=== PATIENT | female | born 1975 | race Caucasian/White ===

== ENCOUNTER 2019-10-20 09:28 | Outpatient (CLI) | payer MEDICAID, SELFPAY ==
--- NOTE | ~2019-10-20 | MMUS_ITS ---
EXAMINATION: MM screen LT diag RT w manuela, US breast RT limited HISTORY: Low up right breast masses TECHNIQUE: Additional 3-D tomosynthesis images of the right breast were performed and synthetic 2-D i mages were generated. Digital screening left mammogram performed with tomographic images. CAD analysi s was submitted and interpreted. High resolution right breast ultrasound was performed. COMPARISON: Comparison to multiple prior studies sequentially, with oldest reviewed study dated 12/28. BREAST PARENCHYMAL COMPOSITION: The breasts are extremely dense, which lowers the sensitivity of mamm ography FINDINGS: MAMMOGRAPHIC FINDINGS: The breasts are extremely dense, which lowers the sensitivity of mammography. There are no suspicious masses, calcifications or architectural distortion in either breast to suggest malignancy. ULTRASOUND: Right breast ultrasound: There are multiple cysts scattered throughout the right breast. There is an intramammary lymph node a t 11:00, 4 cm from the nipple measuring 8 mm. Largest cyst is 11:00 measuring 1.3 cm greatest dimensi on. No suspicious masses or calcifications to suggest malignancy. IMPRESSION: 1. No evidence for malignancy in either breast. 2. Routine yearly screening mammogram and regular clinical breast examination are recommended. BI-RADS Category 2: Benign finding(s). Reviewed, dictated and finalized at location A. IMPRESSION: 1. No evidence for malignancy in either breast. 2. Routine yearly screening mammogram and regular clinical breast examination a re recommended. BI-RADS Category 2: Benign finding(s).
[2019-10-20 09:39] LABS: Basophils Absolute Auto 0.03 K/mm3 (0.00-0.10); Basophils Percent Auto 0.4 % (0.0-1.0); Eosinophils Absolute Auto 0.08 K/mm3 (0.02-0.50); Eosinophils Percent Auto 1.1 % (1.0-6.0); Hematocrit 41.2 % (35.0-49.0); Hemoglobin 13.6 g/dL (12.0-15.0); Immature Granulocyte Absolute 0.02 K/mm3 (0.00-0.00); Immature Granulocyte Percent A 0.3 % (0.0-0.0); Lymphocytes Absolute Auto 2.86 K/mm3 (1.10-4.50); Lymphocytes Percent Auto 37.8 % (18.0-42.0); Mean Corpuscular Hemoglobin 30.8 pg (27.0-31.0); Mean Corpuscular Volume 93.2 fL (78.0-102.0); Mean Platelet Volume 9.2 fl (9.2-11.8); Monocytes Absolute Auto 0.58 K/mm3 (0.10-0.90); Monocytes Percent Auto 7.7 % (2.0-11.0); Neutrophils Percent Auto 52.7 % (50.0-70.0); Platelet Count Result 295 K/mm3 (150-420); Red Blood Count 4.42 M/mm3 (4.20-5.40); Red Cell Distribution Width 12.3 % (11.6-14.4); White Blood Count 7.6 K/mm3 (4.8-10.8)
[2019-10-20 10:37] LABS: Alanine Aminotransferase 32 U/L (14-59); Alkaline Phosphatase 45 U/L (46-116); Anion Gap 9.8 mmol/L (7-16); Aspartate Amino Transferase 16 U/L (15-37); Bilirubin,Total 0.7 mg/dL (0.00-1.00); Blood Urea Nitrogen 15 mg/dL (7-18); Calcium 9.3 mg/dL (8.5-10.1); Carbon Dioxide 31 mmol/L (21-32); Chloride 103 mmol/L (98-108); Cholesterol 156 mg/dL (0-200); Estimated Glomerular Filt Rate > 60; Glucose 103 mg/dL (70-99); HDL Direct 47 mg/dL (40-60); LDL Cholesterol Calculated 97 mg/dL (<130); Osmolality Calculated 288 mOsm/kg (285-295); Potassium 4.8 mmol/L (3.5-5.1); Sodium 139 mmol/L (136-145); Thyroid Stimulating Hormone 0.83 uIU/mL (0.36-3.74); Triglycerides 60 mg/dL (0-150)
== END 2019-10-20 09:29 | disposition home or self-care (01) ==
PROVIDERS: PCP Family Medicine; Visit Provider Family Medicine
DX: Z12.31 Encounter for screening mammogram for malignant neoplasm of breast (principal); N63.10 Unspecified lump in the right breast, unspecified quadrant; E78.2 Mixed hyperlipidemia
CPT/HCPCS: 36415; 76642; 77063; 77065; 77067; 80053; 80061; 84443; 85025

== ENCOUNTER 2019-11-12 16:04 | Emergency (ER) | payer OTHER, SELFPAY ==
--- NOTE | ~2019-11-12 | XR_ITS ---
XR wrist LT min 3V DATE: 11/12/2019 17:14 INDICATION: Contusion, tender snuffbox, dorsal wrist pain. TECHNIQUE: 4 views COMPARISON: None FINDINGS: No fracture or dislocation, periosteal reaction or bone destruction. No chondrocalcinosis. No erosive change. Joint spaces are preserved. IMPRESSION: Negative Reviewed, dictated and finalized at location A. IMPRESSION: Negative
[2019-11-12 16:15] VITALS: BP 130/90; PULSE 93; RESP 14; TEMP 36.8; O2SAT 98
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
[2019-11-12] MEDS: IBUPROFEN 600 MG TABLET PO (17:28)
[2019-11-12 18:36] VITALS: RESP 15; O2SAT 100
== END 2019-11-12 18:37 | disposition home or self-care (01) ==
PROVIDERS: Emergency Provider Family Medicine; PCP Family Medicine
DX: S60.212A Contusion of left wrist, initial encounter (principal); W20.8XXA Other cause of strike by thrown, projected or falling object, initial encounter
CPT/HCPCS: 73110; 99281; 99283; A4565; A9270

== ENCOUNTER 2019-11-16 13:36 | Outpatient (CLI) | payer OTHER, SELFPAY ==
--- NOTE | ~2019-11-16 | XR_ITS ---
EXAMINATION: XR wrist LT min 3V DATE: 11/16/2019 13:50 INDICATION: Left wrist pain. TECHNIQUE: 4 views of left wrist were obtained. COMPARISON: Left wrist radiographs 11/12/2019 FINDINGS: Bone alignment is normal. No fracture. Joint spaces are well maintained. IMPRESSION: 1. Normal left wrist. Reviewed, dictated and finalized at location A. IMPRESSION: 1. Normal left wrist.
== END 2019-11-16 13:37 | disposition home or self-care (01) ==
LOC: CHSIMG 13:38
PROVIDERS: PCP Family Medicine; Visit Provider Family Medicine
DX: M25.532 Pain in left wrist (principal)
CPT/HCPCS: 73110

== ENCOUNTER 2020-03-11 10:29 | Outpatient (CLI) | payer OTHER, SELFPAY ==
--- NOTE | ~2020-03-11 | XR_ITS ---
EXAMINATION: XR lumbar spine 2-3V EXAM DATE: 03/11/2020 10:47 INDICATION: Lumbar radiculopathy, hip pain, possible gluteal tear. TECHNIQUE: Lumber spine frontal, lateral, lateral L5-S1 projections for interpretation. Comparison is made to prior examination from 11/12/2008. FINDINGS: There is mild disc disease L2-3. The vertebral body and disc heights are otherwise well ma intained. The vertebral bodies are aligned in the AP dimension. Mild lumbar facet arthropathy. No reed dence of spondylolysis. Sacrum, sacroiliac joints, sacral arcuate lines are intact. Paraspinal soft t issue is unremarkable. IMPRESSION: Mild lumbar spondylosis. Reviewed, dictated and finalized at location A. 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
== END 2020-03-11 10:30 | disposition home or self-care (01) ==
LOC: CHSLAB 10:31
PROVIDERS: PCP Family Medicine; Visit Provider Family Medicine
DX: M54.16 Radiculopathy, lumbar region (principal)
CPT/HCPCS: 72100

== ENCOUNTER 2020-03-15 16:00 | Outpatient (CLI) | payer OTHER, SELFPAY ==
--- NOTE | ~2020-03-15 | XR_ITS ---
XR hip RT min 2V 03/15/2020 16:14 INDICATION: Right hip pain PROCEDURE: 2 views right hip COMPARISON: 10/26/2006 FINDINGS: Fracture, dislocation or subluxation is not identified. No significant joint space narrowin g. The soft tissues appear within normal limits. No foreign bodies are identified. IMPRESSION: 1: NO ACUTE BONE OR JOINT ABNORMALITY IDENTIFIED. Reviewed, dictated and finalized at location A. ET SORTER
== END 2020-03-15 16:01 | disposition home or self-care (01) ==
LOC: CHSIMG 16:01
PROVIDERS: PCP Family Medicine; Visit Provider Family Medicine
DX: M25.551 Pain in right hip (principal)
CPT/HCPCS: 73502

== ENCOUNTER 2020-04-09 14:21 | Outpatient (RCR) | payer OTHER, SELFPAY ==
--- NOTE | 2020-04-10 06:47 | PTOPEVAL ---
Thank you for referring Devika Allan to [facility].? The patient is scheduled to be seen for therapy? _2___x/week for 12 visits. Please review, sign, date and return this plan of care SHELLY. I agree with and certify that the following plan of care is medically necessary. Referring Physician Date Admitting Provider: Attending Provider: Maury Smith MD Referring Provider: *PT Outpatient Evaluation Start: 04/09/20 15:05 Freq: Status: Active Protocol: Document 04/09/20 15:05 MAURICIO (Rec: 04/09/20 16:11 MAURICIO [email or web address]) Therapy Assessment Status Assessment Status Assessment Status Evaluation Outpatient Past Medical History Musculoskeletal History Hx Orthopedic Surgery Yes: LEFT ULNAR Hx Other Musculoskeletal Disorders Yes: SI DYSFUNCTION AND DDD Reproductive History Hx Other Reproductive Disorders Yes: CERVICAL ABLATION Psychosocial History Hx Depression Yes Evaluation Information Problem Diagnosis right hip pain Onset 03/18/20 Additional Evaluation Detail Pt. scores 15/80 on the LEFS Subjective Information Pt. reports that she has had Query Text:As Reported By Patient/ pain in the area of the right Family buttock since 2002. She reports that her pain is constant. Pt. reports that weather increases her pain as well as any prolonged positions. She reports that she does not drive due to the pain and weakness in her leg. She states that her leg gives out and she has fallen because the right l.e. will give out. she has seen speicalist in the past with little relief from treatment interventions. She has had lumbar injections and therapy in the past without relief. Pt. reports that she has had recent xray and has not had recent MRI. Pt. reports that she is currently off work due to her pain and has not worked in 3 years. She reports that her goal is to decrease her pain. Prior Level of Function Activity Level (Last 3 Months) Occupation disabled Hand Dominance Right Activity of Daily Living Ability Independent Indoor/Home Mobility
--- NOTE | 2020-07-01 17:17 | PCPTNOTE ---
Pt. attended a total of 7 treatment sessions from 04/09/20 to 05/02/20. She has failed to return to the clinic and will be discharged from our care. Refer to pt. last daily note for dischare status. Jonel Santos, MPT
== END 2020-05-02 09:14 | disposition home or self-care (01) ==
LOC: CHSPT 14:21
PROVIDERS: PCP Family Medicine; Visit Provider Family Medicine
DX: M25.551 Pain in right hip (principal)
CPT/HCPCS: 97014; 97110; 97140; 97161; G0283

== ENCOUNTER 2020-08-01 12:16 | Outpatient (CLI) | payer OTHER, SELFPAY ==
--- NOTE | 2020-08-14 12:29 | WPDHOLTEREM ---
Holter/Event Monitor Holter/Event Monitor Date of procedure: 08/01/20 Procedure Type: event monitor Indications: Palpitations Conclusion: 1. 4 days event monitor between 08/01/20-08/14/20. There are 15 available transmissions for analysis. 2. Predominant rhythm is sinus rhythm. HR range 55-138 bpm; average HR 78 bpm. 3. There are occasional premature supraventricular complexes with total burden of <1%. There is one episode of atrial tachycardia at 133 bpm lasting 5 beats and one episode of supraventricular tachycardia at 138 bpm lasting 6 beats. 4. There are occasional premature ventricular complexes with total burden of <1%. No ventricular tachycardia. 5. No significant pauses greater than 2 seconds. 6. Patient reports 8 episodes of symptoms of skipped beats, heart racing, lightheadedness, symptoms other than listed which demonstrate sinus rhythm HR range 62-138 bpm and atrial tachycardia and supraventricular tachycardia mentioned above.
== END 2020-08-01 12:17 | disposition home or self-care (01) ==
LOC: CHSCARD 12:20
PROVIDERS: PCP Family Medicine; Visit Provider Family Medicine
DX: R00.2 Palpitations (principal)
CPT/HCPCS: 93270

== ENCOUNTER 2020-10-10 15:51 | Emergency (ER) | payer OTHER, SELFPAY | END 2020-10-10 16:00 | disposition left against medical advice (07) | PROVIDERS: Emergency Provider Emergency Medicine; PCP Family Medicine | DX: Z00.00 Encounter for general adult medical examination without abnormal findings (principal) | CPT/HCPCS: 99199 ==

== ENCOUNTER 2020-11-04 11:01 | Outpatient (CLI) | payer OTHER, SELFPAY ==
--- NOTE | ~2020-11-04 | XR_ITS ---
EXAMINATION: XR knee LT 3V DATE: 11/04/2020 11:21 INDICATION: Left knee pain. TECHNIQUE: 3 views of left knee were obtained. COMPARISON: None. FINDINGS: Bone alignment is normal. No fracture. There is mild osteoarthritis of patellofemoral noemi rtment characterized by tiny marginal osteophytes. There is no knee joint effusion. IMPRESSION: 1. Mild left knee osteoarthritis. Reviewed, dictated and finalized at location A.
== END 2020-11-04 11:02 | disposition home or self-care (01) ==
LOC: CHSIMG 11:02
PROVIDERS: PCP Family Medicine; Visit Provider Family Medicine
DX: M25.562 Pain in left knee (principal)
CPT/HCPCS: 73562

== ENCOUNTER 2020-12-17 12:18 | Outpatient (CLI) | payer MEDICARE, MEDICAID, SELFPAY ==
--- NOTE | ~2020-12-17 | MM_ITS ---
EXAMINATION: MM screening trish BI w manuela HISTORY: Screening mammogram TECHNIQUE: Craniocaudal and mediolateral oblique 3-D tomosynthesis images were obtained and synthetic 2-D images were generated. CAD analysis was submitted and interpreted. COMPARISON: 10/20/2019 BREAST PARENCHYMAL COMPOSITION: The breasts are heterogeneously dense, which may obscure small masses . FINDINGS: There is no evidence of suspicious mass, calcification, or architectural distortion to sugg est malignancy in either breast. There has been no suspicious interval change. IMPRESSION: 1. No mammographic evidence of malignancy. 2. Recommend routine screening mammography in one year. BI-RADS Category 1: Negative Reviewed, dictated and finalized at location A.
== END 2020-12-17 12:19 | disposition home or self-care (01) ==
LOC: CHSIMG 12:22
PROVIDERS: PCP Family Medicine; Visit Provider Family Medicine
DX: Z12.31 Encounter for screening mammogram for malignant neoplasm of breast (principal)
CPT/HCPCS: 77063; 77067

== ENCOUNTER 2021-01-03 08:02 | Outpatient (CLI) | payer MEDICARE, SELFPAY ==
[2021-01-03 08:20] LABS: Basophils Absolute Auto 0.04 K/mm3 (0.00-0.10); Basophils Percent Auto 0.5 % (0.0-1.0); Eosinophils Absolute Auto 0.08 K/mm3 (0.02-0.50); Eosinophils Percent Auto 1.1 % (1.0-6.0); Hemoglobin 15.5 g/dL (12.0-15.0); Immature Granulocyte Absolute 0.05 K/mm3 (0.00-0.00); Immature Granulocyte Percent A 0.7 % (0.0-0.0); Lymphocytes Absolute Auto 3.25 K/mm3 (1.10-4.50); Mean Corpuscular HGB Conc 33.7 g/dL (32.0-36.0); Mean Corpuscular Hemoglobin 31.1 pg (27.0-31.0); Mean Corpuscular Volume 92.4 fL (78.0-102.0); Mean Platelet Volume 9.4 fl (9.2-11.8); Monocytes Absolute Auto 0.51 K/mm3 (0.10-0.90); Monocytes Percent Auto 6.7 % (2.0-11.0); Neutrophils Absolute Auto 3.6 K/mm3 (1.7-7.2); Platelet Count Result 334 K/mm3 (150-420); Red Blood Count 4.98 M/mm3 (4.20-5.40); Red Cell Distribution Width 12.5 % (11.6-14.4); White Blood Count 7.6 K/mm3 (4.8-10.8)
[2021-01-03 10:08] LABS: Alanine Aminotransferase 31 U/L (14-59); Albumin Level 4.1 g/dL (3.4-5.0); Alkaline Phosphatase 53 U/L (46-116); Anion Gap 12 mmol/L (8-16); Aspartate Amino Transferase 11 U/L (15-37); Bilirubin,Total 0.8 mg/dL (0.00-1.00); Blood Urea Nitrogen 13 mg/dL (7-18); Calcium 9.6 mg/dL (8.5-10.1); Carbon Dioxide 26 mmol/L (21-32); Chloride 104 mmol/L (98-108); Cholesterol 210 mg/dL (0-200); Estimated Glomerular Filt Rate > 60; Glucose 99 mg/dL (70-99); HDL Direct 35 mg/dL (40-60); LDL Cholesterol Calculated 128 mg/dL (<130); Osmolality Calculated 294 mOsm/kg (285-295); Potassium 4.5 mmol/L (3.5-5.1); Sodium 142 mmol/L (136-145); Total Protein 7.1 g/dL (6.4-8.2); Triglycerides 235 mg/dL (0-150)
== END 2021-01-03 08:03 | disposition home or self-care (01) ==
PROVIDERS: PCP Family Medicine; Visit Provider Family Medicine
DX: R53.83 Other fatigue (principal); Z13.220 Encounter for screening for lipoid disorders; Z00.00 Encounter for general adult medical examination without abnormal findings; Z13.6 Encounter for screening for cardiovascular disorders
CPT/HCPCS: 36415; 80053; 80061; 85025

== ENCOUNTER 2021-04-03 16:15 | Outpatient (CLI) | payer MEDICARE, SELFPAY ==
[2021-04-03 17:15] LABS: Influenza Control Valid (Valid); SARS-CoV-2 Ag Positive (Negative)
== END 2021-04-03 16:16 | disposition home or self-care (01) ==
LOC: CHSLAB 16:22
PROVIDERS: PCP Family Medicine; Visit Provider Family Medicine
DX: U07.1 COVID-19 (principal); R50.9 Fever, unspecified
CPT/HCPCS: 87426; 87804; C9803

== ENCOUNTER 2021-05-21 09:13 | Outpatient (CLI) | payer MEDICARE, MEDICAID, SELFPAY ==
--- NOTE | ~2021-05-21 | XR_ITS ---
EXAMINATION:XR_CERV2-3V_CR DATE: 05/21/2021 09:41 INDICATION: Neck pain TECHNIQUE: AP, lateral, and odontoid views of the cervical spine are provided. COMPARISON: None FINDINGS: Alignment is normal. The odontoid is intact. No fracture is identified. The vertebral body heights are normal. There is mild loss of intervertebral disc space height at C5-6 and C6-7. Small de generative osteophytes project from the anterior endplates of multiple vertebral bodies. There is mod erate multilevel facet osteoarthritis. Prevertebral soft tissues are normal. IMPRESSION: 1. Mild to moderate cervical spondylosis without acute findings. Reviewed, dictated and finalized at location A. 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
== END 2021-05-21 09:14 | disposition home or self-care (01) ==
PROVIDERS: PCP Family Medicine; Visit Provider Family Medicine
DX: M54.12 Radiculopathy, cervical region (principal)
CPT/HCPCS: 72040

== ENCOUNTER 2021-06-05 09:24 | Outpatient (CLI) | payer MEDICARE, MEDICAID, SELFPAY ==
--- NOTE | 2021-06-05 11:00 | NEURO_ITS ---
Impression:: # Complains of right upper extremity numbness. # No Carpal Tunnel Syndrome or ulnar neuropathy. # Normal nerve conduction study. # Needle/EMG exam not requested. Nerve Conduction Studies Anti Sensory Summary Table Stim Site NR Peak (ms) P-T Amp (?V) Site1 Site2 Delta-P (ms) Dist (cm) Edward (m/s) Right Median Anti Sensory (2-3nd Digit) Wrist 2.8 63.0 Wrist 2-3nd Digit 2.8 14.0 50 Wrist 2.8 40.1 Wrist 2-3nd Digit 2.8 14.0 50 Right Radial Anti Sensory (Base 1st Digit) Wrist 2.1 17.5 Wrist Base 1st Digit 2.1 0.0 Right Ulnar Anti Sensory (5th Digit) Wrist 2.1 37.6 Wrist 5th Digit 2.1 14.0 67 Motor Summary Table Stim Site NR Onset (ms) O-P Amp (mV) Site1 Site2 Delta-0 (ms) Dist (cm) Edward (m/s) Right Median Motor (Abd Poll Brev) Wrist 3.1 3.2 Elbow Wrist 4.5 26.0 58 Elbow 7.6 2.8 Right Ulnar Motor (Abd Dig Minimi) Wrist 2.6 4.9 A Elbow Wrist 4.9 28.0 57 A Elbow 7.5 4.2 F Wave Studies NR F-Lat (ms) L-R F-Lat (ms) Right Median (Mrkrs) (Abd Poll Brev) 27.19 Right Ulnar (Mrkrs) (Abd Dig Min) 27.08 MTDD
== END 2021-06-05 09:25 | disposition home or self-care (01) ==
LOC: ANHNEURO 09:27
PROVIDERS: PCP Family Medicine; Visit Provider Family Medicine
DX: M54.12 Radiculopathy, cervical region (principal)
CPT/HCPCS: 95909

== ENCOUNTER 2021-06-05 11:51 | Outpatient (CLI) | payer MEDICARE, MEDICAID, SELFPAY ==
--- NOTE | ~2021-06-05 | XR_ITS ---
EXAMINATION: XR chest 2V DATE: 06/05/2021 12:08 INDICATION: Shortness of breath. Cough. TECHNIQUE: Frontal and lateral views of the chest were obtained. COMPARISON: None. FINDINGS: The chest demonstrates clear lungs without pneumonia, pleural effusion, or pneumothorax. Th e heart size is normal. Surgical clips in the right upper quadrant are likely from cholecystectomy. IMPRESSION: 1. No acute cardiopulmonary disease. Reviewed, dictated and finalized at location A. 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
== END 2021-06-05 11:52 | disposition home or self-care (01) ==
LOC: CHSIMG 11:54
PROVIDERS: PCP Family Medicine; Visit Provider Family Medicine
DX: R06.02 Shortness of breath (principal); R05.9 Cough, unspecified
CPT/HCPCS: 71046

== ENCOUNTER 2021-06-06 09:39 | Outpatient (CLI) | payer MEDICARE, MEDICAID, SELFPAY | END 2021-06-06 09:40 | disposition home or self-care (01) | LOC: CHSCARD 09:40 | PROVIDERS: PCP Family Medicine; Visit Provider Family Medicine | DX: R06.02 Shortness of breath (principal); R05.9 Cough, unspecified | CPT/HCPCS: 94060; 94726; 94729 ==

== ENCOUNTER 2021-06-19 00:08 | Day surgery (SDC) | payer MEDICARE, MEDICAID, SELFPAY ==
[2021-06-05 14:51] VITALS: BMI 31.2
--- NOTE | 2021-06-19 06:33 | WPDANESEPPF ---
Anes - Initial Pre Proc Eval Procedure: Operation Date: 06/19/21 08:00 Proposed Procedures p Screening Colonoscopy - Misael Love DO Date/Time: 06/19/21 06:33 Surgeon: Misael Love DO Pre Op Diagnosis: neoplasm screening Patient Data Age: 45 Gender: F Height: 1.6 m Weight: 80 kg Allergies Allergy/AdvReac Type Severity Reaction Status Date / Time naproxen Allergy Unknown Verified 06/19/21 07:00 Sulfa (Sulfonamide Allergy Unknown Verified 06/19/21 07:00 Antibiotics) tramadol Allergy Unknown Verified 06/19/21 07:00 IV DYE Allergy Unknown Uncoded 06/05/21 14:48 Home Medications Medication Instructions Recorded Confirmed Type citalopram 40 mg PO DAILY 11/12/19 06/19/21 History cyclobenzaprine 10 mg PO HS PRN 11/12/19 06/19/21 History hydrocodone-acetaminophen 1 tablet PO PRN 11/12/19 06/19/21 History albuterol sulfate 2 puff INHALATION PRN 06/05/21 06/19/21 History famotidine 40 mg PO DAILY 06/05/21 06/19/21 History Patient hx anesthesia problems: none Family hx anesthesia problems: none Results Review: All pre-operative results and documents have been reviewed as part of the pre-operative evaluation. [facility] Past Medical History Medical History (Updated 06/19/21 @ 06:34 by Eugene Marie DO) Asthma COPD (chronic obstructive pulmonary disease) DDD (degenerative disc disease) Depression GERD (gastroesophageal reflux disease) SI (sacroiliac) joint dysfunction Social History Social History (System 04/28/21 @ 09:07 by Yaneth Erickson) Smoking status: Current some day smoker Tobacco type: e-cigarettes/vaping Alcohol intake: never Substance use: never Substance use type: does not use Living arrangements: with family Spiritual care concerns: No Anes - Eval Final PreProcedure Day of Procedure 06/19/21 06:33 Patient weight: obese Heart: regular rate and rhythm Lungs: clear to auscultation and normal air movement Airway: Mallampati scale class II Neurological: alert and oriented Last oral intake: >/= 8 hours ASA classification: III Emergent: no Anesthetic plan: proceed Anesthesia type and monitoring: general GIVS and standard monitoring Results Review: All pre-operative results and documents have been reviewed as part of the pre-operative evaluation. Informed Consent: The patient's anesthetic plan and its attendant risks and benefits were discussed with the patient/family/POA. Questions were solicited and answers provided to the satisfaction of the patient/family/POA.
[2021-06-19 06:45] VITALS: BP 113/71; PULSE 100; RESP 18; TEMP 37.3; O2SAT 100; BMI 31.4
[2021-06-19] MEDS: LACTATED RINGERS 1,000 ML 150 ML IV CONT (07:15)
--- NOTE | 2021-06-19 08:05 | PM.IMHP ---
H&P: HPI History of Present Illness Date/Time: 06/19/21 08:05 Chief Complaint: screening for colorectal cancer Narrative: this is a 45-year-old woman who presents for colonoscopy. She has some occasional constipation but denies any other bowel habit changes. She has never had a colonoscopy before. She has an uncle who had colon cancer, but denies any first-degree relatives with colon cancer. She denies any hematochezia or melena. Review of Systems Review of Systems: All systems reviewed & are unremarkable except as noted in HPI and below Constitutional: Constitutional: Denies chills, Denies fever(s), Denies headache(s) and Denies weight loss Eyes: Eyes: Denies change in vision ENT: Denies dizziness, Denies headache(s), Denies neck mass and Denies throat swelling Cardiovascular: Cardiovascular: Denies chest pain, Denies lightheadedness and Denies dyspnea Respiratory: Respiratory: Denies cough, Denies dyspnea and Denies wheezing Gastrointestinal: Gastrointestinal: Denies abdominal pain, Denies change in bowel habits, Denies nausea and Denies vomiting Genitourinary: Genitourinary: Denies hematuria and Denies dysuria Musculoskeletal: Musculoskeletal: Reports as per HPI Integumentary/Breasts: Skin/Breast: Reports as per HPI Neurologic: Denies dizziness and Denies headache(s) Allergic/Immunologic: Allergic/Immunologic: Denies throat swelling and Denies wheezing [facility] Past Medical History Medical History (Updated 06/19/21 @ 08:06 by Misael Love DO) Asthma COPD (chronic obstructive pulmonary disease) DDD (degenerative disc disease) Depression GERD (gastroesophageal reflux disease) SI (sacroiliac) joint dysfunction Social History Social History (System 04/28/21 @ 09:07 by Yaneth Erickson) Smoking status: Current some day smoker Tobacco type: e-cigarettes/vaping Alcohol intake: never Substance use: never Substance use type: does not use Living arrangements: with family Spiritual care concerns: No Meds Home Medications and Allergies Home Medications Medication Instructions Recorded Confirmed Type citalopram 40 mg PO DAILY 11/12/19 06/19/21 History cyclobenzaprine 10 mg PO HS PRN 11/12/19 06/19/21 History hydrocodone-acetaminophen 1 tablet PO PRN 11/12/19 06/19/21 History albuterol sulfate 2 puff INHALATION PRN 06/05/21 06/19/21 History famotidine 40 mg PO DAILY 06/05/21 06/19/21 History Allergies Allergy/AdvReac Type Severity Reaction Status Date / Time naproxen Allergy Unknown Verified 06/19/21 07:00 Sulfa (Sulfonamide Allergy Unknown Verified 06/19/21 07:00 Antibiotics) tramadol Allergy Unknown Verified 06/19/21 07:00 IV DYE Allergy Unknown Uncoded 06/05/21 14:48 Vital Signs Vital Signs - 24 hr 06/19/21 06:45 Temperature 37.3 C Pulse Rate 100 Respiratory Rate 18 Blood Pressure 113/71 Pulse Oximetry 100 Exam Const: General: no acute distress and alert Orientation/consciousness: patient oriented x3 HENMT: Head: normocephalic and atraumatic Ears: hearing grossly normal bilaterally General nose exam: Normal nares present Mouth: Yes Normal oral and palatal mucosa present Eyes: Periorbital: periorbital findings normal Sclera: sclerae normal EOM: EOMs intact bilaterally Neck: Neck: normal visual inspection, no lymphadenopathy and trachea midline Chest: Chest palpation & inspection: normal inspection of the chest Resp: Effort & Inspection: normal respiratory effort Auscultation: clear to auscultation bilaterally Cardio: Jugular venous distension: no JVD Rate: regular rate Rhythm: regular rhythm Heart sounds: S1 normal heart sound present and S2 normal heart sound present Peripheral pulses: Peripheral pulses 2+ throughout GI: Inspection: normal to inspection GI Palp: Yes Soft to palpation, No Tenderness to palpation present (GI), No Guarding due to palpation present (GI) and No Rebound tenderness present Percussion: Yes normal to percussion
[2021-06-19 08:55] VITALS: BP 107/78; PULSE 53; RESP 18; O2SAT 98
[2021-06-19 09:05] VITALS: BP 119/90; PULSE 92; RESP 20; O2SAT 98
[2021-06-19 09:15] VITALS: BP 122/72; PULSE 88; RESP 21; O2SAT 100
== END 2021-06-19 09:30 | disposition home or self-care (01) ==
PROVIDERS: PCP Family Medicine; Visit Provider Surgery
PROC: 0DJD8ZZ Inspection of Lower Intestinal Tract, Via Natural or Artificial Opening Endoscopic (ICD-10-PCS; CPT 45378; principal; 2021-06-19 08:00)
DX: Z12.11 Encounter for screening for malignant neoplasm of colon (principal); D12.2 Benign neoplasm of ascending colon; D12.3 Benign neoplasm of transverse colon; D12.5 Benign neoplasm of sigmoid colon; J44.9 Chronic obstructive pulmonary disease, unspecified; K21.9 Gastro-esophageal reflux disease without esophagitis; F32.9 Major depressive disorder, single episode, unspecified; F17.290 Nicotine dependence, other tobacco product, uncomplicated; Z79.51 Long term (current) use of inhaled steroids; E66.9 Obesity, unspecified; Z68.31 Body mass index [BMI] 31.0-31.9, adult
CPT/HCPCS: 45385; 88305; J2001; J2704; J7120

== ENCOUNTER 2021-09-26 08:16 | Outpatient (CLI) | payer MEDICARE, MEDICAID, SELFPAY ==
[2021-09-26 08:32] LABS: Basophils Absolute Auto 0.04 K/mm3 (0.00-0.10); Basophils Percent Auto 0.5 % (0.0-1.0); Eosinophils Absolute Auto 0.11 K/mm3 (0.02-0.50); Eosinophils Percent Auto 1.4 % (1.0-6.0); Hematocrit 42.5 % (35.0-49.0); Hemoglobin 14.3 g/dL (12.0-15.0); Immature Granulocyte Absolute 0.05 K/mm3 (0.00-0.00); Immature Granulocyte Percent A 0.6 % (0.0-0.0); Lymphocytes Absolute Auto 3.41 K/mm3 (1.10-4.50); Lymphocytes Percent Auto 43.8 % (18.0-42.0); Mean Corpuscular HGB Conc 33.6 g/dL (32.0-36.0); Mean Corpuscular Hemoglobin 31.4 pg (27.0-31.0); Mean Corpuscular Volume 93.4 fL (78.0-102.0); Mean Platelet Volume 9.5 fl (9.2-11.8); Monocytes Absolute Auto 0.59 K/mm3 (0.10-0.90); Monocytes Percent Auto 7.6 % (2.0-11.0); Neutrophils Absolute Auto 3.6 K/mm3 (1.7-7.2); Neutrophils Percent Auto 46.1 % (50.0-70.0); Platelet Count Result 323 K/mm3 (150-420); Red Blood Count 4.55 M/mm3 (4.20-5.40); Red Cell Distribution Width 12.1 % (11.6-14.4); White Blood Count 7.8 K/mm3 (4.8-10.8)
[2021-09-26 09:11] LABS: Alanine Aminotransferase 53 U/L (14-59); Albumin Level 3.9 g/dL (3.4-5.0); Alkaline Phosphatase 61 U/L (46-116); Anion Gap 7 mmol/L (8-16); Aspartate Amino Transferase 17 U/L (15-37); Bilirubin,Total 0.5 mg/dL (0.00-1.00); Blood Urea Nitrogen 10 mg/dL (7-18); Calcium 9.2 mg/dL (8.5-10.1); Carbon Dioxide 27 mmol/L (21-32); Chloride 106 mmol/L (98-108); Estimated Glomerular Filt Rate > 60; Potassium 3.8 mmol/L (3.5-5.1); Sodium 140 mmol/L (136-145); Thyroid Stimulating Hormone 0.95 uIU/mL (0.36-3.74); Total Protein 7.1 g/dL (6.4-8.2)
[2021-09-26 09:17] LABS: Glucose 117 mg/dL (70-99); Osmolality Calculated 290 mOsm/kg (285-295)
[2021-09-26 14:59] LABS: Hemoglobin A1C 4.9 % (<5.7)
[2021-09-30 20:55] LABS: FSH 60.9 mIU/mL (***); LH 37.4 mIU/mL (***)
[2021-10-02 15:37] LABS: Estrogen 167.2 pg/mL
== END 2021-09-26 08:17 | disposition home or self-care (01) ==
LOC: CHSLAB 08:19
PROVIDERS: PCP Family Medicine; Visit Provider Family Medicine
DX: R53.83 Other fatigue (principal); R23.2 Flushing; R73.9 Hyperglycemia, unspecified
CPT/HCPCS: 36415; 80053; 82672; 83001; 83002; 83036; 84443; 85025

== ENCOUNTER 2021-12-19 08:15 | Outpatient (CLI) | payer MEDICARE, MEDICAID, SELFPAY ==
--- NOTE | ~2021-12-19 | MM_ITS ---
EXAMINATION: MM screening [facility] BI w manuela HISTORY: Screening mammogram TECHNIQUE: Craniocaudal and mediolateral oblique 3-D tomosynthesis images were obtained and synthetic 2-D images were generated. CAD analysis was submitted and interpreted. COMPARISON: 12/17/2020, 10/20/2019 BREAST PARENCHYMAL COMPOSITION: The breasts are heterogeneously dense, which may obscure small masses . FINDINGS: There is no suspicious mass, calcification, or architectural distortion to suggest malignan cy in either breast. There has been no suspicious interval change. IMPRESSION: 1. No mammographic evidence of malignancy. 2. Recommend routine screening mammography in one year. BI-RADS Category 1: Negative Reviewed, dictated and finalized at location A.
== END 2021-12-19 08:16 | disposition home or self-care (01) ==
LOC: CHSIMG 08:16
PROVIDERS: PCP Family Medicine; Visit Provider Family Medicine
DX: Z12.31 Encounter for screening mammogram for malignant neoplasm of breast (principal)
CPT/HCPCS: 77063; 77067

== ENCOUNTER 2022-01-31 08:03 | Outpatient (CLI) | payer MEDICARE, SELFPAY ==
[2022-02-06 05:42] LABS: FSH 15.8 mIU/mL (***); LH 8.4 mIU/mL (***); Progesterone 102.1 ng/mL (***); Prolactin 7.4 ng/mL (***)
[2022-02-06 22:13] LABS: Estradiol, Ultrasensitive 39 pg/mL
== END 2022-01-31 08:04 | disposition home or self-care (01) ==
LOC: CHSLAB 08:06
PROVIDERS: PCP Family Medicine; Visit Provider Family Medicine
DX: N95.1 Menopausal and female climacteric states (principal)
CPT/HCPCS: 36415; 82670; 83001; 83002; 84144; 84146

== ENCOUNTER 2022-02-13 10:13 | Outpatient (CLI) | payer MEDICARE, SELFPAY ==
[2022-02-13 11:00] LABS: Influenza A QL RT-PCR Negative (Negative); Influenza B QL RT-PCR Negative (Negative); SARS-CoV-2 RNA PCR Positive (Negative)
== END 2022-02-13 10:14 | disposition home or self-care (01) ==
LOC: CHSLAB 10:16
PROVIDERS: PCP Family Medicine; Visit Provider Family Medicine
DX: U07.1 COVID-19 (principal); R05.1 Acute cough
CPT/HCPCS: 87636

== ENCOUNTER 2022-03-28 06:35 | Emergency (ER) | payer MEDICARE, MEDICAID, SELFPAY ==
[2022-03-28 06:40] VITALS: BP 153/101; PULSE 95; RESP 95; TEMP 36; O2SAT 100
--- NOTE | 2022-03-28 06:52 | ED.EYEPROB ---
HPI - Eye Problem General Chief complaint: Eye Problems Stated complaint: right eye injury Time Seen by Provider: 03/28/22 06:51 Source: patient Mode of arrival: ambulatory Limitations: no limitations History of Present Illness HPI Narrative: 46-year-old female presents to the ER with a 3 day history of -- right eye pain and watering. discharge is clear. Vision is blurred chief complaint: eye pain and eye redness Onset (ago): day(s) ( started 3 days ago) Onset description: sudden Duration: constant Location: right eye Place: home Severity: mild Severity scale (1-10): 5 If Pain, Quality: aching Associated symptoms: none Treatments Prior to Arrival: none Related Data Patient tetanus UTD: Yes Home Medications Medication Instructions Recorded Confirmed citalopram 40 mg tablet 40 mg PO DAILY 11/12/19 06/19/21 cyclobenzaprine 10 mg tablet 10 mg PO HS PRN Pain 11/12/19 03/28/22 hydrocodone 5 mg-acetaminophen 325 1 tablet PO PRN 11/12/19 03/28/22 mg tablet albuterol sulfate 90 mcg/actuation 2 puff inhalation PRN 06/05/21 06/19/21 aerosol inhaler famotidine 40 mg tablet 40 mg PO DAILY 06/05/21 06/19/21 Allergies Allergy/AdvReac Type Severity Reaction Status Date / Time naproxen Allergy Unknown Verified 03/28/22 06:47 Sulfa (Sulfonamide Allergy Unknown Verified 03/28/22 06:47 Antibiotics) tramadol Allergy Unknown Verified 03/28/22 06:47 IV DYE Allergy Unknown Uncoded 06/05/21 14:48 Review of Systems Review of Systems: All systems reviewed & are unremarkable except as noted in HPI and below Constitutional: Constitutional: Reports as per HPI and Reports no additional constitutional complaints Eyes: Eyes: Reports as per HPI, Reports no additional eye complaints and Reports photophobia Comments: right eye pain and watering ENT: Reports system reviewed and no additional complaints, except as documented and Reports as per HPI Respiratory: Respiratory: Reports as per HPI and Reports no additional respiratory complaints Genitourinary: Genitourinary: Reports no additional female genitourinary complaints and Reports as per HPI Musculoskeletal: Musculoskeletal: Reports no additional musculoskeletal complaints and Reports as per HPI Neurologic: Reports system reviewed and no additional complaints, except as documented and Reports as per HPI Psychiatric: Psychiatric: Reports no additional psychiatric complaints and Reports as per HPI Endocrine: Endocrine: Reports no additional endocrine complaints and Reports as per HPI Hematologic/Lymphatic: Hematologic/Lymphatic: Reports no additional hematologic/lymphatic complaints and Reports as per HPI Allergic/Immunologic: Allergic/Immunologic: Reports no additional allergic/immunologic complaints and Reports as per HPI [facility] Past Medical History Medical History Asthma COPD (chronic obstructive pulmonary disease) DDD (degenerative disc disease) Depression GERD (gastroesophageal reflux disease) SI (sacroiliac) joint dysfunction Social History Social History Smoking status: Current some day smoker Tobacco type: e-cigarettes/vaping Alcohol intake: never Substance use: never Substance use type: does not use Spiritual care concerns: No Exam Const: General: no acute distress Orientation/consciousness: patient oriented x3 HENMT: Head: normal to inspection Ears: external ears normal Face/Nose/Sinus: Normal external nose present Face and sinus: normal facial exam Mouth: Yes Normal oral and palatal mucosa present Throat: posterior oropharynx normal Eyes: Conjunctivae: conjunctival abnormality ( conjunctiva is erythematous.) right Pupils: Equal, round and reactive pupils present EOM: EOMs intact bilaterally Direct Ophthalmoscopy: photophobia Other: Unable to visualize the fundus secondary to photophobia tetracaine 2 drops insti
[2022-03-28] MEDS: DACRIOSE EYE IRRIGATION 118 ML BOTTLE RIGHT EYE (07:06)
[2022-03-28] MEDS: FLUORESCEIN SOD 1 MG/STRIP EACH EYE (07:07)
[2022-03-28] MEDS: TETRACAINE HCL 0.5% OPHTH SOLN 4 ML BTL 1 DROP EACH EYE (07:07)
== END 2022-03-28 07:28 | disposition home or self-care (01) ==
PROVIDERS: Emergency Provider Internal Medicine Critical Care Medicine; PCP Family Medicine
DX: S05.01XA Injury of conjunctiva and corneal abrasion without foreign body, right eye, initial encounter (principal); H57.11 Ocular pain, right eye; X58.XXXA Exposure to other specified factors, initial encounter; J44.9 Chronic obstructive pulmonary disease, unspecified; K21.9 Gastro-esophageal reflux disease without esophagitis; F32.A Depression, unspecified; F17.290 Nicotine dependence, other tobacco product, uncomplicated; Z79.51 Long term (current) use of inhaled steroids; Z79.891 Long term (current) use of opiate analgesic
CPT/HCPCS: 99283; A9270

== ENCOUNTER 2022-04-11 09:16 | Outpatient (CLI) | payer MEDICARE, SELFPAY ==
[2022-04-11 09:34] LABS: Add Urine Microscopic? YES; Appearance Urine Clear (Clear); Basophils Absolute Auto 0.03 K/mm3 (0.00-0.10); Basophils Percent Auto 0.4 % (0.0-1.0); Bilirubin Urine Negative (Negative); Blood Urine 2+ (Negative); Color Urine Light Yellow (Yellow); Eosinophils Absolute Auto 0.11 K/mm3 (0.02-0.50); Eosinophils Percent Auto 1.4 % (1.0-6.0); Glucose Urine UA Negative (Negative); Hematocrit 40.7 % (35.0-49.0); Hemoglobin 14.1 g/dL (12.0-15.0); Immature Granulocyte Absolute 0.03 K/mm3 (0.00-0.00); Immature Granulocyte Percent A 0.4 % (0.0-0.0); Ketones Urine Negative (Negative); Leukocyte Esterase Ur Negative (Negative); Lymphocytes Absolute Auto 3.42 K/mm3 (1.10-4.50); Lymphocytes Percent Auto 44.9 % (18.0-42.0); Mean Corpuscular HGB Conc 34.6 g/dL (32.0-36.0); Mean Corpuscular Hemoglobin 31.8 pg (27.0-31.0); Mean Corpuscular Volume 91.9 fL (78.0-102.0); Mean Platelet Volume 9.3 fl (9.2-11.8); Monocytes Absolute Auto 0.49 K/mm3 (0.10-0.90); Monocytes Percent Auto 6.4 % (2.0-11.0); Neutrophils Absolute Auto 3.5 K/mm3 (1.7-7.2); Neutrophils Percent Auto 46.5 % (50.0-70.0); Nitrate Urine Negative (Negative); Platelet Count Result 315 K/mm3 (150-420); Protein Urine Negative (Negative); Red Blood Count 4.43 M/mm3 (4.20-5.40); Red Cell Distribution Width 12.1 % (11.6-14.4); Specific Grav Ur <= 1.005 (1.010-1.020); Urobilinogen Urine 0.2 mg/dL (0.2-1.0); White Blood Count 7.6 K/mm3 (4.8-10.8)
[2022-04-11 09:38] LABS: Bacteria Urine Trace /hpf; Squamous Epithelial Cell Urine Rare /hpf (Few); WBC Urine None seen /hpf (0-3)
[2022-04-11 09:41] LABS: Creatinine Urine < 13.00 mg/dL (40-278); Microalbumin Urine Random < 13.0 mg/L
[2022-04-11 10:21] LABS: Alanine Aminotransferase 60 U/L (14-59); Albumin Level 3.8 g/dL (3.4-5.0); Alkaline Phosphatase 52 U/L (46-116); Anion Gap 5 mmol/L (8-16); Aspartate Amino Transferase 20 U/L (15-37); Bilirubin,Total 0.7 mg/dL (0.00-1.00); Blood Urea Nitrogen 11 mg/dL (7-18); Carbon Dioxide 29 mmol/L (21-32); Chloride 104 mmol/L (98-108); Estimated Glomerular Filt Rate > 60; Glucose 123 mg/dL (70-99); Osmolality Calculated 286 mOsm/kg (285-295); Potassium 3.8 mmol/L (3.5-5.1); Sodium 138 mmol/L (136-145)
[2022-04-13 10:35] LABS: Hemoglobin A1C 5.1 % (<5.7)
== END 2022-04-11 09:17 | disposition home or self-care (01) ==
LOC: CHSLAB 09:18
PROVIDERS: PCP Family Medicine; Visit Provider Family Medicine
DX: R03.0 Elevated blood-pressure reading, without diagnosis of hypertension (principal); R73.01 Impaired fasting glucose; R53.83 Other fatigue
CPT/HCPCS: 36415; 80053; 81001; 82043; 83036; 84443; 85025

== ENCOUNTER 2022-04-14 18:20 | Emergency (ER) | payer MEDICARE, MEDICAID, SELFPAY ==
--- NOTE | ~2022-04-14 | CT_ITS ---
EXAMINATION: CT abdomen pelvis wo con DATE: 04/14/2022 18:57 INDICATION: Left flank pain. TECHNIQUE: Computed tomography (CT) of the abdomen and pelvis was performed without intravenous contr ast. Automated exposure control and iterative reconstruction technique were employed. The dose-length product was 689.04 mGy-cm. COMPARISON: None. FINDINGS: The visualized portions of the lung bases demonstrate mild atelectasis. No pleural effusion . The heart size is normal. No pericardial effusion. The liver is normal. There are changes of cholec ystectomy. The spleen, pancreas, and adrenal glands are normal. There is a 10 mm cyst in right kidney . There is a 1 mm stone in right kidney. There is a 2 mm stone in left kidney. There is a 9 mm cyst i n left kidney. There is a left inguinal hernia containing fat. There is a lipoma in left gluteus mini mus muscle. There are no dilated loops of bowel. There is diverticulosis of the colon without evidenc e of diverticulitis. The appendix is normal. There are no pathologically enlarged lymph nodes. There is no free intraperitoneal fluid. There is a benign bone island in left pelvis. There is mild thoraco lumbar spondylosis. IMPRESSION: 1. Small bilateral nonobstructing kidney stones. 2. Left inguinal hernia containing fat. Reviewed, dictated and finalized at location A. NOL QUALITY LEADER
[2022-04-14 18:20] VITALS: BP 165/95; PULSE 87; RESP 18; TEMP 36.9; O2SAT 100
--- NOTE | 2022-04-14 18:25 | ED.FEMALEGU ---
HPI - Female Genitourinary General Chief complaint: Urogenital-Female Stated complaint: blood in urine Time Seen by Provider: 04/14/22 18:24 Source: patient and RN notes reviewed Mode of arrival: ambulatory Limitations: no limitations History of Present Illness HPI Narrative: patient states she has had some symptoms of UTI for approximately 1 week and then started having some hematuria 4 days ago. She saw clots in her urine today and got a little more concerned. She does have a history of some kidney stones the past. MD elicited complaint: dysuria Onset (ago): week(s) (1) Location of symptoms: urethra and low back Severity: moderate Female Urogenital Radiation: Non-Radiating Quality of pain: dull and aching Consistency: intermittent Vaginal discharge: none Vaginal bleeding: none Urinary symptoms: Dysuria, Urgency and Hematuria Treatment prior to arrival: none Patient : No Related Data Home Medications Medication Instructions Recorded Confirmed citalopram 40 mg tablet 40 mg PO DAILY 11/12/19 04/14/22 cyclobenzaprine 10 mg tablet 10 mg PO HS PRN Pain 11/12/19 04/14/22 estradiol 0.5 mg tablet 0.5 mg PO DAILY 04/14/22 04/14/22 famotidine 40 mg tablet 40 mg PO DAILY 04/14/22 04/14/22 fluticasone propionate 100 2 inh inhalation DAILY 04/14/22 04/14/22 mcg/actuation blister powder for inhalation (Flovent Diskus) progesterone micronized 200 mg 200 mg PO DAILY 04/14/22 04/14/22 capsule Allergies Allergy/AdvReac Type Severity Reaction Status Date / Time naproxen Allergy Unknown Verified 04/14/22 18:34 Sulfa (Sulfonamide Allergy Unknown Verified 04/14/22 18:34 Antibiotics) tramadol Allergy Unknown Verified 04/14/22 18:34 IV DYE Allergy Unknown Uncoded 06/05/21 14:48 Review of Systems Review of Systems: All systems reviewed & are unremarkable except as noted in HPI and below Constitutional: Constitutional: Denies chills PMFSH Past Medical History Medical History Asthma COPD (chronic obstructive pulmonary disease) DDD (degenerative disc disease) Depression GERD (gastroesophageal reflux disease) SI (sacroiliac) joint dysfunction Social History Social History Smoking status: Current some day smoker Tobacco type: e-cigarettes/vaping Alcohol intake: never Substance use: never Substance use type: does not use Spiritual care concerns: No Exam Const: General: healthy appearing, no acute distress and alert Nutritional Appearance: well nourished Orientation/consciousness: patient oriented x3 Limitations: no limitations HENMT: Head: normal to inspection Ears: external ears normal Face/Nose/Sinus: Normal external nose present Face and sinus: normal facial exam Mouth: Yes moist mucous membranes Eyes: Conjunctivae: conjunctivae normal Pupils: Equal, round and reactive pupils present EOM: EOMs intact bilaterally Neck: Neck: normal visual inspection Resp: Effort & Inspection: normal respiratory effort Auscultation: clear to auscultation bilaterally Cardio: Rate: regular rate Rhythm: regular rhythm GI: GI Palp: Yes Soft to palpation, No Tenderness to palpation present (GI) and No Guarding due to palpation present (GI) Auscultation: normal bowel sounds Back/Spine/Pelvis: Back: CVA tenderness ( mild on the left) Skin: General skin exam: normal color Rashes: no rashes Wounds: no wounds Neuro: General: patient oriented x3, moves all extremities, no focal motor deficits and CN's II-XI intact bilaterally Speech: normal speech Gait exam (Neuro): Normal gait present Extrem: General: normal to inspection and no clubbing, cyanosis or edema Psych: Appearance: grossly normal and well kempt Mental Status: mental status grossly normal Affect: normal affect Attitude: cooperative Course Vital Signs Vital signs: Vital Signs Temperature 36.9 C 04/14/22 18:20 Pulse Rate
[2022-04-14 18:37] LABS: Add Urine Microscopic? YES; Appearance Urine Cloudy (Clear); Bilirubin Urine Negative (Negative); Blood Urine 3+ (Negative); Color Urine Light Yellow (Yellow); Glucose Urine UA Negative (Negative); Ketones Urine Negative (Negative); Leukocyte Esterase Ur Trace LEU/UL (Negative); Nitrate Urine Negative (Negative); Protein Urine Negative (Negative); Urobilinogen Urine 0.2 mg/dL (0.2-1.0)
[2022-04-14 18:41] VITALS: BP 165/95; PULSE 87; RESP 18; TEMP 36.9; O2SAT 100
[2022-04-14 18:43] LABS: Bacteria Urine Trace /hpf; RBC Urine >75 /hpf (0-2); Squamous Epithelial Cell Urine Few /hpf (Few); WBC Urine 0-3 /hpf (0-3)
[2022-04-14 19:09] LABS: Basophils Absolute Auto 0.03 K/mm3 (0.00-0.10); Basophils Percent Auto 0.3 % (0.0-1.0); Eosinophils Absolute Auto 0.12 K/mm3 (0.02-0.50); Eosinophils Percent Auto 1.3 % (1.0-6.0); Hematocrit 39.8 % (35.0-49.0); Hemoglobin 13.7 g/dL (12.0-15.0); Immature Granulocyte Absolute 0.05 K/mm3 (0.00-0.00); Immature Granulocyte Percent A 0.6 % (0.0-0.0); Lymphocytes Absolute Auto 3.97 K/mm3 (1.10-4.50); Lymphocytes Percent Auto 44.7 % (18.0-42.0); Mean Corpuscular HGB Conc 34.4 g/dL (32.0-36.0); Mean Corpuscular Hemoglobin 31.9 pg (27.0-31.0); Mean Corpuscular Volume 92.6 fL (78.0-102.0); Mean Platelet Volume 9.4 fl (9.2-11.8); Monocytes Absolute Auto 0.66 K/mm3 (0.10-0.90); Monocytes Percent Auto 7.4 % (2.0-11.0); Neutrophils Absolute Auto 4.1 K/mm3 (1.7-7.2); Neutrophils Percent Auto 45.7 % (50.0-70.0); Platelet Count Result 309 K/mm3 (150-420); White Blood Count 8.9 K/mm3 (4.8-10.8)
[2022-04-14 19:25] LABS: Alanine Aminotransferase 55 U/L (14-59); Albumin Level 3.7 g/dL (3.4-5.0); Alkaline Phosphatase 52 U/L (46-116); Anion Gap 8 mmol/L (8-16); Aspartate Amino Transferase 21 U/L (15-37); Bilirubin,Total 0.5 mg/dL (0.00-1.00); Blood Urea Nitrogen 13 mg/dL (7-18); CRP < 0.5 mg/dL (0.0-0.9); Calcium 8.7 mg/dL (8.5-10.1); Carbon Dioxide 27 mmol/L (21-32); Chloride 104 mmol/L (98-108); Estimated CRCL calculation 90 ml/min; Estimated Glomerular Filt Rate > 60; Glucose 117 mg/dL (70-99); Osmolality Calculated 289 mOsm/kg (285-295); Potassium 3.5 mmol/L (3.5-5.1); Sodium 139 mmol/L (136-145)
[2022-04-14] MEDS: TAMSULOSIN HCL 0.4 MG CAPSULE PO (20:01)
[2022-04-14 20:03] VITALS: BP 122/82; PULSE 88; RESP 20; TEMP 36.8; O2SAT 99
== END 2022-04-14 20:05 | disposition home or self-care (01) ==
PROVIDERS: Emergency Provider Emergency Medicine; PCP Family Medicine
DX: R31.0 Gross hematuria (principal); J44.9 Chronic obstructive pulmonary disease, unspecified; F17.290 Nicotine dependence, other tobacco product, uncomplicated
CPT/HCPCS: 36415; 74176; 80053; 81001; 85025; 86140; 99284; A9270

== ENCOUNTER 2022-04-16 14:48 | Outpatient (CLI) | payer MEDICARE, MEDICAID, SELFPAY ==
--- NOTE | 2022-04-16 15:52 | ECG_ITS ---
Measurements Intervals [place] Rate: 92 P: 62 IA: 174 QRS: 134 QRSD: 99 T: 74 QT: 381 QTc: 473 Interpretive Statements SINUS RHYTHM RIGHT AXIS DEVIATION INCOMPLETE RIGHT BUNDLE BRANCH BLOCK MINIMAL Q WAVES- INFERIOR LEADS BORDERLINE T WAVE ABNORMALITY- ANTERIOR LEADS BORDERLINE ECG NO PREVIOUS ECG AVAILABLE FOR COMPARISON Electronically Signed On 04-16-2022 16:10:18 INVASIVE CARDIOVASCULAR TECHNOLOGIST by Nguyễn Espinal D.O.
== END 2022-04-16 14:49 | disposition home or self-care (01) ==
LOC: CHSLAB 14:50
PROVIDERS: PCP Family Medicine; Visit Provider Family Medicine
DX: R31.0 Gross hematuria (principal); I10 Essential (primary) hypertension; I45.10 Unspecified right bundle-branch block; Z12.4 Encounter for screening for malignant neoplasm of cervix
CPT/HCPCS: 88112; 88175; 93005; G0145

== ENCOUNTER 2022-04-24 09:13 | Outpatient (CLI) | payer MEDICARE, MEDICAID, SELFPAY ==
[2022-04-24 09:51] LABS: Anion Gap 11 mmol/L (8-16); Blood Urea Nitrogen 11 mg/dL (7-18); Calcium 9.1 mg/dL (8.5-10.1); Carbon Dioxide 27 mmol/L (21-32); Chloride 103 mmol/L (98-108); Estimated Glomerular Filt Rate > 60; Glucose 123 mg/dL (70-99); Osmolality Calculated 292 mOsm/kg (285-295); Potassium 3.6 mmol/L (3.5-5.1); Sodium 141 mmol/L (136-145)
== END 2022-04-24 09:14 | disposition home or self-care (01) ==
LOC: CHSLAB 09:16
PROVIDERS: PCP Family Medicine; Visit Provider Family Medicine
DX: I10 Essential (primary) hypertension (principal)
CPT/HCPCS: 36415; 80048

== ENCOUNTER 2022-05-04 09:38 | Outpatient (CLI) | payer MEDICARE, MEDICAID, SELFPAY ==
--- NOTE | 2022-05-04 11:00 | EST_ITS ---
Patient Info Name: Devika Nickerson Age: 46 years : 1975 Gender: Female Ht: 64 in Wt: 190 lbs BSA: 2.01 m2 Technical Quality: Good Exam Date: 05/04/2022 11:03 AM Exam Location: [facility] [employer] Patient Status: Outpatient Admit Date: 05/04/2022 Staff Ordering Physician: Maury Smith MD Attending Provider: Maury Smith MD Exam Type: CA stress dorian w NM Study Info A regadenoson stress test was performed. History/Risk Factors Family History: Coronary Artery Disease Summary 1. 1. Negative lexiscan stress test for ischemic ST changes by ECG criteria. 2. 2. Stable hemodynamics throughout the test. 3. 3. Nuclear scan to follow and will be reported separately. Please correlate with it. Protocol: LEXISCAN Stress ECG Details Stage: REST Duration (min): 1 min : 4 sec HR (bpm): 89 SBP (mmHg): --- DBP (mmHg): --- Stage: REST Duration (min): 3 min : 17 sec HR (bpm): 86 SBP (mmHg): 101 DBP (mmHg): 58 Stage: STAGE 1 Duration (min): 0 min : 17 sec HR (bpm): 80 SBP (mmHg): 101 DBP (mmHg): 58 Stage: RECOVERY Duration (min): 0 min : 42 sec HR (bpm): 101 SBP (mmHg): 101 DBP (mmHg): 58 Stage: RECOVERY Duration (min): 1 min : 42 sec HR (bpm): 103 SBP (mmHg): 136 DBP (mmHg): 62 Stage: RECOVERY Duration (min): 2 min : 42 sec HR (bpm): 99 SBP (mmHg): 125 DBP (mmHg): 61 Stage: RECOVERY Duration (min): 3 min : 42 sec HR (bpm): 96 SBP (mmHg): 125 DBP (mmHg): 61 Stage: RECOVERY Duration (min): 4 min : 42 sec HR (bpm): 99 SBP (mmHg): 125 DBP (mmHg): 61 Stage: RECOVERY Duration (min): 5 min : 42 sec HR (bpm): 89 SBP (mmHg): 117 DBP (mmHg): 54 Stage: RECOVERY Duration (min): 6 min : 22 sec HR (bpm): 91 SBP (mmHg): 117 DBP (mmHg): 54 Rest HR: 86 bpm Peak HR: 103 bpm Rest Sys BP: 101 mmHg Peak Sys BP: 136 mmHg Max Pred HR: 173 bpm % Max Pred HR: 60 % Target HR: 147 bpm Max RPP: 14,008 bpm*mmHg Termination Reason: Completed Protocol Cardiac Symptoms: None Total Time: 0 min : 17 sec Rest Thomas BP: 58 mmHg Peak Thomas BP: 62 mmHg Total Dose: 0.4 mg Resting ECG Normal sinus rhythm, IRBBB, borderline T wave in ant/high lat leads. Stress ECG No abnormal ST/T wave changes. Arrhythmias None. Report Signatures
--- NOTE | 2022-05-04 12:51 | WPDCARIOSTRE ---
Nuclear Stress Test INDICATIONS Indications: Chest pain PROCEDURE Procedure Performed: Myocardial Perf Spect-Multi Procedure: Patient underwent a lexiscan stress test and immediately was injected with 33 mCi of cardiolyte. Multiple tomographic images were obtained. These are of good quality. There is no perfusion defect during stress imaging. A separate resting images were obtained after patient was injected with 11 mCi of cardiolyte. Multiple tomographic images were obtained. These are of good quality. There is no perfusion defect during rest imaging. CONCLUSION Conclusion: 1. Normal myocardial perfusion imaging demonstrating no perfusion defects during stress or rest imaging. 2. No evidence of reversible ischemia. 3. Left ventriculogram demonstrates normal measured ejection fraction of 77%. No wall motion abnormalities. 4. TID 0.0.89 is normal.
== END 2022-05-04 09:39 | disposition home or self-care (01) ==
PROVIDERS: PCP Family Medicine; Visit Provider Family Medicine
DX: I10 Essential (primary) hypertension (principal); R94.31 Abnormal electrocardiogram [ECG] [EKG]
CPT/HCPCS: 78452; 93017; A9502; J2785

== ENCOUNTER 2022-05-18 08:21 | Outpatient (CLI) | payer MEDICARE, SELFPAY ==
[2022-05-18 08:36] LABS: Basophils Absolute Auto 0.04 K/mm3 (0.00-0.10); Basophils Percent Auto 0.5 % (0.0-1.0); Eosinophils Absolute Auto 0.09 K/mm3 (0.02-0.50); Eosinophils Percent Auto 1.2 % (1.0-6.0); Hematocrit 41.4 % (35.0-49.0); Hemoglobin 14.2 g/dL (12.0-15.0); Immature Granulocyte Absolute 0.06 K/mm3 (0.00-0.00); Immature Granulocyte Percent A 0.8 % (0.0-0.0); Lymphocytes Absolute Auto 3.23 K/mm3 (1.10-4.50); Lymphocytes Percent Auto 41.5 % (18.0-42.0); Mean Corpuscular HGB Conc 34.3 g/dL (32.0-36.0); Mean Corpuscular Hemoglobin 31.1 pg (27.0-31.0); Mean Corpuscular Volume 90.8 fL (78.0-102.0); Monocytes Absolute Auto 0.57 K/mm3 (0.10-0.90); Monocytes Percent Auto 7.3 % (2.0-11.0); Neutrophils Absolute Auto 3.8 K/mm3 (1.7-7.2); Neutrophils Percent Auto 48.7 % (50.0-70.0); Platelet Count Result 303 K/mm3 (150-420); Red Blood Count 4.56 M/mm3 (4.20-5.40); White Blood Count 7.8 K/mm3 (4.8-10.8)
[2022-05-18 08:37] LABS: Add Urine Microscopic? YES; Appearance Urine Clear (Clear); Bilirubin Urine Negative (Negative); Blood Urine 3+ (Negative); Color Urine Light Yellow (Yellow); Glucose Urine UA Negative (Negative); Ketones Urine Negative (Negative); Leukocyte Esterase Ur Trace (Negative); Nitrate Urine Negative (Negative); Protein Urine Negative (Negative); Urobilinogen Urine 0.2 mg/dL (0.2-1.0)
[2022-05-18 08:43] LABS: Bacteria Urine Trace /hpf; Squamous Epithelial Cell Urine Few /hpf (Few); WBC Urine 0-3 /hpf (0-3)
[2022-05-18 09:42] LABS: Alanine Aminotransferase 77 U/L (14-59); Albumin Level 3.8 g/dL (3.4-5.0); Alkaline Phosphatase 54 U/L (46-116); Amylase 18 U/L (25-115); Anion Gap 7 mmol/L (8-16); Aspartate Amino Transferase 30 U/L (15-37); Bilirubin,Total 0.8 mg/dL (0.00-1.00); Blood Urea Nitrogen 12 mg/dL (7-18); Carbon Dioxide 30 mmol/L (21-32); Chloride 104 mmol/L (98-108); Estimated Glomerular Filt Rate > 60; Glucose 104 mg/dL (70-99); Lipase 33 U/L (16-77); Osmolality Calculated 291 mOsm/kg (285-295); Sodium 141 mmol/L (136-145); Total Protein 7.5 g/dL (6.4-8.2)
== END 2022-05-18 08:22 | disposition home or self-care (01) ==
LOC: CHSLAB 08:22
PROVIDERS: PCP Family Medicine; Visit Provider Family Medicine
DX: R31.0 Gross hematuria (principal); I10 Essential (primary) hypertension; R82.90 Unspecified abnormal findings in urine
CPT/HCPCS: 36415; 80053; 81001; 82150; 83690; 85025; 87086

== ENCOUNTER 2022-05-28 07:57 | Outpatient (CLI) | payer MEDICARE, MEDICAID, SELFPAY ==
--- NOTE | ~2022-05-28 | CT_ITS ---
EXAMINATION: CT abdomen pelvis wo/w con DATE: 05/28/2022 09:10 INDICATION: Gross hematuria TECHNIQUE: Computed tomography (CT) of the abdomen and pelvis was performed without and with 130 cc O mnipaque 350 intravenous contrast. The dose-length product was 1721.55 mGy-cm. Automated exposure con trol and iterative reconstruction technique were employed. COMPARISON: CT dated 04/14/2012. FINDINGS: Lung bases are unremarkable. Heart size normal. No significant pleural or pericardial effus ion. Punctate nonobstructing bilateral renal stones. No ureteral stones or hydronephrosis. Status pos t cholecystectomy. Fatty infiltration of the liver. There are small hypodense lesions of both kidneys , most likely benign cysts. The spleen, pancreas, adrenal glands are unremarkable. Ureters are normal in course and caliber. There is a focal bladder wall mass along the anterior, inferior margin of the bladder on the left, suspicious for transitional cell carcinoma. There is a fat-containing left ingu inal hernia. Nonobstructive bowel pattern. Normal appendix. There is a lipoma of the left gluteal mus cles. No free air or free fluid. Mild thoracolumbar spondylosis. No significant vascular abnormality. Retroaortic left renal vein. No lymphadenopathy. IMPRESSION: 1. Irregular shaped bladder wall mass along the anterior inferior margin of the bladder on the right, suspicious for transitional cell carcinoma. Recommend correlation with cystoscopy. 2: Punctate nonobstructing bilateral renal stones. 3: Fat-containing left inguinal hernia. Reviewed, dictated and finalized at location L. FACTURING TECHNOLOGIST IMPRESSION: 1. Irregular shaped bladder wall mass along the anterior inferior margin of the bladder on the right, suspicious for transitional cell carcinoma. Recommend co rrelation with cystoscopy. 2: Punctate nonobstructing bilateral renal stones. 3: Fat-containing left inguinal hernia.
--- NOTE | ~2022-05-28 | XR_ITS ---
XR abdomen/kub 1V 05/28/2022 09:06 INDICATION: Gross hematuria TECHNIQUE: KUB COMPARISON: None FINDINGS: Bowel gas pattern is normal. There are cholecystectomy clips. There is no evidence of free air, mass, organomegaly, ascites or obstruction. No abnormal calculi are seen. The bones appear int act. IMPRESSION: 1: No acute abdominal abnormality identified. Reviewed, dictated and finalized at location L. RE CONSULTANT
== END 2022-05-28 07:58 | disposition home or self-care (01) ==
LOC: CHSIMG 07:59
PROVIDERS: PCP Family Medicine; Visit Provider Nurse Practitioner Family
DX: R31.0 Gross hematuria (principal); N32.89 Other specified disorders of bladder; N20.0 Calculus of kidney; K40.90 Unilateral inguinal hernia, without obstruction or gangrene, not specified as recurrent
CPT/HCPCS: 74018; 74178; Q9967

== ENCOUNTER 2022-07-06 11:52 | Outpatient (CLI) | payer MEDICARE, MEDICAID, SELFPAY ==
[2022-07-06 12:23] LABS: Partial Thromboplastin Time 25.9 SEC (23.90-30.70); Prothrombin Time 10.9 Seconds (9.50-12.10)
== END 2022-07-06 11:53 | disposition home or self-care (01) ==
LOC: CHSLAB 11:54
PROVIDERS: PCP Family Medicine; Visit Provider Surgery
DX: C67.9 Malignant neoplasm of bladder, unspecified (principal); R31.9 Hematuria, unspecified
CPT/HCPCS: 36415; 85610; 85730

== ENCOUNTER 2022-07-08 02:01 | Day surgery (SDC) | payer MEDICARE, MEDICAID, SELFPAY ==
[2022-07-03 08:48] VITALS: BMI 32.3
--- NOTE | 2022-07-03 08:55 | PC.NURSE ---
Report to the Outpatient Waiting Room, entrance under the green pavilion located off [facility], at time 1130 on date 07/08/22. Planned Procedure Time: 1330. Time changes happen often and if your time is changed the preop area will call you the afternoon before. - You and your visitor will be asked to self-screen and do not enter if you have any COVID symptoms. - A mask is optional within the hospital at this time. Patients may have clear liquids (water, carbonated beverages, clear teas, apple juice) until 3 hours prior to surgery with a maximum of 20 ounces. - No food from midnight until time of surgery Take the following medications with a SIP of water the morning of surgery: INHALERS DO NOT STOP ANY OF YOUR OTHER PRESCRIPTION MEDICATIONS PRIOR TO SURGERY EXCEPT THE FOLLOWING Medications to discontinue per physician: N/A Date to take last dose: N/A Please no make-up, nail [place] islander, hairspray, perfume, deodorant, or body powder the day of surgery. No jewelry (including any body piercings) or valuables the day of surgery, leave them at home. Please take a shower or bath the night before, or the morning of, surgery with an antibacterial soap. Wear comfortable, loose fitting clothing. - Jewelry must be removed prior to entering the operating room. Rings and piercings that are not removed may be cut off. - The hospital will not accept responsibility for valuables. - Please leave all valuables, including medications, at home the day of surgery. If you are going home after surgery, a licensed tour bus driver must drive you home. - NO public transportation without another adult if you receive anesthesia. - We recommend that an adult stay with you for 24 hours following discharge. - We also recommend that you do not drive, make important decision, drink alcoholic beverages, or take any drugs that were not prescribed by your health care provider for at least 24 hours after your discharge time. Follow any additional instructions given to you from your surgeon. If you or anyone in your household have experienced Covid symptoms in the past week, please notify your surgeon or the nurse liaison at the phone number below for possible testing. Telephone instructions given to PT - CODY ROBISON and asked if any additional questions and then verbalized understanding. Patient advised to call surgeon office or pre surgery nurse liaison [phone] if any additional questions.
--- NOTE | 2022-07-07 14:29 | PM.SD2 ---
Same Day Admit/Disch: HPI History of Present Illness Chief complaint: malignant neoplasm urinary bladder Narrative: Devika Nickerson is a 46 year old female who developed hematuria and dysuria. 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 She is to have neoadjuvant chemotherapy prior to resection. She is taken to surgery now for placement of a Port-A-Cath for chemotherapy administration. [facility] Past Medical History Medical History Asthma COPD (chronic obstructive pulmonary disease) DDD (degenerative disc disease) Depression GERD (gastroesophageal reflux disease) SI (sacroiliac) joint dysfunction Social History Social History Smoking packs per day: 0.75 Smoking cigarettes per day: 15.0 Years smoked: 25 Smoking pack-years: 18.75 Smoking status: Former smoker Tobacco type: cigarettes and e-cigarettes/vaping Smoking end date: 03/29/19 Additional smoking assessment comments: CURRENTLY VAPING Alcohol intake: never Substance use: never Substance use type: does not use Living arrangements: with family Spiritual care concerns: No Same Day Admit/Disch: Med Pre-admit Medications Home Medications Medication Instructions Recorded Confirmed Type cyclobenzaprine 10 mg tablet 10 mg PO HS PRN Pain 11/12/19 07/03/22 History estradiol 0.5 mg tablet 0.5 mg PO DAILY 04/14/22 07/03/22 History famotidine 40 mg tablet 40 mg PO DAILY 04/14/22 07/03/22 History fluticasone propionate 100 2 inh inhalation DAILY 04/14/22 07/03/22 History mcg/actuation blister powder for inhalation (Flovent Diskus) progesterone micronized 200 mg 200 mg PO DAILY 04/14/22 07/03/22 History capsule losartan 50 mg-hydrochlorothiazide 1 tablet PO DAILY 04/30/22 07/03/22 History 12.5 mg tablet albuterol sulfate 90 mcg/actuation 1 inh inhalation QID PRN 07/03/22 07/03/22 History aerosol inhaler Bronchospasm lorazepam 0.5 mg tablet 1 mg PO TID PRN Anxiety 07/03/22 07/03/22 History ibuprofen 600 mg tablet 600 mg PO Q6H PRN pain #14 tabs 07/08/22 Rx oxycodone-acetaminophen 5 mg-325 1 - 2 tablet PO Q6H PRN pain #10 07/08/22 Rx mg tablet (Percocet) tabs Exam Const: General: comfortable, no acute distress, alert and awake HENMT: Head: normocephalic and atraumatic Mouth: Yes Normal oral and palatal mucosa present Eyes: Conjunctivae: conjunctivae normal Pupils: Equal, round and reactive pupils present EOM: EOMs intact bilaterally Neck: Neck: normal visual inspection, no lymphadenopathy and nontender Resp: Effort & Inspection: normal respiratory effort Auscultation: clear to auscultation bilaterally Cardio: Rate: regular rate Rhythm: regular rhythm Heart sounds: no gallops, no murmurs and no rubs GI: Inspection: non-distended GI Palp: Yes Soft to palpation, No Tenderness to palpation present (GI), No Hepatomegaly present and No Splenomegaly present Skin: Lesions: no lesions Rashes: no rashes Neuro: General: no focal motor deficits and CN's II-XI intact bilaterally Cranial nerves: Yes Equal, round and reactive pupils present, Yes Bilaterally intact EOM present, Yes facial symmetry and Yes Midline tongue present Speech: normal speech Motor exam (neuro): 5/5 motor strength present throughout and Motor abnormalities not present Extrem: General: no clubbing, cyanosis or edema and edema Psych: Affect: normal affect Thought process: Normal thought process present Insight: Good insight present (Psych) DS: Summary Time Spent with Patient Time attestation: Total time spent providing and/or coordinating discharge services: DS: Admitting Diagnosis Discharge Date 07/08/2022 Admitting Diagnosis 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 Inadequat
--- NOTE | ~2022-07-08 | XR_ITS ---
EXAMINATION: XR fl guide central line place DATE: 07/08/2022 12:22 INDICATION: Port placement. TECHNIQUE: A single intraoperative fluoroscopic view of the chest was obtained. I was not present. Fl uoroscopy exposure time was 82 seconds. COMPARISON: Chest single view 07/08/2022 FINDINGS: There is a left subclavian port with tip at the superior cavoatrial junction. IMPRESSION: 1. Port tip at the superior cavoatrial junction. Reviewed, dictated and finalized at location A.
--- NOTE | ~2022-07-08 | XR_ITS ---
XR chest port-a-cath/central 07/08/2022 12:46 Indication: Insertion of left-sided portacatheter Procedure: AP portable chest Comparison: 06/05/2021 Findings: There are bilateral interstitial infiltrates of the mid and lower lungs. Portacatheter tip in the condyle aspect of the SVC. No pleural effusion or pneumothorax. Impression: 1: Bilateral interstitial infiltrates which may represent mild edema or pneumonia. Reviewed, dictated and finalized at location B. Impression: 1: Bilateral interstitial infiltrates which may represent mild edema or pneumon ia.
--- NOTE | 2022-07-08 08:25 | WPDANESEPPF ---
Anes - Initial Pre Proc Eval Procedure: Operation Date: 07/08/22 12:00 Proposed Procedures p Insertion Yessy Cath - Nitin Hollingsworth MD Date/Time: 07/08/22 08:25 Surgeon: Nitin Hollingsworth MD Pre Op Diagnosis: malignant neoplasm urinary bladder Patient Data Age: 46 Gender: F Height: 1.63 m Weight: 85.3 kg Allergies Allergy/AdvReac Type Severity Reaction Status Date / Time naproxen Allergy Unknown Hives Verified 07/08/22 09:45 Sulfa (Sulfonamide Allergy Unknown Hives Verified 07/08/22 09:45 Antibiotics) tramadol AdvReac Unknown Hypotension Verified 07/08/22 09:45 IV DYE Allergy Intermediate Hives Uncoded 07/08/22 09:45 Home Medications Medication Instructions Recorded Confirmed Type cyclobenzaprine 10 mg tablet 10 mg PO HS PRN Pain 11/12/19 07/03/22 History hydrocodone 5 mg-acetaminophen 325 1 tablet PO Q8H PRN pain #7 tabs 03/28/22 07/03/22 Rx mg tablet estradiol 0.5 mg tablet 0.5 mg PO DAILY 04/14/22 07/03/22 History famotidine 40 mg tablet 40 mg PO DAILY 04/14/22 07/03/22 History fluticasone propionate 100 2 inh inhalation DAILY 04/14/22 07/03/22 History mcg/actuation blister powder for inhalation (Flovent Diskus) progesterone micronized 200 mg 200 mg PO DAILY 04/14/22 07/03/22 History capsule losartan 50 mg-hydrochlorothiazide 1 tablet PO DAILY 04/30/22 07/03/22 History 12.5 mg tablet albuterol sulfate 90 mcg/actuation 1 inh inhalation QID PRN 07/03/22 07/03/22 History aerosol inhaler Bronchospasm lorazepam 0.5 mg tablet 1 mg PO TID PRN Anxiety 07/03/22 07/03/22 History Patient hx anesthesia problems: none Family hx anesthesia problems: none Results Review: All pre-operative results and documents have been reviewed as part of the pre-operative evaluation. [facility] Past Medical History Medical History Asthma COPD (chronic obstructive pulmonary disease) DDD (degenerative disc disease) Depression GERD (gastroesophageal reflux disease) SI (sacroiliac) joint dysfunction Social History Social History Smoking packs per day: 0.75 Smoking cigarettes per day: 15.0 Years smoked: 25 Smoking pack-years: 18.75 Smoking status: Former smoker Tobacco type: cigarettes and e-cigarettes/vaping Smoking end date: 03/29/19 Additional smoking assessment comments: CURRENTLY VAPING Alcohol intake: never Substance use: never Substance use type: does not use Living arrangements: with family Spiritual care concerns: No Anes - Eval Final PreProcedure Day of Procedure 07/08/22 08:25 Patient weight: obese Heart: regular rate and rhythm Lungs: clear to auscultation Airway: Mallampati scale class II Neurological: alert and oriented Last oral intake: >/= 8 hours ASA classification: III Emergent: no Anesthetic plan: proceed Anesthesia type and monitoring: general GIVS and standard monitoring Results Review: All pre-operative results and documents have been reviewed as part of the pre-operative evaluation. Informed Consent: The patient's anesthetic plan and its attendant risks and benefits were discussed with the patient/family/POA. Questions were solicited and answers provided to the satisfaction of the patient/family/POA.
[2022-07-08 09:25] VITALS: BMI 32.3
[2022-07-08 09:30] VITALS: BP 120/83; PULSE 87; RESP 16; TEMP 36.7; O2SAT 100
[2022-07-08] MEDS: LACTATED RINGERS 1,000 ML 30 ML IV CONT (09:50)
[2022-07-08] MEDS: KETOROLAC 15 MG/ML VIAL (*BKC) IV PUSH (10:00)
--- NOTE | 2022-07-08 10:01 | WPDHPUPDATE1 ---
History and Physical Update Update Date/Time: 07/08/22 10:01 History and Physical has been reviewed, including an updated exam of the patient. There are NO changes in the patient's condition. Risks, benefits, and alternatives have been discussed and questions answered. Patient agrees to proceed with procedure.
[2022-07-08] MEDS: ceFAZolin 2 GM/D5W 50 ML 2 GM/50 ML BAG IVPB (11:37)
[2022-07-08] MEDS: BUPIVACAINE/EPINEPHRINE 0.5% 50 ML VIAL 30 ML INFILTRATE (11:55)
[2022-07-08] MEDS: HEPARIN SODIUM 5,000 UNITS/ML VIAL 1000 UNITS IRRIGATION (11:56)
[2022-07-08 12:34] VITALS: BP 116/89; PULSE 105; RESP 12; O2SAT 100
--- NOTE | 2022-07-08 12:45 | P.OP_ITS ---
Procedure Note - Detailed Date of Procedure 07/08/22 Pre-op Diagnosis malignant neoplasm urinary bladder, inadequate venous access Post-op Diagnosis Same Procedure Performed Placement left subclavian vortex Port-A-Cath under fluoroscopy Surgeon Nitin Hollingsworth MD Biological Technician Latasha Lomax KEY ACCOUNT REPRESENTATIVE Anesthesia MAC and Local (0.5% bupivacaine with epinephrine) Indications Patient is a 46-year-old woman with invasive urinary bladder cancer. She is having neoadjuvant chemotherapy prior to bladder resection. She is taken to the operating room today for placement of Port-A-Cath for chemotherapy administration. Findings Port-A-Cath tip is in the distal SVC right atrial junction. Description of Procedure Patient was taken to surgery and IV sedation was administered. The left subclavian left neck areas were prepped and draped. A the proposed incision was marked on the skin under the left clavicle. Local was infiltrated into the skin and the deeper subcutaneous tissues. Incision was made and dissection was carried down through the subcutaneous down to the pectoralis major fascia. A subcutaneous pocket was created just above the fascia. Additional local was infiltrated into the pocket and under the left clavicle. The left subclavian vein was cannulated with single puncture. The guidewire passed readily into the superior vena cava. C-arm fluoroscopy was used to confirm that the guidewire was in the SVC. I then used fluoroscopy to measure the length of Port-A-Cath that would be needed. It was cut to the appropriate length. I then passed the introducer and sheath over the guidewire and into the superior vena cava. The introducer and guidewire were removed. The Port-A-Cath was passed through the sheath and into the superior vena cava. The sheath was then removed. I checked the position of the Port-A-Cath again and it looked good with the tip in the distal SVC right atrial junction. The Port-A-Cath aspirated blood easily and flushed well with heparin. I sutured the Port-A-Cath to the pectoralis major fascia with 3-0 silk suture. I recheck did again. It aspirated blood and flushed nicely as it did the 1st time. I then closed the wounds with layered closure of running 2-0 Vicryl suture. The skin was closed with subcuticular 4-0 Monocryl skin suture. The wound was dressed with Exofin surgical adhesive. The patient was awakened and taken to outpatient surgery in good condition. Sponge and needle counts were correct x2. Implants Vortex Port-A-Cath Estimated Blood Loss -5.0 Drains No Packing No Pathology None sent Complications No immediate complications Condition Stable Disposition Same day [facility] Billing Surgery - Charge Forward: Surgery Billing (Placement Port-A-Cath under fluoroscopy)
[2022-07-08 13:04] VITALS: BP 109/86; PULSE 86; RESP 14; O2SAT 100
[2022-07-08 13:30] VITALS: BP 123/85; PULSE 77; RESP 14
== END 2022-07-08 13:46 | disposition home or self-care (01) ==
PROVIDERS: PCP Family Medicine; Visit Provider Surgery
PROC: (CPT 36561; principal; 2022-07-08 12:00)
DX: C67.9 Malignant neoplasm of bladder, unspecified (principal); J44.9 Chronic obstructive pulmonary disease, unspecified; K21.9 Gastro-esophageal reflux disease without esophagitis; F32.A Depression, unspecified; F17.290 Nicotine dependence, other tobacco product, uncomplicated; E66.9 Obesity, unspecified; Z68.32 Body mass index [BMI] 32.0-32.9, adult; Z79.891 Long term (current) use of opiate analgesic; Z79.51 Long term (current) use of inhaled steroids
CPT/HCPCS: 36561; 77001; C1788; J0690; J1100; J1644; J1885; J2250; J2405; J2704; J3010; J7030; J7120

== ENCOUNTER 2022-12-15 09:13 | Emergency (ER) | payer MEDICARE, MEDICAID, SELFPAY ==
--- NOTE | ~2022-12-15 | XR_ITS ---
EXAMINATION: XR chest 2V DATE: 12/15/2022 09:27 INDICATION: Possible aspirated foreign body, cough TECHNIQUE: PA and lateral views of the chest are obtained. COMPARISON: 07/08/2022 FINDINGS: The lungs are free of acute opacities. No definite aspirated foreign body is identified. A left subclavian Port-A-Cath ends with its tip in the superior vena cava. No pleural effusion or pneum othorax. The cardiomediastinal silhouette is normal. There is mild thoracic spondylosis. Cholecystect isi clips are noted. IMPRESSION: 1. No acute cardiopulmonary abnormality. No definite aspirated foreign body identified. Reviewed, dictated and finalized at location L. IMPRESSION: 1. No acute cardiopulmonary abnormality. No definite aspirated foreign body rachele ntified.
[2022-12-15 09:15] VITALS: BP 140/94; PULSE 125; RESP 32; TEMP 36.2; O2SAT 94
--- NOTE | 2022-12-15 09:16 | ED.SOB ---
HPI - SOB/Dyspnea General Chief Complaint: Skin/Abscess/Foreign Body Stated Complaint: throat obstruction Time Seen by Provider: 12/15/22 09:15 History of Present Illness HPI Narrative: Pt inhaled her 1/2 potassium pill when trying to swallow it. Pt is coughing a ton. Pt denies other symptoms but can't seen to cough it up. Related Data Home Medications Medication Instructions Recorded Confirmed cyclobenzaprine 10 mg tablet 10 mg PO HS PRN Pain 11/12/19 12/15/22 estradiol 0.5 mg tablet 0.5 mg PO DAILY 04/14/22 12/15/22 famotidine 40 mg tablet 40 mg PO DAILY 04/14/22 12/15/22 fluticasone propionate 100 2 inh inhalation DAILY 04/14/22 12/15/22 mcg/actuation blister powder for inhalation (Flovent Diskus) progesterone micronized 200 mg 200 mg PO DAILY 04/14/22 12/15/22 capsule losartan 50 mg-hydrochlorothiazide 1 tablet PO DAILY 04/30/22 12/15/22 12.5 mg tablet albuterol sulfate 90 mcg/actuation 1 inh inhalation QID PRN 07/03/22 12/15/22 aerosol inhaler Bronchospasm lorazepam 0.5 mg tablet 1 mg PO TID PRN Anxiety 07/03/22 12/15/22 potassium chloride 20 mEq 20 meq PO BID 09/24/22 12/15/22 tablet,extended release Allergies Allergy/AdvReac Type Severity Reaction Status Date / Time naproxen Allergy Unknown Hives Verified 12/15/22 09:21 Sulfa (Sulfonamide Allergy Unknown Hives Verified 12/15/22 09:21 Antibiotics) tramadol AdvReac Unknown Hypotension Verified 12/15/22 09:21 IV DYE Allergy Intermediate Hives Uncoded 11/19/22 12:39 Review of Systems Review of Systems: All systems reviewed & are unremarkable except as noted in HPI and below PMFSH Past Medical History Medical History Asthma COPD (chronic obstructive pulmonary disease) DDD (degenerative disc disease) Depression GERD (gastroesophageal reflux disease) SI (sacroiliac) joint dysfunction Social History Social History Smoking packs per day: 0.5 Smoking cigarettes per day: 10.0 Years smoked: 25 Smoking pack-years: 12.50 Smoking status: Former smoker Tobacco type: cigarettes and e-cigarettes/vaping Smoking end date: 03/29/19 Additional smoking assessment comments: CURRENTLY VAPING Alcohol intake: never Substance use: never Substance use type: does not use Living arrangements: with family Spiritual care concerns: No Exam Const: General: healthy appearing and no acute distress Nutritional Appearance: well nourished Orientation/consciousness: patient oriented x3 Limitations: no limitations HENMT: Head: normal to inspection Throat: posterior oropharynx normal Chest: Chest palpation & inspection: normal inspection of the chest Resp: Effort & Inspection: normal respiratory effort Auscultation: clear to auscultation bilaterally Cardio: Rate: regular rate Rhythm: regular rhythm GI: GI Palp: Yes Soft to palpation and No Tenderness to palpation present (GI) Skin: General skin exam: normal color Neuro: General: patient oriented x3, moves all extremities and no focal motor deficits Speech: normal speech Extrem: General: normal to inspection and no clubbing, cyanosis or edema Psych: Mental Status: mental status grossly normal Affect: normal affect Attitude: cooperative Course Vital Signs Vital signs: Vital Signs Temperature 97.1 F L 12/15/22 09:15 Pulse Rate 125 H 12/15/22 09:15 Respiratory Rate 32 H 12/15/22 09:15 Blood Pressure 140/94 H 12/15/22 09:15 Pulse Oximetry 94 12/15/22 09:15 Oxygen Delivery Room Air 12/15/22 09:15 Temperature 97.1 F L 12/15/22 09:15 Pulse Rate 110 H 12/15/22 09:55 Respiratory Rate 28 H 12/15/22 09:55 Blood Pressure 140/94 H 12/15/22 09:15 Pulse Oximetry 100 12/15/22 09:55 Oxygen Delivery Room Air 12/15/22 09:55 MDM - SOB/Dyspnea MDM Narrative Medical decision making narrative: apparent aspiration of potassium pill
[2022-12-15 09:35] VITALS: PULSE 134; RESP 24; O2SAT 98
[2022-12-15] MEDS: IPRATROPIUM 0.5 MG/ALBUTEROL SULFATE 2.5 MG AMPUL.NEB 3 ML INHALATION (09:36)
[2022-12-15 09:42] VITALS: PULSE 128; RESP 22; O2SAT 100
[2022-12-15 09:55] VITALS: PULSE 110; RESP 28; O2SAT 100
== END 2022-12-15 09:55 | disposition home or self-care (01) ==
PROVIDERS: Emergency Provider Emergency Medicine; PCP Family Medicine
DX: T18.9XXA Foreign body of alimentary tract, part unspecified, initial encounter (principal); J44.9 Chronic obstructive pulmonary disease, unspecified; Z79.899 Other long term (current) drug therapy; Z87.891 Personal history of nicotine dependence
CPT/HCPCS: 71046; 94640; 99283

== ENCOUNTER 2023-01-25 12:29 | Outpatient (CLI) | payer MEDICARE, MEDICAID, SELFPAY ==
--- NOTE | ~2023-01-25 | MM_ITS ---
EXAMINATION: MM screening trish BI w manuela HISTORY: Screening mammogram TECHNIQUE: Craniocaudal and mediolateral oblique 3-D tomosynthesis images were obtained and synthetic 2-D images were generated. CAD analysis was submitted and interpreted. COMPARISON: 12/19/2021, 12/17/2020, 10/20/2019 BREAST PARENCHYMAL COMPOSITION: The breasts are heterogeneously dense, which may obscure small masses . FINDINGS: RIGHT BREAST: No suspicious mass, calcification, or architectural distortion are identified to sugges t malignancy. LEFT BREAST: There appear to be obscured masses in the upper outer quadrant of the breast. IMPRESSION: 1. Possible obscured left breast masses 2. Additional mammographic views and possible breast ultrasound are recommended. BI-RADS Category 0: Incomplete: Needs additional imaging evaluation. Reviewed, dictated and finalized at location A. IMPRESSION: 1. Possible obscured left breast masses 2. Additional mammographic views and possible breast ultrasound are recommended . BI-RADS Category 0: Incomplete: Needs additional imaging evaluation.
== END 2023-01-25 12:30 | disposition home or self-care (01) ==
LOC: CHSIMG 12:30
PROVIDERS: PCP Family Medicine; Visit Provider Obstetrics & Gynecology
DX: Z12.31 Encounter for screening mammogram for malignant neoplasm of breast (principal); R92.8 Other abnormal and inconclusive findings on diagnostic imaging of breast
CPT/HCPCS: 77063; 77067

== ENCOUNTER 2023-02-03 08:01 | Outpatient (CLI) | payer MEDICARE, MEDICAID, SELFPAY ==
--- NOTE | ~2023-02-03 | CT_ITS ---
EXAMINATION: CT abdomen pelvis w con DATE: 02/03/2023 16:13 INDICATION: Abnormal vaginal bleeding. TECHNIQUE: Computed tomography (CT) of the abdomen and pelvis was performed with 100 mL Omnipaque 350 intravenous contrast. Automated exposure control and iterative reconstruction technique were employe d. The dose-length product was 606.48 mGy-cm. COMPARISON: CT abdomen and pelvis 05/28/2022 FINDINGS: The visualized portions of the lung bases demonstrate mild atelectasis. No pleural effusion . There is a small sliding hiatal hernia. The heart size is normal. No pericardial effusion. The live r is normal. There are changes of cholecystectomy. The spleen, pancreas, and adrenal glands are ace l. There are cysts in the kidneys measuring up to 12 mm on the left. There is mild bilateral hydronep hrosis. There is mild left hydroureter. There is a ileal conduit. There is a left inguinal hernia con taining fat. There are no dilated loops of bowel. The appendix is normal. There are no pathologically enlarged lymph nodes. There is no free intraperitoneal fluid. There is a lipoma in left gluteus mini mus muscle. There is mild lumbar spondylosis. IMPRESSION: 1. Mild bilateral hydronephrosis. Mild left hydroureter. Ileal conduit. Reviewed, dictated and finalized at location E. INERY MECHANIC
[2023-02-03 08:36] LABS: Estimated Glomerular Filt Rate > 60
== END 2023-02-03 08:02 | disposition home or self-care (01) ==
LOC: CHSIMG 08:03
PROVIDERS: PCP Family Medicine; Visit Provider Urology
DX: C67.1 Malignant neoplasm of dome of bladder (principal); N20.0 Calculus of kidney; N13.4 Hydroureter
CPT/HCPCS: 74177; Q9967

== ENCOUNTER 2023-02-04 09:19 | Outpatient (CLI) | payer MEDICARE, MEDICAID, SELFPAY ==
--- NOTE | ~2023-02-04 | MMUS_ITS ---
EXAMINATION: MM diagnostic trish LT w manuela, US breast LT limited HISTORY: Follow-up left breast asymmetries TECHNIQUE: Additional 3-D tomosynthesis images of the left breast were performed and synthetic 2-D im ages were generated. CAD analysis was submitted and interpreted. High resolution Limited left breast ultrasound was performed. COMPARISON: Comparison to multiple prior studies sequentially, with oldest reviewed study dated 10/19. BREAST PARENCHYMAL COMPOSITION: The breasts are heterogeneously dense, which may obscure small masses FINDINGS: MAMMOGRAPHIC FINDINGS: Left breast asymmetries are less dense with spot compression views. No discrete masses. Asymmetries a re persistent, although unchanged from prior studies. ULTRASOUND: Limited left breast ultrasound: At 11:00, 5 cm from the nipple, there is a 7 mm cyst. At 1:00, 7 cm f rom the nipple, there are 3 cysts, largest measuring 1.7 cm. No suspicious masses to suggest malignan cy. IMPRESSION: 1. No evidence for malignancy in the left breast. Benign findings. 2. Routine yearly screening mammogram and regular clinical breast examination are recommended. BI-RADS Category 2: Benign finding(s). Reviewed, dictated and finalized at location A. ELIFT OPERATOR IMPRESSION: 1. No evidence for malignancy in the left breast. Benign findings. 2. Routine yearly screening mammogram and regular clinical breast examination a re recommended. BI-RADS Category 2: Benign finding(s).
== END 2023-02-04 09:20 | disposition home or self-care (01) ==
LOC: CHSIMG 09:22
PROVIDERS: PCP Family Medicine; Visit Provider Family Medicine
DX: R92.8 Other abnormal and inconclusive findings on diagnostic imaging of breast (principal)
CPT/HCPCS: 76642; 77061; 77065; G0279

== ENCOUNTER 2023-04-07 11:51 | Outpatient (CLI) | payer MEDICARE, MEDICAID, SELFPAY ==
--- NOTE | ~2023-04-07 | CT_ITS ---
EXAMINATION: CT abdomen pelvis w con DATE: 04/07/2023 12:43 INDICATION: Malignant neoplasm of urinary bladder. TECHNIQUE: Computed tomography (CT) of the abdomen and pelvis was performed with 100 mL Omnipaque 350 intravenous contrast. Automated exposure control and iterative reconstruction technique were employe d. The dose-length product was 595.22 mGy-cm. COMPARISON: CT abdomen and pelvis 02/03/2023, 04/14/22 FINDINGS: The visualized portions of the lung bases demonstrate mild atelectasis. No pleural effusion . The heart size is normal. No pericardial effusion. There is a small sliding hiatal hernia. The live r is normal. There are changes of cholecystectomy. The spleen, pancreas, and adrenal glands are ace l. There are cysts in the kidneys measuring up to 12 mm on the left. There is an ileal conduit. There are bilateral inguinal hernias containing fat. There are no dilated loops of bowel. The appendix is normal. There are no pathologically enlarged lymph nodes. There is no free intraperitoneal fluid. Aor tic atherosclerosis is noted. There is a lipoma in left gluteus minimus muscle. There is a benign bon [place] in left superior pubic ramus. There is moderate lumbar spondylosis. IMPRESSION: 1. No evidence of metastatic disease. Reviewed, dictated and finalized at location A. E EXAMINER
[2023-04-07 12:17] LABS: Estimated Glomerular Filt Rate > 60
== END 2023-04-07 11:52 | disposition home or self-care (01) ==
LOC: CHSIMG 11:53
PROVIDERS: PCP Family Medicine; Visit Provider Internal Medicine Hematology & Oncology
DX: C67.9 Malignant neoplasm of bladder, unspecified (principal)
CPT/HCPCS: 74177; Q9967

== ENCOUNTER 2023-07-07 09:46 | Outpatient (CLI) | payer MEDICARE, MEDICAID, SELFPAY ==
--- NOTE | ~2023-07-07 | CT_ITS ---
CT of the Abdomen and Pelvis: Indication: Bladder cancer Technique: 2.5 mm axial scans were obtained through the abdomen and pelvis following intravenous adm inistration of 100 cc of Omnipaque 350. Dose reduction technique was used on this scan by utilizing a utomated exposure control and iterative reconstruction technique. The dose-length product (DLP) was 5 52.71 mGy-cm. COMPARISON: 04/07/2023 Findings: Scans through the lung bases are unremarkable. The liver, spleen, pancreas, adrenals and kidneys are within normal limits. Cholecystectomy clips are present. No evidence of aortic aneurysm. No lymphadenopathy. No bowel obstruction or bowel wall thickening. There is no evidence to suggest acute appendicitis. Images through the pelvis were performed. Status post cystectomy with ileal conduit in place. No pelv ic mass evident. No ascites. Small fat-containing inguinal hernias noted. Impression: No evidence of active malignancy or metastatic disease. Status post cystectomy with ileal conduit. Reviewed, dictated and finalized at location . Impression: No evidence of active malignancy or metastatic disease. Status post cystectomy with ileal conduit.
[2023-07-07 10:25] LABS: Estimated Glomerular Filt Rate > 60
== END 2023-07-07 09:47 | disposition home or self-care (01) ==
LOC: CHSIMG 09:50
PROVIDERS: PCP Family Medicine; Visit Provider Internal Medicine Hematology & Oncology
DX: C67.9 Malignant neoplasm of bladder, unspecified (principal); Z98.890 Other specified postprocedural states
CPT/HCPCS: 74177; Q9967

== ENCOUNTER 2023-07-23 01:05 | Day surgery (SDC) | payer MEDICARE, MEDICAID, SELFPAY ==
[2023-07-15 12:54] VITALS: BMI 33.6
--- NOTE | 2023-07-15 12:59 | PC.NURSE ---
Report to the Outpatient Waiting Room, entrance under the green pavilion located off [facility], at time 0900 on date 07/23/23. Planned Procedure Time: 1100. Time changes happen often and if your time is changed the preop area will call you the afternoon before. - You and your visitor will be asked to self-screen and do not enter if you have any COVID symptoms. - A mask is optional within the hospital at this time. Patients may have clear liquids (water, carbonated beverages, clear teas, apple juice) until 3 hours prior to surgery with a maximum of 20 ounces. - No food from midnight until time of surgery Take the following medications with a SIP of water the morning of surgery: INHALER, LORAZEPAM, AND PAIN PILL IF NEEDED DO NOT STOP ANY OF YOUR OTHER PRESCRIPTION MEDICATIONS PRIOR TO SURGERY ?EXCEPT THE FOLLOWING Medications to discontinue per physician: VITAMINS/SUPPLEMENTS Date to take last dose: 07/19/[address] CABRERA'S INSTRUCTIONS Please no make-up, nail gabonese, hairspray, perfume, deodorant, or body powder the day of surgery. No jewelry (including any body piercings) or valuables the day of surgery, leave them at home. Please take a shower or bath the night before, or the morning of, surgery with an antibacterial soap. Wear comfortable, loose fitting clothing. - Jewelry must be removed prior to entering the operating room. Rings and piercings that are not removed may be cut off. - The hospital will not accept responsibility for valuables. - Please leave all valuables, including medications, at home the day of surgery. If you are going home after surgery, a licensed compressed air pile driver operator must drive you home. - NO public transportation without another adult if you receive anesthesia. - We recommend that an adult stay with you for 24 hours following discharge. - We also recommend that you do not drive, make important decision, drink alcoholic beverages, or take any drugs that were not prescribed by your health care provider for at least 24 hours after your discharge time. Follow any additional instructions given to you from your surgeon. If you or anyone in your household have experienced Covid symptoms in the past week, please notify your surgeon or the nurse liaison at the phone number below for possible testing. Telephone instructions given to PT Vane ROSS and asked if any additional questions and then verbalized understanding. Patient advised to call surgeon office or pre surgery nurse liaison [phone] if any additional questions.
--- NOTE | 2023-07-23 09:41 | WPDANESEPPF ---
Anes - Initial Pre Proc Eval Procedure: Operation Date: 07/23/23 11:00 Proposed Procedures p Removal Yessy Cath - Christian Loera MD Date/Time: 07/23/23 09:41 Surgeon: Christian Loera MD Pre Op Diagnosis: Hx bladder CA Patient Data Age: 47 Gender: F Height: 1.6 m Weight: 86.2 kg Allergies Allergy/AdvReac Type Severity Reaction Status Date / Time naproxen Allergy Unknown Hives Verified 07/15/23 12:52 Sulfa (Sulfonamide Allergy Unknown Hives Verified 07/15/23 12:52 Antibiotics) tramadol AdvReac Unknown Hypotension Verified 07/15/23 12:52 IV DYE Allergy Intermediate Hives Uncoded 07/15/23 12:52 Home Medications Medication Instructions Recorded Confirmed Type cyclobenzaprine 10 mg tablet 10 mg PO HS PRN Pain 11/12/19 07/15/23 History estradiol 0.5 mg tablet 0.5 mg PO DAILY 04/14/22 07/15/23 History famotidine 40 mg tablet 40 mg PO DAILY 04/14/22 07/15/23 History progesterone micronized 200 mg 200 mg PO DAILY 04/14/22 07/15/23 History capsule losartan 50 mg-hydrochlorothiazide 1 tablet PO DAILY 04/30/22 07/15/23 History 12.5 mg tablet albuterol sulfate 90 mcg/actuation 1 inh inhalation QID PRN 07/03/22 07/15/23 History aerosol inhaler Bronchospasm lorazepam 0.5 mg tablet 1 mg PO TID PRN Anxiety 07/03/22 07/15/23 History ibuprofen 600 mg tablet 600 mg PO Q6H PRN pain #14 tabs 07/08/22 07/15/23 Rx potassium chloride 20 mEq 20 meq PO BID 09/24/22 07/15/23 History tablet,extended release cyanocobalamin (vitamin B-12) 1,000 mcg PO DAILY 07/15/23 07/15/23 History 1,000 mcg tablet ferrous sulfate 325 mg (65 mg 325 mg PO DAILY 07/15/23 07/15/23 History iron) tablet (Iron (ferrous sulfate)) hydrocodone 5 mg-acetaminophen 325 1 tablet PO Q6H PRN Pain 07/15/23 07/15/23 History mg tablet Patient hx anesthesia problems: none Family hx anesthesia problems: none Results Review: All pre-operative results and documents have been reviewed as part of the pre-operative evaluation. [facility] Past Medical History Medical History Asthma COPD (chronic obstructive pulmonary disease) DDD (degenerative disc disease) Depression GERD (gastroesophageal reflux disease) SI (sacroiliac) joint dysfunction Social History Social History Smoking packs per day: 0.5 Smoking cigarettes per day: 10.0 Years smoked: 25 Smoking pack-years: 12.50 Smoking status: Current some day smoker Tobacco type: cigarettes and e-cigarettes/vaping Smoking end date: 03/29/19 Additional smoking assessment comments: QUIT CIGARETTES, NOW VAPING Alcohol intake: never Substance use: never Substance use type: does not use Living arrangements: with family Spiritual care concerns: No Anes - Eval Final PreProcedure Day of Procedure 07/23/23 09:41 Patient weight: obese Heart: regular rate and rhythm Lungs: clear to auscultation Airway: Mallampati scale class II Neurological: alert and oriented Last oral intake: >/= 8 hours ASA classification: III Emergent: no Anesthetic plan: proceed Anesthesia type and monitoring: general GIVS and standard monitoring Results Review: All pre-operative results and documents have been reviewed as part of the pre-operative evaluation. Informed Consent: The patient's anesthetic plan and its attendant risks and benefits were discussed with the patient/family/POA. Questions were solicited and answers provided to the satisfaction of the patient/family/POA.
--- NOTE | 2023-07-23 09:43 | PM.IMHP ---
H&P: HPI History of Present Illness Date/Time: 07/23/23 09:43 Chief Complaint: Needs portacatheter removed Narrative: Pt with hx of bladder CA. Had port placed for treatment. No longer needs port for any treatments. He presents today for removal of the port Review of Systems Review of Systems: The remainder of the review of systems to include constitutional, HEENT, cardiovascular, respiratory, GI, , integumentary, musculoskeletal, endocrine, immunologic, hematologic, psychiatric, and neurologic are all negative except for which is mentioned above in the HPI. [facility] Past Medical History Medical History Asthma COPD (chronic obstructive pulmonary disease) DDD (degenerative disc disease) Depression GERD (gastroesophageal reflux disease) SI (sacroiliac) joint dysfunction Social History Social History Smoking packs per day: 0.5 Smoking cigarettes per day: 10.0 Years smoked: 25 Smoking pack-years: 12.50 Smoking status: Current some day smoker Tobacco type: cigarettes and e-cigarettes/vaping Smoking end date: 03/29/19 Additional smoking assessment comments: QUIT CIGARETTES, NOW VAPING Alcohol intake: never Substance use: never Substance use type: does not use Living arrangements: with family Spiritual care concerns: No Meds Home Medications and Allergies Home Medications Medication Instructions Recorded Confirmed Type cyclobenzaprine 10 mg tablet 10 mg PO HS PRN Pain 11/12/19 07/23/23 History estradiol 0.5 mg tablet 0.5 mg PO DAILY 04/14/22 07/23/23 History famotidine 40 mg tablet 40 mg PO DAILY 04/14/22 07/23/23 History progesterone micronized 200 mg 200 mg PO DAILY 04/14/22 07/23/23 History capsule losartan 50 mg-hydrochlorothiazide 1 tablet PO DAILY 04/30/22 07/23/23 History 12.5 mg tablet albuterol sulfate 90 mcg/actuation 1 inh inhalation QID PRN 07/03/22 07/23/23 History aerosol inhaler Bronchospasm lorazepam 0.5 mg tablet 1 mg PO TID PRN Anxiety 07/03/22 07/23/23 History ibuprofen 600 mg tablet 600 mg PO Q6H PRN pain #14 tabs 07/08/22 07/23/23 Rx potassium chloride 20 mEq 20 meq PO BID 09/24/22 07/23/23 History tablet,extended release cyanocobalamin (vitamin B-12) 1,000 mcg PO DAILY 07/15/23 07/23/23 History 1,000 mcg tablet ferrous sulfate 325 mg (65 mg 325 mg PO DAILY 07/15/23 07/23/23 History iron) tablet (Iron (ferrous sulfate)) hydrocodone 5 mg-acetaminophen 325 1 tablet PO Q6H PRN Pain 07/15/23 07/23/23 History mg tablet Allergies Allergy/AdvReac Type Severity Reaction Status Date / Time naproxen Allergy Unknown Hives Verified 07/23/23 10:00 Sulfa (Sulfonamide Allergy Unknown Hives Verified 07/23/23 10:00 Antibiotics) tramadol AdvReac Unknown Hypotension Verified 07/23/23 10:00 IV DYE Allergy Intermediate Hives Uncoded 07/23/23 10:00 Exam Const: General: comfortable and no acute distress HENMT: Ears: TM's normal bilaterally Face/Nose/Sinus: Normal nares present Mouth: Yes moist mucous membranes Eyes: General: appearance normal, both eyes and all related structures Sclera: sclerae normal Pupils: Equal, round and reactive pupils present EOM: EOMs intact bilaterally Neck: Neck: supple and no JVD Chest: Other: Well-healed scar left upper anterior chest. Left upper anterior chest port in place without redness the skin or any drainage. Resp: Effort & Inspection: normal respiratory effort Auscultation: clear to auscultation bilaterally Cardio: Rate: regular rate Rhythm: regular rhythm GI: GI Palp: Yes Soft to palpation, No Firmness to palpation present (GI), No Tenderness to palpation present (GI), No Guarding due to palpation present (GI) and No Hernia present Neuro: General: gait normal Speech: normal speech Motor exam (neuro): 5/5 motor strength present throughout Sensory Exam: normal sensation Extrem:
[2023-07-23 10:03] VITALS: BP 136/98; PULSE 90; RESP 16; TEMP 36.2; O2SAT 99
[2023-07-23] MEDS: LACTATED RINGERS 1,000 ML 30 ML IV CONT (10:30)
--- NOTE | 2023-07-23 10:54 | WPDHPUPDATE1 ---
History and Physical Update Update Date/Time: 07/23/23 10:54 History and Physical has been reviewed, including an updated exam of the patient. There are NO changes in the patient's condition. Risks, benefits, and alternatives have been discussed and questions answered. Patient agrees to proceed with procedure.
[2023-07-23] MEDS: ceFAZolin 2 GM/D5W 50 ML 2 GM/50 ML BAG IVPB (11:14)
[2023-07-23] MEDS: LIDO 1%/EPINEPHRINE 1:100,000 50 ML VIAL 20 ML INFILTRATE (11:27)
[2023-07-23] MEDS: BUPivacaine HCL 0.5% 10 ML AMP 20 ML INFILTRATE (11:27)
[2023-07-23 11:54] VITALS: BP 115/84; PULSE 100; RESP 18; O2SAT 99
[2023-07-23 12:20] VITALS: BP 122/83; PULSE 84; RESP 16
--- NOTE | 2023-07-23 14:39 | W.PM.PROC2 ---
Procedure Note - Detailed Date of Procedure 07/23/23 Pre-op Diagnosis Hx bladder CA Post-op Diagnosis Same Procedure Performed Danielle of left subclavian vein Port-A-Cath . Surgeon Christian Loera MD Anesthesia MAC Indications Patient is a 47-year-old female who has been treated for bladder cancer. She had a nadir catheter placed for the treatment. She now no longer needs the nadir catheter presents for removal. Findings None Description of Procedure After informed consent was obtained patient was brought to the operating room she was placed supine position and then IV sedation was administered by Anesthesia. The bilateral upper anterior neck and chest was then prepped and draped usual sterile fashion. Time-out was then performed correctly identifying the patient as well as procedure to be performed. She was given perioperative IV antibiotics. Patient had palpable subcutaneous port in the left upper anterior chest. I anesthetized around the old scar utilizing 1% lidocaine mixed with 0.5% Marcaine 50 50 mixture with some epinephrine. I also injected around the port and subcutaneous tissues. I then used a 15 blade scalpel to excise the old scar sharply. The scar tissue was discarded. I then dissected down through the subcutaneous tissues and subcutaneous scar tissue with electrocautery until I encountered the hub to the port. I then dissected out the hub with electrocautery until identified the proximal portion of the catheter itself. The catheter was freed up from the surrounding subcutaneous tissues then with gentle traction the catheter was removed from the left subclavian vein. Pressure was then held this area to achieve hemostasis. I continued to excise out the subcutaneous port by dividing the sutures that were holding it in place in the port pocket and dissecting the fibrous capsule off of the port. This is all done with electrocautery. Once the port was completely freed it was discarded. I then proceeded to fulgurate the fibrous capsule of the port pocket with electrocautery. I then irrigated the incision with sterile saline solution hemostasis was good. I then proceeded to close incision utilizing interrupted 3-0 Vicryl sutures in the subcutaneous tissues. Skin edges were then approximated utilizing a running subcuticular 4 Monocryl suture. The incision was then cleaned the skin glue was applied. The patient tolerated the procedure well no complications. All sponges, needles, and instrument counts were correct at the end procedure. EBL was _5__cc. The patient was awakened and taken to recovery in stable and satisfactory condition. Implants None Estimated Blood Loss 5 Drains No Packing No Pathology None sent Complications No immediate complications Condition Stable Disposition PACU [facility] Billing Surgery - Charge Forward: Surgery Billing
== END 2023-07-23 12:45 | disposition home or self-care (01) ==
PROVIDERS: PCP Family Medicine; Referring Provider Internal Medicine Hematology & Oncology; Visit Provider Surgery
PROC: (CPT 36589; principal; 2023-07-23 11:00)
DX: Z45.2 Encounter for adjustment and management of vascular access device (principal); Z85.51 Personal history of malignant neoplasm of bladder; J44.9 Chronic obstructive pulmonary disease, unspecified; K21.9 Gastro-esophageal reflux disease without esophagitis; F17.290 Nicotine dependence, other tobacco product, uncomplicated; E66.9 Obesity, unspecified; Z68.33 Body mass index [BMI] 33.0-33.9, adult; Z79.51 Long term (current) use of inhaled steroids
CPT/HCPCS: 36590; J0690; J2405; J2704; J3010; J7120

== ENCOUNTER 2023-10-21 10:36 | Outpatient (CLI) | payer MEDICARE, MEDICAID, SELFPAY ==
--- NOTE | ~2023-10-21 | XR_ITS ---
EXAM: XR shoulder RT min 2V DATE: 10/21/2023 11:05 HISTORY: right shoulder pain . COMPARISON: None available. FINDINGS: Normal mineralization. No fracture or dislocation. No lytic or blastic lesion. Moderate AC joint hypertrophy. No erosion or periosteal change. Soft tissues within normal limits. IMPRESSION: Moderate AC joint osteoarthritis. Reviewed, dictated and finalized at location K.
[2023-10-21 10:56] LABS: Basophils Absolute Auto 0.04 K/mm3 (0.00-0.10); Basophils Percent Auto 0.5 % (0.0-1.0); Eosinophils Absolute Auto 0.07 K/mm3 (0.02-0.50); Eosinophils Percent Auto 0.9 % (1.0-6.0); Hematocrit 40.5 % (35.0-49.0); Hemoglobin 14.6 g/dL (12.0-15.0); Immature Granulocyte Absolute 0.05 K/mm3 (0.00-0.00); Immature Granulocyte Percent A 0.6 % (0.0-0.0); Lymphocytes Absolute Auto 3.24 K/mm3 (1.10-4.50); Lymphocytes Percent Auto 39.8 % (18.0-42.0); Mean Corpuscular Hemoglobin 32.9 pg (27.0-31.0); Mean Corpuscular Volume 91.2 fL (78.0-102.0); Mean Platelet Volume 8.6 fl (9.2-11.8); Monocytes Absolute Auto 0.65 K/mm3 (0.10-0.90); Neutrophils Absolute Auto 4.09 K/mm3 (1.70-7.20); Neutrophils Percent Auto 50.2 % (50.0-70.0); Platelet Count Result 279 K/mm3 (150-420); Red Blood Count 4.44 M/mm3 (4.20-5.40); Red Cell Distribution Width 11.9 % (11.6-14.4); White Blood Count 8.1 K/mm3 (4.8-10.8)
[2023-10-21 11:47] LABS: Bilirubin Urine Negative (Negative); Blood Urine Trace-intact (Negative); Color Urine Light Yellow (Yellow); Glucose Urine UA Negative (Negative); Ketones Urine Negative (Negative); Leukocyte Esterase Ur 1+ (Negative); Nitrate Urine Positive (Negative); Protein Urine Negative (Negative); Urobilinogen Urine 0.2 mg/dL (0.2-1.0)
[2023-10-21 12:01] LABS: Add Urine Microscopic? YES; Appearance Urine Sl Cloudy (Clear)
[2023-10-21 12:02] LABS: Bacteria Urine 2+ /hpf; Squamous Epithelial Cell Urine Rare /hpf (Few)
[2023-10-21 12:06] LABS: Alanine Aminotransferase 63 U/L (14-59); Albumin Level 3.9 g/dL (3.4-5.0); Alkaline Phosphatase 54 U/L (46-116); Anion Gap 11 mmol/L (4-12); Aspartate Amino Transferase 31 U/L (15-37); Blood Urea Nitrogen 12 mg/dL (7-18); Calcium 9.6 mg/dL (8.5-10.1); Carbon Dioxide 25 mmol/L (21-32); Chloride 101 mmol/L (98-108); Estimated Glomerular Filt Rate > 60; Glucose 97 mg/dL (70-99); Osmolality Calculated 283 mOsm/kg (285-295); Potassium 3.8 mmol/L (3.5-5.1); Sodium 137 mmol/L (136-145); Thyroid Stimulating Hormone 0.53 uIU/mL (0.36-3.74); Total Protein 7.1 g/dL (6.4-8.2)
== END 2023-10-21 10:37 | disposition home or self-care (01) ==
PROVIDERS: PCP Family Medicine; Visit Provider Family Medicine
DX: M25.511 Pain in right shoulder (principal); R53.83 Other fatigue; M19.011 Primary osteoarthritis, right shoulder
CPT/HCPCS: 36415; 73030; 80053; 81001; 84443; 85025

== ENCOUNTER 2023-10-27 08:29 | Outpatient (CLI) | payer MEDICARE, SELFPAY | END 2023-10-27 08:30 | disposition home or self-care (01) | LOC: CHSLAB 08:32 | PROVIDERS: PCP Family Medicine; Visit Provider Family Medicine | DX: N39.0 Urinary tract infection, site not specified (principal) | CPT/HCPCS: 87086; 87088 ==

== ENCOUNTER 2023-11-10 12:12 | Outpatient (CLI) | payer MEDICARE, MEDICAID, SELFPAY ==
--- NOTE | ~2023-11-10 | CT_ITS ---
EXAMINATION: CT abdomen pelvis w con DATE: 11/10/2023 12:48 INDICATION: Malignant neoplasm of urinary bladder. TECHNIQUE: Computed tomography (CT) of the abdomen and pelvis was performed with 100 mL Omnipaque 350 intravenous contrast. Automated exposure control and iterative reconstruction technique were employe d. The dose-length product was 762.26 mGy-cm. COMPARISON: CT abdomen and pelvis 07/07/2023 FINDINGS: The visualized portions of the lung bases demonstrate mild atelectasis. No pleural effusion . The heart size is normal. No pericardial effusion. There is a small sliding hiatal hernia. The live r is normal. There are changes of cholecystectomy. The spleen, pancreas, and adrenal glands are ace l. There are cysts in the kidneys measuring up to 11 mm on the left. There is a 2 mm stone in right k idney. There is a left inguinal hernia containing fat. There are no dilated loops of bowel. The appen evan is normal. There are changes of cystectomy. There is an ileal conduit on the right. There is a 10 mm stone in the ileal conduit. There is a lipoma between left gluteus minimus and gluteus medius mus cles. There are no pathologically enlarged lymph nodes. There is no free intraperitoneal fluid. There is mild thoracolumbar spondylosis. IMPRESSION: 1. No evidence of metastatic disease. 2. Stones in the right kidney and ileal conduit. Reviewed, dictated and finalized at location A.
[2023-11-10 12:35] LABS: Estimated Glomerular Filt Rate > 60
== END 2023-11-10 12:13 | disposition home or self-care (01) ==
LOC: CHSIMG 12:14
PROVIDERS: PCP Family Medicine; Visit Provider Internal Medicine Hematology & Oncology
DX: C67.9 Malignant neoplasm of bladder, unspecified (principal); N20.0 Calculus of kidney
CPT/HCPCS: 74177; Q9967

== ENCOUNTER 2023-11-18 12:11 | Outpatient (CLI) | payer MEDICARE, MEDICAID, SELFPAY ==
[2023-11-18 12:31] LABS: Basophils Percent Auto 0.2 % (0.2-1.2); Eosinophils Absolute Auto 0.1 K/mm3 (0-0.3); Eosinophils Percent Auto 0.7 % (0-4.4); Hematocrit 41.2 % (37.0-47.0); Hemoglobin 14.7 g/dL (12.0-15.0); Immature Granulocyte Absolute 0.04 K/mm3 (0.00-0.031); Immature Granulocyte Percent A 0.5 % (0-0.5); Lymphocytes Absolute Auto 3.01 K/mm3 (0.9-3.2); Lymphocytes Percent Auto 37.3 % (18.3-44.2); Mean Corpuscular HGB Conc 35.7 g/dl (32-36); Mean Corpuscular Volume 92.4 fl (80-100); Mean Platelet Volume 8.9 fl (7.4-10.4); Monocytes Absolute Auto 0.6 K/mm3 (0.1-0.6); Monocytes Percent Auto 6.8 % (2.6-8.5); Neutrophils Absolute Auto 4.4 K/mm3 (1.3-6.7); Neutrophils Percent Auto 54.5 % (45.5-73.1); Platelet Count Result 281 k/mm3 (150-375); Red Blood Count 4.46 M/mm3 (4.2-5.4); Red Cell Distribution Width 11.9 % (11.5-14.5); White Blood Count 8.1 K/mm3 (4.5-10.0)
[2023-11-18 12:36] LABS: Blood Urea Nitrogen 10 mg/dL (8-26); Carbon Dioxide 23 mmol/L (22-30); Chloride 102 mmol/L (98-109); Estimated Glomerular Filt Rate > 60; Glucose 103 mg/dL (70-105); Ionized Calcium (POC) 1.17 mmol/L (1.11-1.31); Potassium 3.4 mmol/L (3.5-4.9); Sodium 140 mmol/L (138-146)
[2023-11-18 16:32] LABS: Alanine Aminotransferase 46 U/L (6-35); Albumin Level 4.6 g/dL (3.5-5.1); Alkaline Phosphatase 53 U/L (38-126); Anion Gap 12 mmol/L (4-12); Aspartate Amino Transferase 38 U/L (14-36); Bilirubin,Total 0.8 mg/dL (0.2-1.3); Blood Urea Nitrogen 11 mg/dL (7-17); Calcium 9.7 mg/dL (8.4-10.2); Carbon Dioxide 24 mmol/L (22-30); Chloride 101 mmol/L (98-107); Estimated Glomerular Filt Rate > 60; Glucose 99 mg/dL (65-110); Potassium 3.5 mmol/L (3.4-5.0); Sodium 137 mmol/L (137-145)
== END 2023-11-18 12:12 | disposition home or self-care (01) ==
LOC: ANHLAB 12:14
PROVIDERS: PCP Family Medicine; Visit Provider Internal Medicine Hematology & Oncology
DX: C67.9 Malignant neoplasm of bladder, unspecified (principal)
CPT/HCPCS: 36415; 80047; 80053; 85025

== ENCOUNTER 2023-12-29 15:24 | Outpatient (CLI) | payer MEDICARE, MEDICAID, SELFPAY ==
--- NOTE | ~2023-12-29 | CT_ITS ---
EXAMINATION: CT abdomen pelvis wo con DATE: 12/29/2023 15:49 INDICATION: Kidney stones. TECHNIQUE: Computed tomography (CT) of the abdomen and pelvis was performed without intravenous contr ast. Automated exposure control and iterative reconstruction technique were employed. The dose-length product was 252.19 mGy-cm. COMPARISON: CT abdomen and pelvis 11/10/2023 FINDINGS: The visualized portions of the lung bases are clear without pneumonia or pleural effusion. The heart size is normal. No pericardial effusion. There is diffuse hepatic steatosis. There are zaragoza ges of cholecystectomy. The spleen, pancreas, adrenal glands, and left kidney are normal. There is a 10 mm cyst in right kidney. There is a left inguinal hernia containing fat. An ileal conduit is noted . There are no dilated loops of bowel. The appendix is normal. The gallbladder is absent. There are n o pathologically enlarged lymph nodes. There is no free intraperitoneal fluid. There is a lipoma betw een left gluteus minimus and gluteus medius muscles. There is a benign bone island in left pelvis. Th ere is a benign bone island in L4 vertebral body. There is moderate lower lumbar spondylosis. IMPRESSION: 1. No urolithiasis. Reviewed, dictated and finalized at location A. IMPRESSION: 1. No urolithiasis.
== END 2023-12-29 15:25 | disposition home or self-care (01) ==
LOC: CHSIMG 15:25
PROVIDERS: PCP Family Medicine; Visit Provider Urology
DX: N20.0 Calculus of kidney (principal)
CPT/HCPCS: 74176

== ENCOUNTER 2024-02-09 08:16 | Outpatient (CLI) | payer MEDICARE, MEDICAID, SELFPAY ==
--- NOTE | ~2024-02-09 | MM_ITS ---
EXAMINATION: MM screening trish BI w manuela HISTORY: Screening mammogram TECHNIQUE: Craniocaudal and mediolateral oblique 3-D tomosynthesis images were obtained and synthetic 2-D images were generated. CAD analysis was submitted and interpreted. COMPARISON: 01/25/2023, 12/19/2021, 12/17/2020, 10/20/2019 BREAST PARENCHYMAL COMPOSITION:Dense: The breasts are extremely dense, which lowers the sensitivity o f mammography. FINDINGS: Upper, outer low-density left breast masses are stable in distribution, mildly increased in size, previously shown to represent simple cysts, which are presumably increasing. No suspicious par enchymal abnormality in the left breast seen. There are possible developing low-density mass is at th e upper, outer right breast posteriorly. No suspicious microcalcifications in either breast. IMPRESSION: Suspected developing low-density masses of the upper, outer right breast posteriorly. Spot compressio n views and ultrasound are recommended for further evaluation. Left breast cysts are mildly increased in size. BI-RADS Category 0: Incomplete: Needs additional imaging evaluation. Reviewed, dictated and finalized at location M. 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 Spot compression views and ultrasound are recommended for further evalua tion. Left breast cysts are mildly increased in size. BI-RADS Category 0: Incomplete: Needs additional imaging evaluation.
== END 2024-02-09 08:17 | disposition home or self-care (01) ==
LOC: CHSIMG 08:18
PROVIDERS: PCP Family Medicine; Visit Provider Family Medicine
DX: Z12.31 Encounter for screening mammogram for malignant neoplasm of breast (principal); R92.8 Other abnormal and inconclusive findings on diagnostic imaging of breast
CPT/HCPCS: 77063; 77067

== ENCOUNTER 2024-02-18 09:25 | Outpatient (CLI) | payer MEDICARE, MEDICAID, SELFPAY ==
--- NOTE | ~2024-02-18 | MMUS_ITS ---
EXAMINATION: MM diagnostic trish RT w manuela, US breast RT limited HISTORY: Upper, outer right breast mass TECHNIQUE: Additional 3-D tomosynthesis images of the right breast were performed and synthetic 2-D i mages were generated. CAD analysis was submitted and interpreted. High resolution limited right breas t ultrasound was performed. COMPARISON: 02/09/2024, 01/25/2023, 12/19/2021 BREAST PARENCHYMAL COMPOSITION:Dense: The breasts are extremely dense, which lowers the sensitivity o f mammography. FINDINGS: MAMMOGRAPHIC FINDINGS: Spot compression views demonstrate suggestion of vague low-density mass is at the upper, outer right breast. ULTRASOUND: There are multiple simple and benign appearing cysts at the upper, outer right breast. Largest cyst m easures 2.3 cm in maximum diameter, with thin internal septation. Main cysts are simple in appearance . IMPRESSION: Benign-appearing cysts at the upper, outer right breast. No suspicious lesion identified. BI-RADS Category 2: Benign finding(s). Reviewed, dictated and finalized at location M. ON BUTTONHOLE MARKER IMPRESSION: Benign-appearing cysts at the upper, outer right breast. No suspicious lesion identified. BI-RADS Category 2: Benign finding(s).
== END 2024-02-18 09:26 | disposition home or self-care (01) ==
LOC: CHSIMG 09:26
PROVIDERS: PCP Family Medicine; Visit Provider Family Medicine
DX: R92.8 Other abnormal and inconclusive findings on diagnostic imaging of breast (principal)
CPT/HCPCS: 76642; 77061; 77065; G0279

== ENCOUNTER 2024-04-11 12:53 | Outpatient (CLI) | payer MEDICARE, MEDICAID, SELFPAY ==
[2024-04-11 13:07] LABS: Basophils Percent Auto 0.4 % (0.2-1.2); Eosinophils Absolute Auto 0.1 K/mm3 (0-0.3); Eosinophils Percent Auto 0.7 % (0-4.4); Hematocrit 42.2 % (37.0-47.0); Hemoglobin 14.7 g/dL (12.0-15.0); Immature Granulocyte Absolute 0.02 K/mm3 (0.00-0.031); Immature Granulocyte Percent A 0.2 % (0-0.5); Lymphocytes Absolute Auto 3.06 K/mm3 (0.9-3.2); Lymphocytes Percent Auto 37.4 % (18.3-44.2); Mean Corpuscular HGB Conc 34.8 g/dl (32-36); Mean Corpuscular Hemoglobin 32.3 pg (26-34); Mean Corpuscular Volume 92.7 fl (80-100); Mean Platelet Volume 8.4 fl (7.4-10.4); Monocytes Absolute Auto 0.5 K/mm3 (0.1-0.6); Monocytes Percent Auto 6.2 % (2.6-8.5); Neutrophils Absolute Auto 4.5 K/mm3 (1.3-6.7); Neutrophils Percent Auto 55.1 % (45.5-73.1); Platelet Count Result 268 k/mm3 (150-375); Red Blood Count 4.55 M/mm3 (4.2-5.4); Red Cell Distribution Width 11.9 % (11.5-14.5); White Blood Count 8.2 K/mm3 (4.5-10.0)
[2024-04-11 13:12] LABS: Blood Urea Nitrogen 12 mg/dL (8-26); Carbon Dioxide 25 mmol/L (22-30); Chloride 103 mmol/L (98-109); Estimated Glomerular Filt Rate > 60; Glucose 106 mg/dL (70-105); Ionized Calcium (POC) 1.19 mmol/L (1.11-1.31); Potassium 3.8 mmol/L (3.5-4.9); Sodium 139 mmol/L (138-146)
[2024-04-11 16:30] LABS: Alanine Aminotransferase 47 U/L (6-35); Albumin Level 4.4 g/dL (3.5-5.1); Alkaline Phosphatase 61 U/L (38-126); Anion Gap 12 mmol/L (4-12); Aspartate Amino Transferase 30 U/L (14-36); Bilirubin,Total 0.9 mg/dL (0.2-1.3); Blood Urea Nitrogen 13 mg/dL (7-17); Calcium 9.7 mg/dL (8.4-10.2); Carbon Dioxide 24 mmol/L (22-30); Chloride 102 mmol/L (98-107); Estimated Glomerular Filt Rate > 60; Glucose 100 mg/dL (65-110); Sodium 138 mmol/L (137-145)
== END 2024-04-11 12:54 | disposition home or self-care (01) ==
LOC: ANHLAB 12:54
PROVIDERS: PCP Family Medicine; Visit Provider Internal Medicine Hematology & Oncology
DX: C67.9 Malignant neoplasm of bladder, unspecified (principal)
CPT/HCPCS: 36415; 80047; 80053; 85025

== ENCOUNTER 2024-04-26 11:11 | Outpatient (CLI) | payer MEDICARE, MEDICAID, SELFPAY ==
--- NOTE | ~2024-04-26 | XR_ITS ---
XR knee LT 3V 04/26/2024 11:22 INDICATION: Left knee pain PROCEDURE: 3 views left knee COMPARISON: 11/04/2020 FINDINGS: Fracture, dislocation or subluxation is not identified. The soft tissues appear within norm al limits. No foreign bodies are identified. IMPRESSION: 1: NO ACUTE BONE OR JOINT ABNORMALITY IDENTIFIED. Reviewed, dictated and finalized at location A. CLE PAINTER
--- OUTSIDE RECORDS SUMMARY | 2024-04-26 12:33 | XMS_ITS | Clinical Summary ---
Author Organization [facility] Address [address] [facility] [place] [address] Phone Care Team Providers Care Aircraft Dispatcher Name Role Phone Maury Smiht MD Primary Care Provider [phone] Allergies Active Allergy Reactions Criticality Noted Date Comments Metronidazole Unknown 03/15/2015 Iodinated Contrast Media Unknown 03/15/2015 Naproxen Hives 03/15/2015 Sulfa Antibiotics Unknown 03/15/2015 Tramadol Other (see Comments) 03/15/2015 Low blood pressure Medications cyclobenzaprine (FLEXERIL) 10 MG Tablet as needed. 0 5 Active HYDROcodone-carson taminophen (NORCO) 5-325 MG Tablet 0 5 Active methylPREDNISol one (MEDROL, TU,) 4 MG Kit Take 4 mg by mouth See Admin Instructions. Active Ibuprofen (ADVIL) 200 MG Capsule Take 800 mg by mouth 2 times daily. Active lidocaine (LIDODERM) 5 % Patch 1 Patch by Transdermal route every 24 hours. Active fish oil-omega-3 fatty acids 1000 MG Capsule Take 1,000 mg by mouth daily. Active Multiple Vitamins-Minera ls (MULTIVITAMIN PO) Take 1 Tab by mouth daily. Active HYDROcodone-carson taminophen (NORCO) 5-325 MG Tablet Take 1-2 Tabs by mouth every 4 hours as needed for Pain. 20 Tab 0 6 Active LORazepam (ATIVAN) 0.5 MG Tablet Take 1 Tab by mouth every 6 hours as needed for Anxiety. 20 Tab 0 6 Active traZODone (DESYREL) 100 MG Tablet Take 1 Tab by mouth nightly. MAY START WITH 1/2 TABLET TO SEE EFFECT 30 Tab 0 6 Active azithromycin (ZITHROMAX Z-TU) 250 MG Tablet 2 tab(s) daily for 1 day, then 1 tab(s) daily for days 2-5. 6 Tab 0 6 Active methylPREDNISol one (MEDROL DOSPACK) 4 MG Tablet Therapy Pack See product package insert for dosing schedule 21 Tab 0 6 Active guaiFENesin-cod eine (TUSSI-ORGANIDI N NR) 100-10 MG/5ML Syrup Take 5 mL by mouth every 4 hours as needed for Cough. 120 mL 0 6 Active Active Problems Problem Noted Date Diagnosed Date Sacroiliac joint dysfunction of right side 02/05 Adjustment disorder with anxious mood 10/07/2015 Social History Tobacco Use Types Packs/Day Years Used Date Smoking Tobacco: Every Day Cigarettes Smokeless Tobacco: Never Tobacco Cessation:Ready to Q uit: Yes; Counseling Given: Yes Alcohol Use Standard Drinks/Week Comments No 0 (1 standard drink = 0.6 oz pur e alcohol) Comments No Sex and Gender Information Value Date Recorded Sex Assigned at Not on file Legal Sex Female 9:43 PM CDT Gender Identity Not on file Sexual Orientation Not on file Last Filed Vital Signs Vital Sign Reading Time Taken Comments Blood Pressure 142/86 02/05/2017 10:47 AM CONCERT SINGER Pulse 96 02/05/2017 10:47 AM CONCERT SINGER Temperature 36.7 ??C (98 ??F) 02/05/2017 10:47 AM CONCERT SINGER Respiratory Rate 16 02/05/2017 10:47 AM CONCERT SINGER Oxygen Saturation 99% 02/05/2017 10:47 AM CONCERT SINGER Inhaled Oxygen Concentration - - Weight 68 kg (150 lb) 01/24/2016 8:33 AM CDT Height 162.6 cm (5' 4 ) 01/24/2016 8:33 AM CDT Body Mass Index 25.75 01/24/2016 8:33 AM CDT Plan of Treatment Health Maintenance Due Date Last Done Comments Hepatitis C Virus (HCV) Screening 1974 TdaP Immunization 1974 Hepatitis B Immunization (1 of 3 - 19+ 3-dose series) 1993 Pap Smear 07/29/1995 Cervical Cancer Screening (CCS) 2004 HPV/Cotest 2004 Colonoscopy 07/29/2019 Colorectal Cancer Screening 07/29/2019 Influenza Immunization (#1) 2023 SARS-COV-2 Immunization ( season) 2023 Respiratory Syncytial Virus (RSV) Immunization (Adult) (1 - 1-dose 75+ series) 2049 Discussion re Starting/Frequ ency of Mammograms Completed 03/11/2016 Meningococcal Immunization (ACWY) Aged Out No longer eligible based on patient's age to complete this topic Pneumococcal Immunization Combined Aged Out No longer eligible based on patient's age to complete this topic Rotavirus Immunization Aged Out No lo nger eligible based on patient's age to complete this topic Procedures Procedure Name Priority Date/Time Associated Diagnosis Comments MISTY SCREENING BILATERAL DIGITAL W CAD Routine 03/11/2016 9:08 AM CONCERT SINGER Visit for screening mammogram from Last 3 Months or Most Recently Relevant to Health Maintenance Results * MISTY SCREENING BILATERAL DIGITAL W CAD (03/11/2016 9:08 AM CONCERT SINGER) Anatomical Region Laterality Modality breast Bilateral Mammography 03/11/2016 8:52 AM CONCERT SINGER Narrative 03/11/2016 3:31 PM CONCERT SINGER - MISTY SCREENING BILATERAL DIGITAL W CAD BILATERAL DIGITAL SCREENING MAMMOGRAM WITH CAD WITH MEDIOLATERAL OBLIQUE CRANIOCAUDAL: 03/11/2016 The study was acquired using digital technology and interpreted from soft copy. ?? Current study was also evaluated with ICAD version 7.2. ?? CLINICAL: Routine screening. Patient has no complaints. No personal history of cancer. No family history of breast cancer. ?? COMPARISONS: Comparison is made to exams dated: ??08/03/2014 and 01/22/2011 [facility]. ?? BREAST TISSUE:The tissue of both breasts is heterogeneously dense. This may lower the sensitivity of mammography. ?? FINDINGS: No significant masses, calcifications, or other findings are seen in either breast. ?? There has been no significant interval change. IMPRESSION: BI-RAD 1 ??NEGATIVE There is no mammographic evidence of malignancy. A 1 year screening mammogram is recommended. ?? The patient has been or will be contacted. ?? The patient will be entered into a reminder system with a target due date of 1 year for her next screening exam. Electronically signed by: Milo Dacosta M.D. ? mmd/penrad:03/11/2016 12:15:44 ?? Lamination Inspector: Charlene Cruz(Gabbi), [facility] letter sent: Normal Exam ?? Reading location: [facility] BI-RADS: 1 Negative Procedure Note Milo Dacosta MD - 03/11/2016 - MISTY SCREENING BILATERAL DIGITAL W CAD BILATERAL DIGITAL SCREENING MAMMOGRAM WITH CAD WITH MEDIOLATERAL OBLIQUE CRANIOCAUDAL: 03/11/2016 The study was acquired using digital technology and interpreted from soft copy. Current study was also evaluated with ICAD version 7.2. CLINICAL: Routine screening. Patient has no complaints. No personal history of cancer. No family history of breast cancer. COMPARISONS: Comparison is made to exams dated: 08/03/2014 and 01/22/2011 [facility]. BREAST TISSUE:The tissue of both breasts is heterogeneously dense. This may lower the sensitivity of mammography. FINDINGS: No significant masses, calcifications, or other findings are seen in either breast. There has been no significant interval change. IMPRESSION: BI-RAD 1 NEGATIVE There is no mammographic evidence of malignancy. A 1 year screening mammogram is recommended. The patient has been or will be contacted. The patient will be entered into a reminder system with a target due date of 1 year for her next screening exam. Electronically signed by: Milo stein/penrad:03/11/2016 12:15:44 Lamination Inspector: Charlene Cruz(Gabbi), [facility] letter sent: Normal Exam Reading location: [facility] BI-RADS: 1 Negative Maury Smith MD IMG MAMMO ORDERABLES Final Result from Last 3 Months or Most Recently Relevant to Health Maintenance Care Teams Aircraft Dispatcher Relationship Specialty Start Date End Date Maury Smith MD [address] [place] [address] PCP - General Pediatrics 05/03/15
--- OUTSIDE RECORDS SUMMARY | 2024-04-26 12:33 | XMS_ITS | Clinical Summary ---
Author Organization [facility] Address [address] [place] [address] Care Team Providers Care Senior Bioinformatics Scientist Name Role Phone Maury Smith MD Primary Care Provide r Dayne Humphrey MD Unavailable [phone] Allergies Active Allergy Reactions Criticality Noted Date Comments Iodinated Contrast Media Shortness of breath,Rash High 10/27/2022 Metronidazole Stomach upset Low 06/03/2022 Nsaids (Non-Steroidal Anti-Inflammatory Drug) Swelling,Rash Medium 10/27/2022 Sulfamethoxazole-Trimeth oprim Shortness of breath,Rash High 10/27/2022 Tramadol Syncope High 06/03/2022 bp gets too low Medications estradioL (ESTRACE) 0.5 mg tablet Take 1 tablet (0.5 mg total) by mouth daily Active losartan-hydroC HLOROthiazide (HYZAAR) 50-12.5 mg per tablet Take 1 tablet by mouth daily Active potassium chloride ER 20 mEq CR tablet Take 1 tablet (20 mEq total) by mouth 2 (two) times a day 11/09/2022 Active HYDROcodone-carson taminophen (NORCO) 5-325 mg per tablet Take 1 tablet by mouth every 6 (six) hours as needed for pain 04/01/2022 Active progesterone (PROMETRIUM) 200 mg capsule Take 1 capsule (200 mg total) by mouth daily Active vitamin b complex tablet Take 1 tablet by mouth daily Active apixaban (ELIQUIS) 2.5 mg tablet Take 1 tablet (2.5 mg total) by mouth 2 (two) times a day for 14 days 28 tablet 12/25/2022 Active acetaminophen 500 mg capsuleIndicati ons:Pain Take 2 capsules (1,000 mg total) by mouth every 6 (six) hours 30 tablet 12/26/2022 Active Active Problems Problem Noted Date Diagnosed Date 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 Anxiety 12/14/2022 Asthma 12/14/2022 Cancer (CMS/HCC) 12/14/2022 Overview (12/14/2022): bladder GERD (gastroesophageal reflux disease) 3 Hypertension 12/14/2022 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 Surgical History Surgery Date Site/Laterality Comments ULNAR NERVE TRANSPOSITION Left CHOLECYSTECTOMY SALPINGECTOMY Bilateral PORTACATH PLACEMENT 06/27/2022 - 07/26/2022 Left Medical History Medical History Date Comments Hypertension Cancer (CMS/HCC) (HCC) bladder GERD (gastroesophageal reflux disease) Asthma Anxiety Social History Tobacco Use Types Packs/Day Years Used Date Smoking Tobacco: Some Days Vaping Smokeless Tobacco: Never Social Connection and Isolat ion Panel [NHANES] Answer Date Recorded In a typical week, how many times do you talk on the phone with family, friends, or neighbors? More than three times a week 12/22/2022 How often do you get togethe r with friends or relatives? Never 12/22/2022 How often do you attend chur or scientologist services? More than 4 times per year 12/22/2022 Do you belong to any clubs o r organizations such as jain groups, unions, fraternal or athletic groups, or school groups? No 12/22/2022 How often do you attend meet ings of the clubs or organizations you belong to? Never 12/22/2022 Are you , , di vorced, , never , or living with a partner? Never 12/22/2022 AUDIT-C Answer Date Recorded Q1: How often do you have a drink containing alcohol? Never 12/21/2022 Q2: How many drinks containi ng alcohol do you have on a typical day when you are drinking? Patient does not drink Q3: How often do you have si x or more drinks on one occasion? Never 12/21/2022 Overall Financial Resource Strain (CARDIA) Answe r Date Recorded How hard is it for you to pa y for the very basics like food, housing, medical care, and heating? Not hard at all 12/22/2022 Hunger Vital Sign Answer Date Recorded Within the past 12 months, y ou worried that your food would run out before you got the money to buy more. Never true 12/23/19 23 Within the past 12 months, t he food you bought just didn't last and you didn't have money to get more. Never true 12/22/2022 PRAPARE - Transportation Answer Date Re corded In the past 12 months, has l ack of transportation kept you from medical appointments or from getting medications? No 11/28 In the past 12 months, has l ack of transportation kept you from meetings, work, or from getting things needed for daily living? No 12/22/2022 Housing Stability Vital Sign Answer Christopher e Recorded In the last 12 months, was t here a time when you were not able to pay the mortgage or rent on time? No 12/22/2022 In the last 12 months, how many places have you lived? 1 12/22/2022 In the last 12 months, was t here a time when you did not have a steady place to sleep or slept in a senior care (including now)? No 12/22/2022 Personal Safety Answer Date Recorded Have you ever been in or are you currently in a harmful physical or emotional relationship or is someone making you feel afraid or unsafe? Denies 12/21/2022 Comments No Sex and Gender Information Value Date Recorded Sex Assigned at Not on file Legal Sex Female 6:48 AM CDT Gender Identity Female 10/27/2022 7:47 AM CDT Sexual Orientation Not on file Obstetrics History Last Filed Vital Signs Vital Sign Reading Time Taken Comments Blood Pressure 140/86 12/26/2022 8:50 AM CDT Pulse 112 12/26/2022 8:50 AM CDT Temperature 37.1 ??C (98.7 ??F) 12/26/2022 5:17 AM CD T Respiratory Rate 17 12/26/2022 5:17 AM CDT Oxygen Saturation 94% 12/26/2022 5:17 AM CDT Inhaled Oxygen Concentration - - Weight 83.8 kg (184 lb 11.9 oz) 12/21/2022 6:38 AM CDT Height 162.6 cm (5' 4 ) 12/21/2022 6:38 AM CDT Body Mass Index 31.71 12/21/2022 6:38 AM CDT Plan of Treatment Health Maintenance Due Date Last Done Comments Cervical Cancer Screening 1974 Colon Cancer Screening-Colonoscopy 1974 Depression Screening 1974 Hepatitis C Screening 1974 Pneumococcal vaccine <65 (1 of 2 - PCV) 1980 DTaP/Tdap/Td Vaccine (1 - Tdap) 1985 Hepatitis B Screening 1992 Regular Well Visit/Exam 18-64 1992 Influenza Vaccine (#1) 2023 Breast Cancer Screening-Mammogram 01/26/2024 01/25/2023, 03/11/2016, 03/11/2016 Medical Devices Implanted Type Area Account Executive Software Sales Device Identifier Shelf Expiration Date Model / Serial / Lot [employer] Cecilia 7fr 80cm Open Tip Luer Lock Adapter [employer] Graduate Straight Latex Free 160-210 - [id number] Implanted:Qty: 2 on 12/21/2022 by Dayne Humphrey MD at [facility] Stent Bilateral: Ureter [employer] Cecilia 09/27/2026 [id number] / / [id number] [address] [place] [address] MEDICARE [employer] MEDICARE [employer] MEDICARE MEDICARE [employer] Advance Directives For more information, please contact: [phone] * Full Code (Latest Code Status on File) Date Activated Date Inactivated Comments 12/21/2022 4:32 PM 12/26/2022 4:50 PM Care Teams Senior Bioinformatics Scientist Relationship Specialty Start Date End Date Maury Smith MD [address] [place] [address] PCP - General Family Medicine 12/08/22 [place] [id number] [place] [id number] Consulting Physician Urology 12/26/22
--- OUTSIDE RECORDS SUMMARY | 2024-04-26 12:33 | XMS_ITS | Referral Summary ---
Author Organization 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 More than 4 times per year 12/22/2022 Do you belong to any clubs o r organizations such as roman catholic groups, unions, fraternal or athletic groups, or [...] place to sleep or slept in a chcf (including now)? No 12/22/2022 Personal Safety Answer [...] AM CDT Sexual Orientation Not on file Last Filed Vital Signs Vital Sign Reading Time Taken Comments Blood Pressure 140/86 12/26/2022 8:50 AM CDT Pulse 112 12/26/2022 8:50 AM CDT Temperature 37.1 ??C (98.7 ??F) 12/26/2022 5:17 AM CD T Respiratory Rate 17 12/26/2022 5:17 AM CDT Oxygen Saturation 94% 12/26/2022 5: 17 AM CDT Inhaled Oxygen Concentration - - Weight 83.8 kg (184 lb 11.9 oz) 12/21/2022 6:38 AM CDT Height 162.6 cm (5' 4 ) 12/21/2022 6:38 AM CDT Body Mass Index 31.71 12/21/2022 6:38 AM CDT Plan of Treatment Not on file Medical Devices Implanted Type Area Merchandise Handler Device Identifier Shelf Expiration Date Model / Serial / Lot [place] [employer] Cecilia 7fr 80cm Open Tip Luer Lock Adapter [employer] Graduate [employer] Latex Free [id number] - [id number] Implanted:Qty: 2 on 12/21/2022 by Dayne Humphrey MD at [facility] Stent Bilateral: Ureter [place] Cecilia 09/27/2026 [id number] / / [id number] Insurance [employer] MEDICARE [facility] MEDIC[facility] MEDICARE [employer] Advance Directives For more information, please contact: [phone] * Full Code (Latest Code Status on File) Date Activated Date Inactivated Comments 12/21/2022 4:32 PM 12/26/2022 4:50 PM Care Teams Port Traffic Manager Relationship Specialty Start Date End Date Maury Smith MD [address] [place] [address] PCP - General Family Medicine 12/08/22 [place] [address] [place] [address] Consulting Physician Urology 12/26/22
--- OUTSIDE RECORDS SUMMARY | 2024-04-26 12:33 | XMS_ITS | Data Portability ---
Author Organization [facility] [place] Address [address] [place] [address] Care Team Providers Care Interactive Multimedia Designer Name Role Phone JOSE A VISH Primary Care Provider Assessment Encounter Date Assessment Date Assessment LastModified by Organization Details LastModified Time 02/11/2022 02/11/2022 reviewed labs per PCP- scanned into chart. elevated FSH, normal CBC and other hormone labs. mammo UTD WWE due in Mar, will schedule doing well on current Hrt. we discussed RBA to HRT. pt aware of risks. Discussed health risks of smoking/vapin g and encouraged cessation. Not available 02/11/2022 14:12:04 06/09/2022 06/09/2022 healthy female exam/menopaus e patient declines std testing pap done (LEEP 2018) mammogram due in nov, 10 years dexa none Encouraged weight bearing exercise and 1500mg daily of Calcium with Vitamin D FU 1 year or prn [email or web address] Not available 06/10/2022 15:21:28 Plan of Treatment Reminders Order Date Submit Date Provider Last Modified By Organization Details Last Modified Time Details Appointments None recorded. Lab None recorded. Referral None recorded. Procedures None recorded. Surgeries None recorded. Imaging None recorded. Medication Orders estradiol 0.5 mg tablet 2022 023 [id number], [address] [place], [address], 13:04:47 progesteron e micronized 200 mg capsule 2022 023 [employer] [id number], [address] [place], [address], 13:04:47 Patient TargetsNo targets recorded. Patient InstructionsNo instructions recorded. Reason for Referral None Reported. Results Created Date Observation Date Name Description Value Unit Range Abnormal Flag Note LastModifiedBy Organization Detail LastModifiedTime 06/10/19 23 06/09/2022 IMAGE GUIDE D PAP AND HPV REGAR DLESS image guided Pap, HPV regardless of Pap result SEE RESULT S BELOW CASE REPOR T: Cytol ogy Gynec ologi anna Repor t Case: [id number] Autho radha taylor Provi behzad: Olivia Hooper MD Colle cted: 06/09 1424 Order ing Locat ion: [place] [facility] Recei michael: 06/10 0221 First Scree n: Stephanie Phillips ica Rescr een: Jg Davis am, CT Speci men: Scree zoie Pap - Image d, Cervi x STATE MENT OF ADEQU ACY: Satis facto ry for evalu ation Trans forma tion zone compo nent absen t The absen ce of an endoc ervic al compo nent was confi rmed by an addit ional scremelina ner. FINAL DIAGN OSIS: Negat mick for Intra epith elial Lesio n or Diane medina (NIL) . Shift in nakul sugge stive of bacte rial vagin osis. Elect jerry otero by Jg Davis am, CT on 2022 at 11:56 AM ----- ----- ----- ----- ----- ----- ----- ----- ----- ----- ----- ----- ----- ----- ----- ----- ----- ---- HPV RESUL TS: HPV mRNA E6/E7 : No HPV mRNA Detec deanna NOTE: This high risk HPV mRNA assay detec ts fourt een high- risk HPV types (16, 18, 31, 33, 35, 39, 45, 51, 52, 56, 58, 59, 66, 68) witho ut diffe renti ation . COMME NT: Note: This speci men was revie wed by a Cytot echno logis t and/o r Patho logis t (as indic ated in this repor t) after evalu ation using the Thinp rep Imagi ng Syste m. CLINI ANNA INFOR MATIO N: Menst rual Statu s: LMP (if appli cable ): Clini anna Histo ry/Pr eviou s Pap: Type of Neopl ariadna (if appli cable ): Signi fican t Clini anna Findi ngs: Other Histo ry: Hormo vidhi (if appli cable ): PAP EDUCA RIK L NOTE: The Pap Test is a scree zoie test with an inher ent false negat mick rate. Liqui d-bas ed sampl ing may decre ase, but will not elimi dwayne, false negat mick resul ts. A negat mick resul t does not precl ude the prese nce and/o r devel opmen t of disea se, since the prese nce of abnor mal cells in the sampl e depen ds on the locat ion of the lesio n and sampl ing techn ique. Chelsea nued regul ar scree zoie is the best metho d of cance r preve ntion . If repor deanna cytol ogic findi ng do not corre late with physi anna and/o r histo rical findi ngs, furth er inves tigat ion is recom pascual d, as clini abdiaziz arreola nted. Not Available [facility] (Lab) [address], [place], [address], 06/12/2022 12:57:36 01/26/20 23 01/25/2023 MAMMO , scree zoie, bilat eral No observ ation record ed. [email or web address] [facility] [address] [place], [address], 04/01/2023 16:56:53 Result Notes None recorded. Problems Name Problem SNOMED Code Status Onset Date Resolution Date Notes Provider Name and Address Organization Details Recorded Time Hormone replaceme nt therapy Active 2021 Olivia Manuel MD [address], [place], [address], [facility] 2 13:47:09 Menopausa l symptom 07879941 Active 2021 Olivia Manuel MD [address], [place], [address], [facility] 2 13:47:11 Degenerat ion of intervert ebral disc 27740168 Active 2021 Olivia Manuel MD [address], [place], [address], [facility] 2 14:06:12 Fibromyal soraida 571854143 Active 2021 Olivia Manuel MD [address], [place], [address], [facility] 2 14:06:23 Gastroeso phageal reflux disease 635457107 Active 2021 Olivia Manuel MD [address], [place], [address], [facility] 2 14:07:08 History of loop electrosu rgical excision procedure 167201983947 02 Active 2021 and 2017, normal paps since 2018 Olivia Manuel MD [address], [place], [address], [facility] 2 14:07:45 Electroni c cigarette user 431286125 Active 2021 Olivia Manuel MD [address], [place], [address], [facility] 2 14:11:01 Malignant neoplasm of urinary bladder 106423612 Active 2022 Olivia Manuel MD [address] [place], [address], [facility] 3 13:02:19 Problem Notes None recorded. Procedures Surgical History Date Name Laterality Status Provider Name and Address Organization Details Recorded Time 11/28/19 22 Date of Last Mammogram completed [facility] 02/11/2022 09:33:46 06/28/19 22 Date of Last Colonoscopy completed [facility] 02/11/2022 12:01:10 04/03/19 22 Date of Last Pap Smear completed [facility] 02/11/2022 09:33:29 03/29/19 03 procedure on ulna completed [facility] 02/11/2022 12:18:26 03/29/18 97 loop electrosurgical excision procedure completed [facility] 02/11/2022 11:59:41 Tubal Ligation completed [facility] 02/11/2022 09:30:[address] [facility] 02/11/2022 09:30:57 Imaging Results Imaging Date Name Status LastModified by Organiz ation Details LastModified Time 01/25/2023 MAMMO, screening, bilateral completed [email or web address] [facility] [address] [place], [address], 04/01/2023 16:56:53 Procedure Notes None recorded. Medical Equipment None Reported. Allergies Allergen ID Allergen Name Allergen Category Reaction Reaction Severity Criticality Documentation Date Start Date Code Code System Note Provider Name and Address Organization Details Recorded Time tramadol medicatio n Not available Not available Not available 02/11/2022 23936 RxNorm [facility] 09:29:11 26964 Substance with sulfonami de structure and antibacte rial mechanism of action (substanc e) medicatio n Not available Not available Not available 02/11/2022 94934 8003 SNOMED Augustina harley, [facility] 2 09:29:17 38061 naproxen medicatio n Not available Not available Not available 02/11/2022 7258 RxNorm Augustina D[facility], [facility] 2 09:29:26 83145 iodine medicatio n Not available Not available Not available 02/11/2022 5933 RxNorm Augustina D[facility], [facility] 2 09:29:47 94389 Flagyl medicatio n Not available Not available Not available 02/11/202284226 6 RxNorm Augustina harley, [facility] 2 09:29:52 Medications Name Sig Start Date Stop Date Status Note LastModified by Organization Details LastModified Time cyclobenzap rine 10 mg tablet TAKE 1 TABLET BY MOUTH AT BEDTIME NEEDED FOR MUSCLE SPASM active Not Available Not Available No t Available fluconazole 150 mg tablet TAKE 1 TABLET BY MOUTH ONCE 02/11 completed Not Available Not Available Not Available hydrocodone 5 mg-acetamin ophen 325 mg tablet TAKE 1 TABLET BY MOUTH 4 TIMES A DAY NEEDED FOR SEVERE PAIN active Not Available Not Available No t Available famotidine 40 mg tablet TAKE 1 TABLET BY MOUTH TWICE A DAY active Not Available Not Available No t Available lorazepam 0.5 mg tablet active Not Available Not Available Not Available erythromyci n 5 mg/gram (0.5 %) eye ointment 1 APPLIC INTO RIGHT EYE FOUR TIMES DAILY 06/09 completed Not Available Not Available Not Available prednisone 50 mg tablet 1 TAB 13 HRS PRIOR TO PROCEDURE 1 TABLET 7 HRS PRIOR TO PROCEDURE 1 TABLET 1 HR PRIOR TO PROCEDURE 06/09 completed Not Available Not Available Not Available progesteron e micronized 200 mg capsule TAKE 1 CAPSULE BY MOUTH DAILY FOR 12 DAYS EACH MONTH active Not Available Not Available No t Available estradiol 0.5 mg tablet TAKE 1 TABLET BY MOUTH EVERY DAY 2023 active Not Available Not Available Not Avai lable losartan 50 mg-hydrochl orothiazide 12.5 mg tablet TAKE 1 TABLET BY MOUTH EVERY DAY 06/09 completed Not Available Not Available Not Available Estradiol Vaginal 02/11 completed Not Available Not Available Not Available [facility] Ibuprofen active Not Available Not Available No t Available Flovent Diskus 100 mcg/actuati on powder for inhalation INHALE 1 PUFF BY MOUTH 2 TIMES PER DAY active Not Available Not Available No t Available Paxlovid 300 mg (150 mg x 2)-100 mg tablets in a dose pack PLEASE SEE ATTACHED FOR DETAILED DIRECTION S 06/09 completed Not Available Not Available Not Available Vitals Date Recorded Body height Body mass index (BMI) Body weight Systolic blood pressure Diastolic blood pressure Provider Name and Address Organization Details Last Updated DateTime 02/11/2022 160.02 cm 33.1 kg/m2 75932.77 g 132 mm[Hg] 86 mm[Hg] Augustina Dillard [facility] 2 11:58:42 Date Recorded Body height Body mass index (BMI) Body weight Systolic blood pressure Diastolic blood pressure Provider Name and Address Organization Details Last Updated DateTime 06/09/2022 160.02 cm 33.3 kg/m2 58974.37 g 142 mm[Hg] 81 mm[Hg] Augustina [facility] 3 12:38:59 Social History Question Answer Notes LastModified by Organizat ion Details LastModified Time Tobacco Smoking Status Current Every Day [facility] 02/11/2022 12:22:42 What Is Your Level Of Alcohol Consumption? Occasional Information not available 02/11/2022 Have You Ever Been Counseled For Unhealthy Alcohol Use? No Information not available 02/11/2022 Has Tobacco Cessation Counseling Been Provided? No Information not available 02/11/2022 Do You Or Have You Ever Used Any Other Forms Of Tobacco Or Nicotine? No Information not available 02/11/2022 Sex: Unknown Functional Status None recorded. Mental Status None recorded. Family History Relationship Description Onset Age of this Age Resolved Age Notes LastModified by Organization Details LastModified Time Mother Asthma [email or web address] Not available 12:18:48 Mother Diabetes mellitus smcaley Not available 2021 12:19:30 Mother Hypercholest erolemia smcaley Not available 2021 12:19:45 Mother Hypertensive disorder smcaley Not available 2021 12:19:59 Mother Disorder of thyroid gland smcaley Not available 2021 12:20:15 Mother Osteoporosis smcaley Not availa ble 02/11/2022 12:20:53 Sister Asthma smcaley Not available 12:18:48 Sister Hypercholest erolemia smcaley Not available 2021 12:19:45 Sister Hypertensive disorder smcaley Not available 2021 12:19:59 Sister Disorder of thyroid gland smcaley Not available 2021 12:20:15 Father Heart disease smcaley Not available 2021 12:19:15 Father Substance abuse smcaley Not available 2021 12:20:37 Father Myocardial infarction smcaley Not available 02/11 12:21:17 Father Malignant tumor of lung smcaley Not available 2021 12:21:46 Paternal Grandfather Heart disease smcaley Not available 2021 12:19:15 Paternal Grandfather Myocardial infarction smcaley Not available 02/11 12:21:17 Paternal Grandmother Heart disease smcaley Not available 2021 12:19:15 Paternal Grandmother Diabetes mellitus smcaley Not available 2021 12:19:30 Paternal Grandmother Disorder of thyroid gland smcaley Not available 2021 12:20:15 Maternal Grandfather Heart disease smcaley Not available 2021 12:19:15 Maternal Grandmother Heart disease smcaley Not available 2021 12:19:15 Maternal Grandmother Osteoporosis smcaley Not available 1 04/13/2021 12:20:53 Maternal Grandmother Myocardial infarction smcaley Not available 02/11 12:21:17 Son Substance abuse smcaley Not available 2021 12:20:37 Maternal Aunt Malignant tumor of lung smcaley Not available 2021 12:21:46 Paternal Aunt Malignant tumor of lung smcaley Not available 2021 12:21:46 Paternal Uncle Malignant tumor of lung smcaley Not available 2021 12:21:46 Paternal Uncle Malignant tumor of colon smcaley Not available 2021 12:22:02 Medical History Condition Response Allergies (Food, seasonal, environmental ) N Other N Breast Cancer N Drug/Latex Allergies/Reactions N Blood Transfusion N Dermatologic Disorders N Lung Disease N Defects or Inherited Disease N Breast Problem N Gestational Diabetes N Hematologic disorders N Anesthesia Complications N History of STI Y Deep Vein Thrombosis N Polycystic ovary syndrome N Anxiety Disorder N Autoimmune disease N Arthritis Y Infertility N Polyps N Acid Reflux (GERD) N History of abnormal pap Y Cancer Y Stroke N Varicosities N Neurologic/Epilepsy N Endometriosis N High Cholesterol N Headaches N Fibromyalgia Y Kidney Disease N Heart Problems N Kidney or Bladder Problems N Thyroid Problems N GI Problems Y Eating Disorder N Anemia N Art (IVF or FET) N Psychiatric Illness N Ovarian Cancer N Diabetes N Pulmonary (TB, Asthma) N Hepatitis/Liver Disease N No Past Medical History N Eczema N Urinary Tract Infection N Abuse/Domestic Violence N Asthma Y Trauma/Violence N Depression/ depression N Heart Disease N Pre-Eclampsia N Hypertension N Osteoporosis N Thrombophilias N Gynecological History Statement/Question Response Abnormal Pap Yes Date of Last Mammogram 11/27/2021 Date of Last Colonoscopy 06/27/2021 Date of LMP 05/27/2022 Age of first menstrual cycle 14 Date of Last Pap Smear 04/03/2021 Current Control Method Tubal Ligat ion Obstetrics History GPAL:G 3 P 3 0 0 3 Type Value Full Term 3 Living 3 Total 3 Past Encounters Encounter ID Performer Location Encounter Start Date Encounter Closed Date Diagnosis/Indication Diagnosis SNOMED-CT Code Diagnosis ICD10 Code Diagnosis Note [id number] Olivia Manuel MD [place] [address] [address] 02/11/2022 11:31:01 02/11/2022 14:41:24 Hormone replacement therapy 317180665 Z79.890 Menopausal symptom 10021 002 N95.1 Transition of care 50545 90882 105 Z75.8 History of loop electrosurgical excision procedure 9554832767 9102 Z98.890 Electronic cigarette user 912585687 Z72.89 [id number] Olivia Manuel MD [place] [address] [address] 06/09/2022 12:09:46 06/10/2022 15:39:54 Malignant neoplasm of urinary bladder 219501448 C67.9 Gynecologi c examination 61274866 Z01.419 Z11.51 Hormone re placement therapy 163937458 Z79.890 Health Concerns Section Related Observation LastModified by Organization Detai ls LastModified Time None Recorded Concern Status LastModified by Organization Details LastModified Time None Recorded Advance Directives Directive None Recorded Payers Encounter Date Sequence Insurance Name Policy Number Policy Nayak Covered Member ID Nayak Member ID Guarantor Name 02/11/2022 2 [place] [facility] Tory Hearty [id number] Tory Hearty 02/11/2022 1 [place] Tory D Hearty [id number] Tory Hearty 06/09/2022 2 [place] [facility] Tory Hearty [id number] Tory Hearty 06/09/2022 1 [place] Tory D Hearty [id number] Tory Hearty Notes Date Note Type Note Provider Name and Address Organization Details Recorded Time 02/11/2022 text/html Patient is a 46y o who presents for establishing care and concerns about HRT. She is sexually active. Menopause confirmed with FSH of 61 in summer. She wants a new provider because she is tired of not being heard. Her menopausal sx have been trouble sleeping, hot flashes, and mood sx. she was on prempro about 2 years ago, had achy muscles, felt terrible, and bled nonstop. she went off, tried a lot of OTC/herbals/supple ments, none of which worked. PCP got her on estradiol oral 0.5mg daily in September with progesterone 200 daily for first 12d of each month. 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 She now feels fat but happy, is sleeping, and mood much improved. Concerns: last WWE: pap 03/2021. history of LEEPs 1996 and 2017, paps all normal since. msmmo 11/2021 Depression:deniesv apes, quit smoking Domestic violence:denies Olivia Manuel MD [address], [place], [address], [facility] 02/11/2022 14:12:40 06/09/2022 text/html Patient is a 46y o who presents for an annual exam. She was just diagosed with bladder cancer and is awaiting the scheduling of her surgery. She is pretty shook up. Is still vaping. Needs HRT refil. last pap-03/2021 nl. second LEEP in 2018 mammogram-11/2021 sexually active-y contraception-venancio pausal seatbelts-y exercise-y depression-denies domestic violence-denies tobacco-vapes concerns-none Olivia Manuel MD [address], [place], [address], [facility] 06/10/2022 15:21:52 OBGyn Episode Ob Episode Information Episode Created Date Number of Fetuses Patient Bloodtype Patient rh Status Prepregnancy Weight lbs Domestic Partner Domestic Partner Phone Father Name High Scaler Status 02/12/20 22 1 CLOSED Fetus Data First Name Last Name Admitted to NICU Weight (g) Sex Living Outcome Pediatric Complications Fetus ID Race Codes Race Delivery Type 3288.54 2 M Full Term [id number] Vaginal Delivery Demarcus Calculation Initial Demarcus Date Initial Exam Date Initial Exam Provider Initial Ultrasound Date Last Menstrual Period Date Ultra Sound Weeks Gestation 0 Eighteen To Twenty Week Demarcus Update Ultra Sound Date Fundal Height At Umbil Quickening Date Ultra Sound Latest Weeks Gestation Final Demarcus Confirmed By Final Demarcus Confirmed Date Final Demarcus Date Ultra Sound Latest Days Gestation 0 0 Menstrual History Last Menstrual Date Menses Monthly On Bcp Conception Prior Menses Frequency Hcg Plus Date Menarche Onset Age Delivery Information Delivery Date Delivery Type Labor Anesthesia Weeks Gestation Incision Type Labor Labor Length Hrs Delivered By Post Complications Tubal Sterilization Discharge Date Comments 1 37 Discharge Information Feeding Method Contraceptive Method Maternal HG B and HCT Levels Ob Episode Information Episode Created Date Number of Fetuses Patient Bloodtype Patient rh Status Prepregnancy Weight lbs Domestic Partner Domestic Partner Phone Father Name High Scaler Status 02/12/20 22 1 CLOSED Fetus Data First Name Last Name Admitted to NICU Weight (g) Sex Living Outcome Pediatric Complications Fetus ID Race Codes Race Delivery Type 3373.36 3704 M Full Term [id number] Vaginal Delivery Demarcus Calculation Initial Demarcus Date Initial Exam Date Initial Exam Provider Initial Ultrasound Date Last Menstrual Period Date Ultra Sound Weeks Gestation 0 Eighteen To Twenty Week Demarcus Update Ultra Sound Date Fundal Height At Umbil Quickening Date Ultra Sound Latest Weeks Gestation Final Demarcus Confirmed By Final Demarcus Confirmed Date Final Demarcus Date Ultra Sound Latest Days Gestation 0 0 Menstrual History Last Menstrual Date Menses Monthly On Bcp Conception Prior Menses Frequency Hcg Plus Date Menarche Onset Age Delivery Information Delivery Date Delivery Type Labor Anesthesia Weeks Gestation Incision Type Labor Labor Length Hrs Delivered By Post Complications Tubal Sterilization Discharge Date Comments 4 40 Discharge Information Feeding Method Contraceptive Method Maternal HG B and HCT Levels Ob Episode Information Episode Created Date Number of Fetuses Patient Bloodtype Patient rh Status Prepregnancy Weight lbs Domestic Partner Domestic Partner Phone Father Name High Scaler Status 02/12/20 22 1 CLOSED Fetus Data First Name Last Name Admitted to NICU Weight (g) Sex Living Outcome Pediatric Complications Fetus ID Race Codes Race Delivery Type 3288.54 2 M Full Term [id number] Vaginal Delivery Demarcus Calculation Initial Demarcus Date Initial Exam Date Initial Exam Provider Initial Ultrasound Date Last Menstrual Period Date Ultra Sound Weeks Gestation 0 Eighteen To Twenty Week Demarcus Update Ultra Sound Date Fundal Height At Umbil Quickening Date Ultra Sound Latest Weeks Gestation Final Demarcus Confirmed By Final Demarcus Confirmed Date Final Demarcus Date Ultra Sound Latest Days Gestation 0 0 Menstrual History Last Menstrual Date Menses Monthly On Bcp Conception Prior Menses Frequency Hcg Plus Date Menarche Onset Age Delivery Information Delivery Date Delivery Type Labor Anesthesia Weeks Gestation Incision Type Labor Labor Length Hrs Delivered By Post Complications Tubal Sterilization Discharge Date Comments 6 38 Discharge Information Feeding Method Contraceptive Method Maternal HG B and HCT Levels
--- OUTSIDE RECORDS SUMMARY | 2024-04-26 12:33 | XMS_ITS | Clinical Summary ---
Author Organization [facility] Address [address] [place] [address]. [place] [address] [place] [address] Care Team Providers Care Records Management Coordinator Name Role Phone Maury Smith MD Primary Care Provider [phone] Allergies Active Allergy Reactions Criticality Noted Date Comments Iodine Shortness of Breath,Rash High 06/03/2022 Needs pre-treatment Metronidazole GI Upset 06/03/2022 Naproxen Shortness of Breath,Rash High 06/03/2022 Sulfa Antibiotics Shortness of Breath,Rash High 06/03/2022 Tramadol Syncope 06/03/2022 bp gets too low Medications losartan (COZAAR) 50 MG tablet Take 1 tablet (50 mg total) by mouth daily. Active hydroCHLOROthiaz rachele (MICROZIDE) 12.5 MG tablet Take 1 tablet (12.5 mg total) by mouth every morning. Active estradiol (ESTRACE) 1 MG tablet Take 1 tablet (1 mg total) by mouth daily. Active famotidine (PEPCID) 10 MG tablet Take 1 tablet (10 mg total) by mouth 2 (two) times daily. Active HYDROcodone-acet aminophen (NORCO) 5-325 MG tablet Take 1 tablet by mouth every 6 (six) hours as needed for Pain. Active Family History Medical History Relation Comments Cancer Father lung with mets t o bone Heart Disease Father Hypertension Father [place] Father Diabetes Mother Hypertension Mother Hypertension Sister Relation Status Comments Brother Alive Father Mother Alive Sister Alive Son 1 Alive Son 2 Alive Son 3 Alive Social History Tobacco Use Types Packs/Day Years Used Date Smoking Tobacco: Former Cigarettes 1 30 1 989 - 2019 Smokeless Tobacco: Never Tobacco Cessation:Counseling Given: Not Answered Comments:Uses a VAPE currently Alcohol Use Standard Drinks/Week Comments Not Currently 0 (1 standard drink = 0.6 oz pur e alcohol) Comments No Sex and Gender Information Value Date Recorded Sex Assigned at Not on file 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 Gender Identity Not on file Sexual Orientation Not on file Last Filed Vital Signs Vital Sign Reading Time Taken Comments Blood Pressure 142/80 06/18/2022 3:35 PM CDT Pulse 99 06/18/2022 3:35 PM CDT Temperature 36.8 ??C (98.2 ??F) 06/18/2022 3:35 PM CD T Respiratory Rate 16 06/18/2022 3:35 PM CDT Oxygen Saturation 97% 06/18/2022 3:35 PM CDT Inhaled Oxygen Concentration - - Weight 86 kg (189 lb 9.5 oz) 06/18/2022 10:30 AM CDT Height 162.6 cm (5' 4 ) 06/18/2022 10:30 AM CDT Body Mass Index 32.54 06/18/2022 10:30 AM CDT Plan of Treatment Health Maintenance Due Date Last Done Comments Colorectal Cancer Screening Colonoscopy (10 Years) 1974 Annual Physical 1977 Hepatitis C 1992 DTaP, Tdap and Td Vaccines ( 1 - Tdap) 1993 Hepatitis B Vaccines (1 of 3 - 19+ 3-dose series) 1993 Cervical Cancer Screening Pa p with HPV Testing (Age 30 to 64) Every 5 Years 2004 Mammogram Screening 2014 COVID-19 Vaccine ( - 2023-2 5 season) 2023 Influenza Adult (#1) 2023 Cervical Cancer Screening Pa p Smear (Age 30 to 64) Every 3 Years 06/09/2025 06/09/2022 Cervical Cancer Screening with HPV 06/09/2025 Meningococcal B Vaccine Aged Out No l onger eligible based on patient's age to complete this topic Meningococcal Vaccine Aged Out No claire hardeep eligible based on patient's age to complete this topic Pneumococcal Vaccine: Pediat rics (0 to 5 Years) and At-Risk Patients (6 to 64 Years) Aged Out No longer eligi ble based on patient's age to complete this topic RSV Immunizations Under 20 Months Aged Out No longer eligible based on patient's age to complete this topic Insurance MEDICARE MEDICAID Care Teams Records Management Coordinator Relationship Specialty Start Date End Date Maury Smith MD [address] [place] [address] PCP - General FAMILY PRACTICE 06/03/22
== END 2024-04-26 11:12 | disposition home or self-care (01) ==
PROVIDERS: PCP Family Medicine; Visit Provider Family Medicine
DX: M25.562 Pain in left knee (principal)
CPT/HCPCS: 73562

== ENCOUNTER 2024-05-08 09:43 | Outpatient (RCR) | payer MEDICARE, MEDICAID, SELFPAY ==
--- NOTE | 2024-05-08 10:32 | PTOPEVAL1 ---
Assessment and note entered by Jonel Santos Evaluation Information Assessment Status Evaluation ICD-10 Condition Codes (PT) Pain in left knee M25.562,Difficulty Walking R26.2 Onset 01/28/24 Subjective Information Pt. reports that she developed left knee pain around Thanksgi. She states that initially she experienced fluctuating pain. She states that she currently notices swelling, weakness and a feeling of the knee wanting to give out. She describes pain under the knee cap and on the inside of the knee. She states that she takes daily hydrocodone due to chronic back and hip problems, but does not take medication specifically for her knee. She states that she does not sleep well, but not due to developed knee pain. She notices that since developing left knee pain movements are slower, however her movements have been limited due to chronic back problems. She reports that her goal for therapy is to reduce her knee pain. Reported Pain Level Pain Score 2: Self Report Assessment PT Clinical Summary Pt. is a 48 year old female who enters the clinic with left knee pain. She presents with indication of patellofemoral syndrome on this date. She currently presents with impaired proximal l.e. strength, impaired flexibility, impaired gait, pain and impaired postural awareness. Continued skilled PT is indicated in order to improve these areas to allow for improve comfort with IADL performance. Plan of Care Interventions Electrical Stimulation,Gait Training,Hot Pack/Cold Pack,Manual Therapy,Neuro Re-education,Patient/ Caregiver Education,Therapeutic Activities, Therapeutic Exercise PT Services Indicated Yes Treatment Frequency and 2x/week x 8 visits Duration These treatments will address the objective and functional deficits as defined above. The patient will be advanced safely and appropriately in order for the patient to progress towards his/her prior level of function. Additional exercises will be introduced and as well as a comprehensive home exercise program upon discharge, if needed, ?to ensure carryover of functional gains achieved in the clinic. This treatment plan has been reviewed and agreement upon by the patient.
--- NOTE | 2024-05-10 08:54 | PCPTNOTE ---
Cancelled session today.
== END 2024-05-08 20:00 | disposition home or self-care (01) ==
LOC: CHSPT 09:43
PROVIDERS: PCP Family Medicine; Visit Provider Family Medicine
DX: M25.562 Pain in left knee (principal); R26.2 Difficulty in walking, not elsewhere classified
CPT/HCPCS: 97014; 97110; 97161; G0283

== ENCOUNTER 2024-08-01 08:49 | Outpatient (CLI) | payer MEDICARE, MEDICAID, SELFPAY ==
--- NOTE | ~2024-08-01 | CT_ITS ---
CT of the Abdomen and Pelvis: Indication: Malignant neoplasm of urinary bladder Technique: 2.5 mm axial scans were obtained through the abdomen and pelvis following intravenous adm inistration of 100 cc of Omnipaque 350. Dose reduction technique was used on this scan by utilizing a utomated exposure control and iterative reconstruction technique. The dose-length product (DLP) was 6 17.80 mGy-cm. COMPARISON: 12/29/2023 Findings: Scans through the lung bases are unremarkable. The liver, spleen, pancreas, adrenals and kidneys are within normal limits. Cholecystectomy clips are present. No evidence of aortic aneurysm. No lymphadenopathy. No bowel obstruction or bowel wall thickening. There is no evidence to suggest acute appendicitis. Images through the pelvis were performed. Status post cystectomy and ileal conduit. No pelvic mass se en. No ascites. Impression: No evidence for active malignancy or metastatic disease. Status post cystectomy with ileal conduit. Reviewed, dictated and finalized at [facility]. Impression: No evidence for active malignancy or metastatic disease. Status post cystectomy with ileal conduit.
[2024-08-01 09:18] LABS: Estimated Glomerular Filt Rate > 60
--- OUTSIDE RECORDS SUMMARY | 2024-08-01 09:19 | XMS_ITS | Data Portability ---
Author Organization [facility] [place] Address [address] [address] Care Team Providers Care Retoucher Name Role Phone JOSE A VISH Primary Care Provider [phone] Assessment Encounter Date Assessment Date Assessment LastModified by Organization Details LastModified Time 02/11/2022 02/11/2022 reviewed labs per PCP- scanned into chart. elevated FSH, normal CBC and other hormone labs. mammo UTD WWE due in Mar, will schedule doing well on current Hrt. we discussed RBA to HRT. pt aware of risks. Discussed health risks of smoking/vapin g and encouraged cessation. [email or web address] Not available 02/11/2022 14:12:04 06/09/2022 06/09/2022 healthy female exam/menopaus e patient declines std testing pap done (LEEP 2018) mammogram due in nov, 10 years dexa none Encouraged weight bearing exercise and 1500mg daily of Calcium with Vitamin D FU 1 year or prn [email or web address] Not available 06/10/2022 15:21:28 Plan of Treatment Reminders Order Date Submit Date Provider Last Modified By Organization Details Last Modified Time Details Appointments None recorded. Lab None recorded. Referral None recorded. Procedures None recorded. Surgeries None recorded. Imaging None recorded. Medication Orders estradiol 0.5 mg tablet 2022 023 [id number], [address] [place], [address], 13:04:47 progesteron e micronized 200 mg capsule 2022 023 [id number], [address] [place], [address], 13:04:47 Patient TargetsNo targets recorded. Patient InstructionsNo [...] as clini abdiaziz arreola nted. Not Available [facility] (Lab) [address] [facility], [place], [address], 06/12/2022 12:57:36 01/26/20 23 01/25/2023 MAMMO , scree zoie, bilat eral No observ ation record ed. [email or web address] [facility] [address] [place], [address], 04/01/2023 16:56:53 Result Notes None recorded. Problems Name Problem SNOMED Code Status Onset Date Resolution Date Notes Provider Name and Address Organization Details Recorded Time Hormone replaceme nt therapy Active 2021 Olivia Manuel MD [address], [place], [address], [facility] 2 13:47:09 Menopausa l symptom 27918290 Active 2021 Olivia Manuel MD [address], [place], [address], [facility] 2 13:47:11 Degenerat ion of intervert ebral disc 88154902 Active 2021 Olivia Manuel MD [address], [place], [address], [facility] 2 14:06:12 Fibromyal soraida 028191480 Active 2021 Olivia Manuel MD [address], [place], [address], [facility] 2 14:06:23 Gastroeso phageal reflux disease 710068494 Active 2021 Olivia Manuel MD [address], [place], [address], [facility] 2 14:07:08 History of loop electrosu rgical excision procedure 293627544774 02 Active 2021 and 2017, normal paps since 2018 Olivia Manuel MD [address], [place], [address], [facility] 2 14:07:45 Electroni c cigarette user 528690056 Active 2021 Olivia aMnuel MD [address], [place], [address], [facility] 2 14:11:01 Malignant neoplasm of urinary bladder 205099709 Active 2022 Olivia Manuel MD [address] [place], [address], [facility] 3 13:02:19 Problem Notes None recorded. Procedures Surgical History Date Name Laterality Status Provider Name and Address Organization Details Recorded Time 11/28/19 22 Date of Last Mammogram completed [facility] 02/11/2022 09:33:46 06/28/19 22 Date of Last Colonoscopy completed [facility] 02/11/2022 12:01:10 04/03/19 22 Date of Last Pap Smear completed [facility] 02/11/2022 09:33:29 03/29/19 03 procedure on ulna completed [facility] 02/11/2022 12:18:26 03/29/18 97 loop electrosurgical excision procedure completed [facility] 02/11/2022 11:59:41 Tubal Ligation completed [facility] 02/11/2022 09:30:[address] [facility] 02/11/2022 09:30:57 Imaging Results Imaging Date Name Status LastModified by Organiz ation Details LastModified Time 01/25/2023 MAMMO, screening, bilateral completed [email or web address] [facility] [address] [place], [address], 04/01/2023 16:56:53 Procedure Notes None recorded. Medical Equipment None Reported. Allergies Allergen ID Allergen Name Allergen Category Reaction Reaction Severity Criticality Documentation Date Start Date Code Code System Note Provider Name and Address Organization Details Recorded Time tramadol medicatio n Not available Not available Not available 02/11/2022 11113 RxNorm [facility] 09:29:11 40981 Substance with sulfonami de structure and antibacte rial mechanism of action (substanc e) medicatio n Not available Not available Not available 02/11/2022 34805 8003 SNOMED Augustina harley, [facility] 2 09:29:17 87689 naproxen medicatio n Not available Not available Not available 02/11/2022 7258 RxNorm Augustina Dillard [facility], [facility] 2 09:29:26 47999 iodine medicatio n Not available Not available Not available 02/11/2022 5933 RxNorm Augustina Dillard [facility], [facility] 2 09:29:47 18068 Flagyl medicatio n Not available Not available Not available 02/11/202253839 6 RxNorm Augustina harley, [facility] 2 09:29:52 Medications Name Sig Start [...] Updated DateTime 02/11/2022 160.02 cm 33.1 kg/m2 03193.77 g 132 mm[Hg] 86 mm[Hg] Augustina Dillard [facility] 2 11:58:42 Date Recorded Body height Body mass index (BMI) Body weight Systolic blood pressure Diastolic blood pressure Provider Name and Address Organization Details Last Updated DateTime 06/09/2022 160.02 cm 33.3 kg/m2 52299.37 g 142 mm[Hg] 81 mm[Hg] Augustina [facility] 3 12:38:59 Social History Question Answer Notes LastModified by Organizat ion Details LastModified Time Tobacco Smoking Status Current Every Day Smoker [facility] 02/11/2022 [...] [email or web address] Not available 02/11 12:21:17 Father Malignant neoplasm of lung [email or web address] Not available 2021 12:21:46 [...] Not available 2021 12:20:37 Maternal Aunt Malignant neoplasm of lung [email or web address] Not available 2021 12:21:46 Paternal Aunt Malignant neoplasm of lung smcaley Not available 2021 12:21:46 Paternal Uncle Malignant neoplasm of lung smcaley Not available 2021 12:21:46 [...] SNOMED-CT Code Diagnosis ICD10 Code Diagnosis Note [id number] Olivia Manuel MD [place] [address] [address] 02/11/2022 11:31:01 02/11/2022 14:41:24 Hormone replacement therapy 240414125 Z79.890 Menopausal symptom 24789 002 N95.1 Transition of care 56534 46273 105 Z75.8 History of loop electrosurgical excision procedure 2731479335 9102 Z98.890 Electronic cigarette user 947451945 Z72.89 [id number] Olivia Manuel MD [place] [address] [address] 06/09/2022 12:09:46 06/10/2022 15:39:54 Malignant neoplasm of urinary bladder 249623197 C67.9 Gynecologi c examination 41689513 Z01.419 Z11.51 Hormone re placement therapy 620576712 Z79.890 Health Concerns Section Related Observation LastModified by Organization Detai ls LastModified Time None Recorded Concern Status LastModified by Organization Details LastModified Time None Recorded Advance Directives Directive None Recorded Payers Encounter Date Sequence Insurance Name Policy Number Policy Nayak Covered Member ID Nayak Member ID Guarantor Name 02/11/2022 2 [place] [employer] Tory Hearty [id number] Tory Hearty 02/11/2022 1 [place] Tory D Hearty [id number] Tory Hearty 06/09/2022 2 [place] [employer] Tory Hearty [id number] Tory Hearty 06/09/2022 1 [place] Tory D Hearty [id number] Tory Hearty Notes Date Note Type Note [...] doing much better but wanted a new quencher operator. She now feels fat but happy, is sleeping, and mood much improved. Concerns: last WWE: pap 03/2021. history of LEEPs 1996 and 2017, paps all normal since. msmmo 11/2021 Depression:deniesv apes, quit smoking Domestic violence:denies Olivia Manuel MD [address], [place], [address], [facility] 02/11/2022 14:12:40 06/09/2022 text/html Patient [...] concerns-none Olivia Manuel MD [address], [place], [address], [facility] 06/10/2022 15:21:52 OBGyn Episode Ob Episode Information Episode Created Date Number of Fetuses Patient Bloodtype Patient rh Status Prepregnancy Weight lbs Domestic Partner Domestic Partner Phone Father Name Legal Internship Status 02/12/20 22 1 CLOSED Fetus Data First Name Last Name Admitted to NICU Weight (g) Sex Living Outcome Pediatric Complications Fetus ID Race Codes Race Delivery Type 3288.54 2 M Full Term 30878 Vaginal Delivery Demarcus Calculation Initial Demarcus Date [...] Domestic Partner Domestic Partner Phone Father Name Legal Internship Status 02/12/20 22 1 CLOSED Fetus Data First Name Last Name Admitted to NICU Weight (g) Sex Living Outcome Pediatric Complications Fetus ID Race Codes Race Delivery Type 3373.36 3704 M Full Term [id number] Vaginal Delivery Demarcus Calculation Initial Demarcus Date [...] Domestic Partner Domestic Partner Phone Father Name Legal Internship Status 02/12/20 22 1 CLOSED Fetus Data First Name Last Name Admitted to NICU Weight (g) Sex Living Outcome Pediatric Complications Fetus ID Race Codes Race Delivery Type 3288.54 2 M Full Term 91271 Vaginal Delivery Demarcus Calculation Initial Demarcus Date [...]
--- OUTSIDE RECORDS SUMMARY | 2024-08-01 09:20 | XMS_ITS | Clinical Summary ---
[facility] Address [address] [facility] [address] Care Team Providers Care Scientific Laboratory Supervisor Name Role Phone Maury Smith MD Primary Care Provider [phone] Allergies Active Allergy Reactions Criticality Noted Date Comments Iodinated Contrast Media Hives High 07/02/2022 Naproxen Hives High 07/02/2022 Sulfa (Sulfonamide Antibiotics) Hives High 08/2022 Medications cyclobenzaprine (FLEXERIL) 10 mg tablet TAKE 1 TABLET BY MOUTH AT BEDTIME NEEDED FOR MUSCLE SPASM 06/26/2022 Active estradioL (ESTRACE) 0.5 mg tablet Take 0.5 mg by mouth daily. 06/10/2022 Active famotidine (PEPCID) 40 mg tablet Take 40 mg by mouth 2 times daily. 06/09/2022 Active HYDROcodone-carson taminophen (NORCO) 5-325 mg tablet TAKE 1 TABLET BY MOUTH 4 TIMES A DAY NEEDED FOR SEVERE PAIN 04/01/2022 Active losartan-hydroC HLOROthiazide (HYZAAR) 50-12.5 mg tablet Take 1 Tablet by mouth daily. 06/08/2022 Active progesterone micronized (PROMETRIUM) 200 mg Capsule TAKE 1 CAPSULE BY MOUTH DAILY FOR 12 DAYS EACH MONTH 06/09/2022 Active LORazepam (ATIVAN) 0.5 mg tabletIndicatio ns:Anxiety state TAKE 2 TABLETS BY MOUTH 3 TIMES PER DAY NEEDED FOR SEVERE ANXIETY 30 Tablet 08/31/2023 Active escitalopram oxalate (LEXAPRO) 10 mg tablet Take 10 mg by mouth daily. 01/21/2024 Active Active Problems Problem Noted Date Diagnosed Date Neutropenia 07/31/2022 Encounter for prophylaxis fo r neutropenia due to chemotherapy 07/31/2022 Encounters Date Type Department Care Team Description 07/11/2024 External Device Data STL ABSTRACTION Provider, Abstract 06/14/2024 External Device Data STL ABSTRACTION Provider, Abstract 06/03/2024 External Device Data STL ABSTRACTION Provider, Abstract 06/02/2024 External Device Data STL ABSTRACTION Provider, Abstract 05/31/2024 External Device Data STL ABSTRACTION Provider, Abstract 05/17/2024 External Device Data STL ABSTRACTION Provider, Abstract 05/12/2024 Abstract [facility] Oncology and Hematology [facility] [address] [place] [address] Jez Crooks MD 05/10/2024 Telephone [facility] Oncology and [facility] [address] [place] [address] Jez Crooks MD Dental Clearance from Last 3 Months Family History Medical History Relation Name Comments No Known Problems Brother Heart Disease Father Lung Cancer Father Diabetes Mother Heart Disease Mother Diabetes Sister No Known Problems Son 1 No Known Problems Son 2 No Known Problems Son 3 Relation Name Status Comments Brother Alive Father Mother Alive Sister Alive Son 1 Alive Son 2 Alive Son 3 Alive Social History Tobacco Use Types Packs/Day Years Used Date Smoking Tobacco: Former Cigarettes Smokeless Tobacco: Never Tobacco Cessation:Counseling Given: Not Answered Alcohol Use Standard Drinks/Week Comments Not Currently 0 (1 standard drink = 0.6 oz pur e alcohol) Comments Unknown Sex and Gender Information Value Date Recorded Sex Assigned at Not on file Legal Sex Female 9:33 AM CDT Gender Identity Not on file Sexual Orientation Not on file Last Filed Vital Signs Vital Sign Reading Time Taken Comments Blood Pressure 117/83 04/11/2024 1:11 PM DORMITORY COUNSELOR Pulse 90 04/11/2024 1:11 PM DORMITORY COUNSELOR Temperature 36.9 C (98.4 F) 04/11/2024 1:11 PM DORMITORY COUNSELOR Respiratory Rate 16 04/11/2024 1:11 PM DORMITORY COUNSELOR Oxygen Saturation 97% 04/11/2024 1:11 PM DORMITORY COUNSELOR Inhaled Oxygen Concentration - - Weight 83.5 kg (184 lb) 04/11/2024 1:11 PM DORMITORY COUNSELOR Height 162.6 cm (5' 4 ) 07/02/2022 9:49 AM CDT Body Mass Index 31.58 07/02/2022 9:49 AM CDT Plan of Treatment Upcoming Encounters Date Type Department Care Team (Late st Contact Info) Description 08/10/2024 11:45 AM CDT Office Visit [facility] Oncology and Hematology - [place] [address] [facility] [address] [place] [address] Jez Crooks MD [address] [facility] [address] [place] [address] Health Maintenance Due Date Last Done Comments Pre-Diabetes and Diabetes Screening 1974 DTAP/TDAP/TD VACCINES (1 - Tdap) 1993 HEPATITIS B VACCINES (1 of 3 - 19+ 3-dose series) 1993 FIT-DNA Q 3 years 07/29/2019 FIT/FOBT Q 1 year 07/29/2019 Flex Sig/CT Colonography Q 5 years 07/29/2019 INFLUENZA VACCINE (#1) 2023 BREAST CANCER SCREENING 02/05/2024 02/05/20 23, 01/25/2023, 01/25/2023, Additional history exists PAP SMEAR 06/09/2025 06/09/2022, 05/27, 04/25/2021 CERVICAL CANCER SCREENING 06/10/2027 HPV/Cotest (21-29) 06/10/2027 06/09/2022 HPV/Cotest (30-65) 06/10/2027 06/09/2022 COLORECTAL SCREENING 06/28/2031 06/27/2021, 06/20/19 22 Colorectal Cancer Screening 06/28/2031 Insurance MEDICARE PART A AND B MEDICAID [place] Care Teams Scientific Laboratory Supervisor Relationship Specialty Start Date End Date Maury Smith MD [address] [place] [address] PCP - General Family Practice 07/23/22
--- OUTSIDE RECORDS SUMMARY | 2024-08-01 09:20 | XMS_ITS | Referral Summary ---
Author Organization [facility] Address [address] [place] [address] Care Team Providers Care Direct Mail Clerk Name Role Phone Maury Smith MD Primary Care Provide r Dayne Humphrey MD Unavailable [phone] Allergies Active Allergy Reactions Criticality Noted [...] bladder 12/21/2022 Anxiety 12/14/2022 Asthma 12/14/2022 Cancer 12/14/2022 Overview (12/14/2022): bladder GERD (gastroesophageal reflux [...] How often do you attend chur or hoahaoism services? More than 4 times per year 12/22/2022 Do you belong to any clubs o r organizations such as caodaism groups, unions, fraternal or athletic groups, or [...] place to sleep or slept in a custodial (including now)? No 12/22/2022 Personal Safety Answer [...] 112 12/26/2022 8:50 AM CDT Temperature 37.1 C (98.7 F) 12/26/2022 5:17 AM CDT Respiratory Rate 17 12/26/2022 5:17 AM CDT Oxygen Saturation 94% 12/26/2022 5:17 AM CDT Inhaled Oxygen Concentration - - Weight 83.8 kg (184 lb 11.9 oz) 12/21/2022 6:38 AM CDT Height 162.6 cm (5' 4 ) 12/21/2022 6:38 AM CDT Body Mass Index 31.71 12/21/2022 6:38 AM CDT Plan of Treatment Not on file Medical Devices Implanted Type Area Agricultural Engineering Technician Device Identifier Shelf Expiration Date Model / Serial / Lot [employer] Cecilia 7fr 80cm Open Tip Luer Lock Adapter [employer] Graduate Straight Latex Free [id number] - [id number] Implanted:Qty: 2 on 12/21/2022 by Dayne Humphrey MD at [facility] Stent Bilateral: Ureter [employer] Cecilia 09/27/2026 [id number] / / [id number] Insurance [employer] MEDICARE [facility] MEDICARE [facility] Address: [address] [address] [place] [address] [facility] MEDICARE MEDICARE [employer] Advance Directives For more information, please contact: [phone] * Full Code (Latest Code Status on File) Date Activated Date Inactivated Comments 12/21/2022 4:32 PM 12/26/2022 4:50 PM Care Teams Direct Mail Clerk Relationship Specialty Start Date End Date Maury Smith MD [address] [place] [address] PCP - General Family Medicine 12/08/22 [place] [address] [place] [address] Consulting Physician Urology 12/26/22
--- OUTSIDE RECORDS SUMMARY | 2024-08-01 09:20 | XMS_ITS | Clinical Summary ---
Author Organization [facility] Address [facility] [place] [address] Care Team Providers Care Kiln Burner Name Role Phone Maury Smith MD Primary Care Provider [phone] Allergies Active Allergy Reactions Criticality Noted Date [...] o bone Heart Disease Father Hypertension Father [place] Father Diabetes Mother Hypertension Mother Hypertension Sister Relation Status Comments Brother Alive Father Mother Alive Sister Alive Son 1 Alive Son 2 Alive Son 3 Alive Social History Tobacco Use Types Packs/Day Years Used Date Smoking Tobacco: Former Cigarettes 2018 Smokeless Tobacco: Never Tobacco Cessation:Counseling Given: Not Answered Comments:Uses a VAPE currently Alcohol Use Standard Drinks/Week Comments Not Currently 0 (1 standard drink = 0.6 oz pur e alcohol) Comments No Sex and Gender Information Value Date Recorded Sex Assigned at Not on file Legal Sex Female 2:32 PM STORAGE SPECIALIST Gender Identity Not on file Sexual Orientation Not on file Last Filed Vital Signs Vital Sign Reading Time Taken Comments Blood Pressure 142/80 06/18/2022 3:35 PM CDT Pulse 99 06/18/2022 3:35 PM CDT Temperature 36.8 C (98.2 F) 06/18/2022 3:35 PM CDT Respiratory Rate 16 06/18/2022 3:35 PM CDT [...] Vaccine ( - 2023-2 5 season) 2023 Pneumococcal Vaccine: 50+ Ye ars (1 of 1 - PCV) 2024 Zoster Vaccines (1 of 2) 2024 Cervical Cancer Screening Pa p Smear (Age [...] this topic Insurance MEDICARE MEDICAID Care Teams Kiln Burner Relationship Specialty Start Date End Date Maury Smith MD [address] [place] [address] PCP - General FAMILY PRACTICE 06/03/22
--- OUTSIDE RECORDS SUMMARY | 2024-08-01 09:20 | XMS_ITS | Clinical Summary ---
Author Organization [facility] Address [address] [facility], [place] [address] Phone Care Team Providers Care Manager Of Investigations Name Role Phone Maury Smith MD Primary Care Provider Allergies Active Allergy Reactions Criticality Noted Date [...] Comments Blood Pressure 142/86 02/05/2017 10:47 AM WORK COUNSELOR Pulse 96 02/05/2017 10:47 AM WORK COUNSELOR Temperature 36.7 C (98 F) 02/05/2017 10:47 AM WORK COUNSELOR Respiratory Rate 16 02/05/2017 10:47 AM WORK COUNSELOR Oxygen Saturation 99% 02/05/2017 10:47 AM WORK COUNSELOR Inhaled Oxygen Concentration - - Weight 68 [...] Procedure Name Priority Date/Time Associated Diagnosis Comments [facility] SCREENING BILATERAL DIGITAL W CAD Routine 03/11/2016 9:08 AM WORK COUNSELOR Visit for screening mammogram from Last 3 Months or Most Recently Relevant to Health Maintenance Results * MISTY SCREENING BILATERAL DIGITAL W CAD (03/11/2016 9:08 AM WORK COUNSELOR) Anatomical Region Laterality Modality breast Bilateral Mammography 03/11/2016 8:52 AM WORK COUNSELOR Narrative 03/11/2016 3:31 PM WORK COUNSELOR - MISTY SCREENING BILATERAL DIGITAL W CAD [...] made to exams dated: 08/03/2014 and 01/22/2011 [facility]. BREAST TISSUE:The tissue of both breasts is [...] exam. Electronically signed by: Milo stein/penrad:03/11/2016 12:15:44 Chemical Machine Tender: Charlene Cruz(Gabbi), [facility] letter sent: Normal Exam Reading location: [facility] BI-RADS: 1 Negative Procedure Note Milo Dacosta [...] made to exams dated: 08/03/2014 and 01/22/2011 [facility]. BREAST TISSUE:The tissue of both breasts is [...] exam. Electronically signed by: Milo Dacosta M.D. [email or web address]/[email or web address]:03/11/2016 12:15:44 Chemical Machine Tender: Charlene Cruz(Gabbi), [facility] letter sent: Normal Exam Reading location: [facility] BI-RADS: 1 Negative us Maury Smith MD IMG MAMMO ORDERABLES Final Result from Last 3 Months or Most Recently Relevant to Health Maintenance Care Teams Manager Of Investigations Relationship Specialty Start Date End Date Maury Smith MD [address] [place] [address] PCP - General Pediatrics 05/03/15
--- OUTSIDE RECORDS SUMMARY | 2024-08-01 09:20 | XMS_ITS | Clinical Summary ---
Author Organization [facility] Address [address] [place] [address] Care Team Providers Care Header Boss Name Role Phone Maury Smith MD Primary Care Provide r Dayne Humphrey MD Unavailable [phone] Allergies Active Allergy Reactions Criticality Noted [...] History Medical History Date Comments Hypertension Cancer (HCC) bladder GERD (gastroesophageal reflux disease) Asthma [...] How often do you attend chur or protestant services? More than 4 times per year 12/22/2022 Do you belong to any clubs o r organizations such as sikh groups, unions, fraternal or athletic groups, or [...] place to sleep or slept in a correction (including now)? No 12/22/2022 Personal Safety Answer [...] Depression Screening 1974 Hepatitis C Screening 1974 DTaP/Tdap/Td Vaccine (1 - Tdap) 1985 Hepatitis B Screening 1992 Regular Well Visit/Exam 18-64 1992 Pneumococcal vaccine <65 (1 of 2 - PCV) 1993 Breast Cancer Screening-Mammogram 01/26/2024 023, 03/11/2016 Zoster Vaccine (1 of 2) 2024 Influenza Vaccine (Season Ended) 2024 Medical Devices Implanted Type Area Real Estate Lawyer Device Identifier Shelf Expiration Date Model / Serial / Lot [place] [employer] App Cecilia 7fr 80cm Open Tip Luer Lock Adapter Guidewire Graduate Straight Latex Free 160-210 - [id number] Implanted:Qty: 2 on 12/21/2022 by Dayne Humphrey MD at [facility] Stent Bilateral: Ureter [place] Scientific Cecilia 09/27/2026 [id number] / / [id number] [place] [address] MEDICARE [facility] MEDICARE [facility] MEDICARE MEDICARE IDPA Advance Directives For more information, please contact: [phone] * Full Code (Latest Code Status on File) Date Activated Date Inactivated Comments 12/21/2022 4:32 PM 12/26/2022 4:50 PM Care Teams Header Boss Relationship Specialty Start Date End Date Maury Smith MD [address] [place] [address] PCP - General Family Medicine 12/08/22 [place] [address] [place] [address] Consulting Physician Urology 12/26/22
== END 2024-08-01 08:50 | disposition home or self-care (01) ==
LOC: CHSIMG 08:51
PROVIDERS: PCP Family Medicine; Visit Provider Internal Medicine Hematology & Oncology
DX: C67.9 Malignant neoplasm of bladder, unspecified (principal); Z90.49 Acquired absence of other specified parts of digestive tract
CPT/HCPCS: 74177; Q9967

== ENCOUNTER 2024-08-10 11:03 | Outpatient (CLI) | payer MEDICARE, MEDICAID, SELFPAY ==
--- OUTSIDE RECORDS SUMMARY | 2024-08-10 11:08 | XMS_ITS | Clinical Summary ---
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
--- OUTSIDE RECORDS SUMMARY | 2024-08-10 11:08 | XMS_ITS | Clinical Summary ---
[facility] Address [address] [facility] [place] [address] Care Team Providers Care Account Management Assistant Name Role Phone Maury Smith MD Primary Care Provider [phone] Allergies Active Allergy Reactions Criticality Noted Date Comments Iodinated Contrast Media Hives High 07/02/2022 Naproxen Hives High 07/02/2022 Sulfa (Sulfonamide Antibiotics) Hives High 0408/2022 Medications cyclobenzaprine (FLEXERIL) 10 mg tablet TAKE [...] External Device Data STL ABSTRACTION Provider, Abstract from Last 3 Months Family History Medical [...] Comments Blood Pressure 117/83 04/11/2024 1:11 PM INSTRUCTIONAL DESIGN MANAGER Pulse 90 04/11/2024 1:11 PM INSTRUCTIONAL DESIGN MANAGER Temperature 36.9 C (98.4 F) 04/11/2024 1:11 PM INSTRUCTIONAL DESIGN MANAGER Respiratory Rate 16 04/11/2024 1:11 PM INSTRUCTIONAL DESIGN MANAGER Oxygen Saturation 97% 04/11/2024 1:11 PM INSTRUCTIONAL DESIGN MANAGER Inhaled Oxygen Concentration - - Weight 83.5 kg (184 lb) 04/11/2024 1:11 PM INSTRUCTIONAL DESIGN MANAGER Height 162.6 cm (5' 4 ) 07/02/2022 9:49 AM CDT Body Mass Index 31.58 07/02/2022 9:49 AM CDT Plan of Treatment Upcoming Encounters Date Type Department Care Team (Late st Contact Info) Description 08/10/2024 11:45 AM CDT Office Visit [facility] Oncology and Hematology - [address] [place] [address] Jez Crooks MD [address] [facility] [address] [place] [address] Health Maintenance Due Date Last Done Comments Pre-Diabetes and Diabetes Screening 1974 DTAP/TDAP/TD VACCINES (1 - Tdap) 1993 HEPATITIS B VACCINES (1 of 3 - 19+ 3-dose series) 1993 FIT-DNA Q 3 years 07/29/2019 FIT/FOBT Q 1 year 07/29/2019 Flex Sig/CT Colonography Q 5 years 07/29/2019 INFLUENZA VACCINE (#1) 2023 BREAST CANCER SCREENING 02/05/2024 02/05/20 23, 01/25/2023, 01/25/2023, Additional history exists ZOSTER VACCINE (1 of 2) 2024 PAP SMEAR 06/09/2025 06/09/2022, 05/27, 04/25/2021 CERVICAL CANCER SCREENING 06/10/2027 HPV/Cotest (21-29) 06/10/2027 06/09/2022 HPV/Cotest (30-65) 06/10/2027 06/09/2022 COLORECTAL SCREENING 06/28/2031 06/27/2021, 06/20/19 Colorectal Cancer Screening 06/28/2031 Insurance MEDICARE PART A AND B MEDICAID [place] Care Teams Account Management Assistant Relationship Specialty Start Date End Date Maury Smith MD [address] [place] [id number] PCP - General Family Practice 07/23/22
--- OUTSIDE RECORDS SUMMARY | 2024-08-10 11:08 | XMS_ITS | Referral Summary ---
Author Organization [facility] Address [address] [place] [address] Care Team Providers Care Liner Assembler Name Role Phone Maury Smith MD Primary Care Provide r Dayne Humphrey MD Unavailable [phone] Allergies Active Allergy Reactions Criticality Noted [...] How often do you attend chur or bahai services? More than 4 times per year 12/22/2022 Do you belong to any clubs o r organizations such as holiness groups, unions, fraternal or athletic groups, or [...] place to sleep or slept in a usp (including now)? No 12/22/2022 Personal Safety Answer [...] on file Medical Devices Implanted Type Area Business Analyst Device Identifier Shelf Expiration Date Model / Serial / Lot [employer] Cecilia 7fr 80cm Open Tip Luer Lock Adapter Guidewire Graduate Straight Latex Free 160210 - [id number] Implanted:Qty: 2 on 12/21/2022 by Dayne Humphrey MD at [facility] Stent Bilateral: Ureter [place] [employer] Cecilia 09/27/2026 [id number] / / [id number] Insurance [place] MEDICARE [facility] MEDICARE [facility] Address: [address] [address] [place] [address] [facility] MEDICARE MEDICARE IDPA Advance Directives For more information, please contact: [phone] * Full Code (Latest Code Status on File) Date Activated Date Inactivated Comments 12/21/2022 4:32 PM 12/26/2022 4:50 PM Care Teams Liner Assembler Relationship Specialty Start Date End Date Maury Smith MD [address] [place] [address] PCP - General Family Medicine 12/08/22 [place] [address] [place] [address] Consulting Physician Urology 12/26/22
--- OUTSIDE RECORDS SUMMARY | 2024-08-10 11:08 | XMS_ITS | Data Portability ---
Author Organization [facility] Address [address] [place] [address] Care Team Providers Care Program Director Scouting Name Role Phone JOSE A VISH Primary Care Provider [phone] Assessment Encounter Date Assessment Date Assessment LastModified by Organization Details LastModified Time 02/11/2022 02/11/2022 reviewed labs per PCP- scanned into chart. elevated FSH, normal CBC and other hormone labs. mammo UTD WWE due in Mar, will schedule doing well on current Hrt. we discussed RBA to HRT. pt aware of risks. Discussed health risks of smoking/vapin g and encouraged cessation. [email or web address] Not available 02/11/2022 14:12:04 06/09/2022 06/09/2022 healthy female exam/menopaus e patient declines std testing pap done (LEEP 2018) mammogram due in nov, 10 years dexa none Encouraged weight bearing exercise and 1500mg daily of Calcium with Vitamin D FU 1 year or prn [email or web address] Not available 06/10/2022 15:21:28 Plan of Treatment Reminders Order Date Submit Date Provider Last Modified By Organization Details Last Modified Time Details Appointments None recorded. Lab None recorded. Referral None recorded. Procedures None recorded. Surgeries None recorded. Imaging None recorded. Medication Orders estradiol 0.5 mg tablet 2022 023 [employer] [id number], [address] [place], [address], 13:04:47 progesteron e micronized 200 mg capsule 2022 023 [employer] [id number], [address] [place], [address], 13:04:47 Patient TargetsNo targets recorded. Patient InstructionsNo [...] as clini abdiaziz arreola nted. Not Available [facility] (Lab) [address] [facility], [place], [address], 06/12/2022 12:57:36 01/26/20 23 01/25/2023 MAMMO , scree zoie, bilat eral No observ ation record ed. [email or web address] [facility] [address] [place], [address], 04/01/2023 16:56:53 Result Notes None recorded. Problems Name Problem SNOMED Code Status Onset Date Resolution Date Notes Provider Name and Address Organization Details Recorded Time Hormone replaceme nt therapy Active 2021 Olivia Manuel MD [address], [place], [address], [facility] 2 13:47:09 Menopausa l symptom 55142660 Active 2021 Olivia Manuel MD [address], [place], [address], [facility] 2 13:47:11 Degenerat ion of intervert ebral disc 39503956 Active 2021 Olivia Manuel MD [address], [place], [address], [facility] 2 14:06:12 Fibromyal soraida 420849512 Active 2021 Olivia Manuel MD [address], [place], [address], [facility] 2 14:06:23 Gastroeso phageal reflux disease 224907966 Active 2021 Olivia Manuel MD [address], [place], [address], [facility] 2 14:07:08 History of loop electrosu rgical excision procedure 290891390724 02 Active 2021 and 2017, normal paps since 2018 Olivia Manuel MD [address], [place], [address], [facility] 2 14:07:45 Electroni c cigarette user 835768908 Active 2021 Olivia Manuel MD [address], [place], [address], [facility] 2 14:11:01 Malignant neoplasm of urinary bladder 132708575 Active 2022 Olivia Manuel MD [address] [place], [address], [facility] 3 13:02:19 Problem Notes None recorded. Procedures Surgical History Date Name Laterality Status Provider Name and Address Organization Details Recorded Time 11/28/19 22 Date of Last Mammogram completed [facility] 02/11/2022 09:33:46 06/28/19 22 Date of Last Colonoscopy completed [facility] 02/11/2022 12:01:10 04/03/19 22 Date of Last Pap Smear completed [facility] 02/11/2022 09:33:29 03/29/19 03 procedure on ulna completed [facility] 02/11/2022 12:18:26 03/29/18 97 loop electrosurgical excision procedure completed [facility] 02/11/2022 11:59:41 Tubal Ligation completed [facility] 02/11/2022 09:30:40 cholecystectomy completed [facility] 02/11/2022 09:30:57 Imaging Results Imaging Date Name Status LastModified by Organiz ation Details LastModified Time 01/25/2023 MAMMO, screening, bilateral completed [email or web address] [facility] [address] [place], [address], 04/01/2023 16:56:53 Procedure Notes None recorded. Medical Equipment None Reported. Allergies Allergen ID Allergen Name Allergen Category Reaction Reaction Severity Criticality Documentation Date Start Date Code Code System Note Provider Name and Address Organization Details Recorded Time tramadol medicatio n Not available Not available Not available 02/11/2022 28808 RxNorm [facility] 09:29:11 75740 Substance with sulfonami de structure and antibacte rial mechanism of action (substanc e) medicatio n Not available Not available Not available 02/11/2022 42630 8003 SNOMED Augustina harley, [facility] 2 09:29:17 77547 naproxen medicatio n Not available Not available Not available 02/11/2022 7258 RxNorm Augustina Dillard [facility], [facility] 2 09:29:26 14173 iodine medicatio n Not available Not available Not available 02/11/2022 5933 RxNorm Augustina Dillard [facility], [facility] 2 09:29:47 35147 Flagyl medicatio n Not available Not available Not available 02/11/202231434 6 RxNorm Augustina harley, [facility] 2 09:29:52 Medications Name Sig Start [...] Updated DateTime 02/11/2022 160.02 cm 33.1 kg/m2 57257.77 g 132 mm[Hg] 86 mm[Hg] Augustina Dillard [facility] 2 11:58:42 Date Recorded Body height Body mass index (BMI) Body weight Systolic blood pressure Diastolic blood pressure Provider Name and Address Organization Details Last Updated DateTime 06/09/2022 160.02 cm 33.3 kg/m2 02134.37 g 142 mm[Hg] 81 mm[Hg] [facility] 3 12:38:59 Social History Question Answer Notes LastModified by [employer] Details LastModified Time Tobacco Smoking Status Current Every Day Smoker Augustina Dillard [facility] 02/11/2022 12:22:42 Have You Ever Been Counseled For Unhealthy Alcohol Use? No Information not available 02/11/2022 Has Tobacco Cessation Counseling Been Provided? No Information not available 02/11/2022 Sex: Unknown Functional Status Question Answer Note LastModified by [employer] Details LastModified Time Do you or have you ever used any other forms of tobacco or nicotine? No Information not available 02/11/2022 What is your level of alcohol consumption? Occasional Information not available 02/11/2022 Mental Status None recorded. Family History Relationship [...] SNOMED-CT Code Diagnosis ICD10 Code Diagnosis Note [id number] Olivia Manuel MD [facility] [address] [address] 02/11/2022 11:31:01 02/11/2022 14:41:24 Hormone replacement therapy 977904826 Z79.890 Menopausal symptom 97013 002 N95.1 Transition of care 73433 79692 105 Z75.8 History of loop electrosurgical excision procedure 2671764890 9102 Z98.890 Electronic cigarette user 080320331 Z72.89 [id number] Olivia Manuel MD [facility] [address] [address] 06/09/2022 12:09:46 06/10/2022 15:39:54 Malignant neoplasm of urinary bladder 192972072 C67.9 Gynecologi c examination 62274110 Z01.419 Z11.51 Hormone re placement therapy 664284551 Z79.890 Health Concerns Section Related Observation LastModified by Organization Detai ls LastModified Time None Recorded Concern Status LastModified by Organization Details LastModified Time None Recorded Advance Directives Directive None Recorded Payers Encounter Date Sequence Insurance Name Policy Number Policy Nayak Covered Member ID Nayak Member ID Guarantor Name 02/11/2022 2 [place] [employer] Tory Hearty [id number] Tory Hearty 02/11/2022 1 [place] Tory D Hearty [id number] Tory Hearty 06/09/2022 2 [place] [employer] Tory Hearty [id number] Tory Hearty 06/09/2022 1 [place] Tory D Hearty [id number] Tory Hearty Notes Date Note Type Note [...] doing much better but wanted a new rn obgyn. She now feels fat but happy, is sleeping, and mood much improved. Concerns: last WWE: pap 03/2021. history of LEEPs 1996 and 2017, paps all normal since. [email or web address] 11/2021 Depression:deniesv apes, quit smoking Domestic violence:denies Olivia Manuel MD [address], [place], [address], [facility] 02/11/2022 14:12:40 06/09/2022 text/html Patient [...] domestic violence-denies tobacco-vapes concerns-none Olivia Manuel MD [address], [place], [address], [facility] 06/10/2022 15:21:52 OBGyn Episode Ob Episode Information Episode Created Date Number of Fetuses Patient Bloodtype Patient rh Status Prepregnancy Weight lbs Domestic Partner Domestic Partner Phone Father Name Insecticide Supervisor Status 02/12/20 22 1 CLOSED Fetus Data First Name Last Name Admitted to NICU Weight (g) Sex Living Outcome Pediatric Complications Fetus ID Race Codes Race Delivery Type 3288.54 2 M Full Term 74911 Vaginal Delivery Demarcus Calculation Initial Demarcus Date [...] Domestic Partner Domestic Partner Phone Father Name Insecticide Supervisor Status 02/12/20 22 1 CLOSED Fetus Data First Name Last Name Admitted to NICU Weight (g) Sex Living Outcome Pediatric Complications Fetus ID Race Codes Race Delivery Type 3373.36 3704 M Full Term 32271 Vaginal Delivery Demarcus Calculation Initial Demarcus Date [...] Domestic Partner Domestic Partner Phone Father Name Insecticide Supervisor Status 02/12/20 22 1 CLOSED Fetus Data First Name Last Name Admitted to NICU Weight (g) Sex Living Outcome Pediatric Complications Fetus ID Race Codes Race Delivery Type 3288.54 2 M Full Term 34878 Vaginal Delivery Demarcus Calculation Initial Demarcus Date [...]
--- OUTSIDE RECORDS SUMMARY | 2024-08-10 11:08 | XMS_ITS | Clinical Summary ---
Author Organization [facility] Address [address] [facility], [place] [address] Phone Care Team Providers Care Unit Secy Name Role Phone Maury Smith MD Primary [...] Comments Blood Pressure 142/86 02/05/2017 10:47 AM ASTRONOMY TEACHER Pulse 96 02/05/2017 10:47 AM ASTRONOMY TEACHER Temperature 36.7 C (98 F) 02/05/2017 10:47 AM ASTRONOMY TEACHER Respiratory Rate 16 02/05/2017 10:47 AM ASTRONOMY TEACHER Oxygen Saturation 99% 02/05/2017 10:47 AM ASTRONOMY TEACHER Inhaled Oxygen Concentration - - Weight 68 [...] Procedure Name Priority Date/Time Associated Diagnosis Comments [facility] SCREENING BILATERAL DIGITAL W CAD Routine 03/11/2016 9:08 AM ASTRONOMY TEACHER Visit for screening mammogram from Last 3 Months or Most Recently Relevant to Health Maintenance Results * MISTY SCREENING BILATERAL DIGITAL W CAD (03/11/2016 9:08 AM ASTRONOMY TEACHER) Anatomical Region Laterality Modality breast Bilateral Mammography 03/11/2016 8:52 AM ASTRONOMY TEACHER Narrative 03/11/2016 3:31 PM ASTRONOMY TEACHER - MISTY SCREENING BILATERAL DIGITAL W CAD [...] to exams dated: 08/03/2014 and 01/22/2011 [facility]. BREAST TISSUE:The tissue of both breasts [...] exam. Electronically signed by: Milo stein/penrad:03/11/2016 12:15:44 Finisher Wallboard And Plasterboard: Charlene Cruz(Gabbi), [facility] letter sent: Normal Exam Reading location: [facility] BI-RADS: 1 Negative Procedure Note Milo [...] made to exams dated: 08/03/2014 and 01/22/2011 [facility]. BREAST TISSUE:The tissue of both [...] signed by: Milo Dacosta M.D. mmshanna/[email or web address]:03/11/2016 12:15:44 Finisher Wallboard And Plasterboard: Charlene Cruz(Gabbi), [facility] letter sent: Normal Exam Reading location: [facility] BI-RADS: 1 Negative us Maury Smith MD IMG MAMMO ORDERABLES Final Result from Last 3 Months or Most Recently Relevant to Health Maintenance Care Teams Unit Secy Relationship Specialty Start Date End Date Maury Smith MD [address] [place] [address] PCP - General Pediatrics 05/03/15
--- OUTSIDE RECORDS SUMMARY | 2024-08-10 11:08 | XMS_ITS | Clinical Summary ---
Author Organization [facility] Address [address] [place] [address] Care Team Providers Care Kitchen Worker Name Role Phone Maury Smith MD Primary Care Provide r Dayne Humphrey MD Unavailable [phone] Allergies Active Allergy Reactions Criticality Noted [...] How often do you attend chur or islam services? More than 4 times per year 12/22/2022 Do you belong to any clubs o r organizations such as moravian groups, unions, fraternal or athletic groups, or [...] Ended) 2024 Medical Devices Implanted Type Area Operational Review Sergeant Device Identifier Shelf Expiration Date Model / Serial / Lot [place] Mimetas Cecilia 7fr 80cm Open Tip Luer Lock Adapter Guidewire Graduate Straight Latex Free 160-210 - [id number] Implanted:Qty: 2 on 12/21/2022 by Dayne Humphrey MD at [facility] Stent Bilateral: Ureter [place] [employer] Cecilia 09/27/2026 [id number] / / [id number] [place] [address] MEDICARE [facility] MEDICARE [facility] MEDICARE MEDICARE IDPA Advance Directives For more information, please contact: [phone] * Full Code (Latest Code Status on File) Date Activated Date Inactivated Comments 12/21/2022 4:32 PM 12/26/2022 4:50 PM Care Teams Kitchen Worker Relationship Specialty Start Date End Date Maury Smith MD [address] [place] [address] PCP - General Family Medicine 12/08/22 [place] [address] [place] [address] Consulting Physician Urology 12/26/22
[2024-08-10 11:28] LABS: Blood Urea Nitrogen 16 mg/dL (8-26); Carbon Dioxide 24 mmol/L (22-30); Chloride 108 mmol/L (98-109); Estimated Glomerular Filt Rate > 60; Glucose 124 mg/dL (70-105); Ionized Calcium (POC) 0.88 mmol/L (1.11-1.31); Potassium 4.3 mmol/L (3.5-4.9); Sodium 136 mmol/L (138-146)
[2024-08-10 11:28] LABS: Basophils Percent Auto 0.3 % (0.2-1.2); Eosinophils Percent Auto 0.6 % (0-4.4); Hematocrit 41.3 % (37.0-47.0); Hemoglobin 14.1 g/dL (12.0-15.0); Immature Granulocyte Absolute 0.03 K/mm3 (0.00-0.031); Immature Granulocyte Percent A 0.4 % (0-0.5); Immature Platelet Fraction Pct 2.7 % (0.9-11.2); Lymphocytes Percent Auto 40.2 % (18.3-44.2); Mean Corpuscular HGB Conc 34.1 g/dl (32-36); Mean Corpuscular Hemoglobin 33.1 pg (26-34); Mean Corpuscular Volume 96.9 fl (80-100); Mean Platelet Volume 10.5 fl (7.4-10.4); Monocytes Absolute Auto 0.4 K/mm3 (0.1-0.6); Monocytes Percent Auto 5.3 % (2.6-8.5); Neutrophils Absolute Auto 3.7 K/mm3 (1.3-6.7); Neutrophils Percent Auto 53.2 % (45.5-73.1); Platelet Count Result 48 k/mm3 (150-375); Red Blood Count 4.26 M/mm3 (4.2-5.4)
== END 2024-08-10 11:04 | disposition home or self-care (01) ==
LOC: ANHLAB 11:05
PROVIDERS: PCP Family Medicine; Visit Provider Internal Medicine Hematology & Oncology
DX: C67.9 Malignant neoplasm of bladder, unspecified (principal)
CPT/HCPCS: 36415; 80047; 80053; 85025; 85055

== ENCOUNTER 2024-08-16 11:43 | Outpatient (CLI) | payer MEDICARE, SELFPAY ==
--- OUTSIDE RECORDS SUMMARY | 2024-08-16 11:57 | XMS_ITS | Clinical Summary ---
Author Organization [facility] Address [address] [place] [address] Care Team Providers Care Bag Valver Name Role Phone Maury Smith MD Primary Care Provide r Dayne Humphrey MD Unavailable [phone] Allergies Active Allergy Reactions Criticality Noted [...] How often do you attend chur or mormonism services? More than 4 times per year 12/22/2022 Do you belong to any clubs o r organizations such as sabianist groups, unions, fraternal or athletic groups, or [...] place to sleep or slept in a retirement (including now)? No 12/22/2022 Personal Safety Answer [...] Ended) 2024 Medical Devices Implanted Type Area Cutting Table Operator Device Identifier Shelf Expiration Date Model / Serial / Lot [place] MeinProspekt Cecilia 7fr 80cm Open Tip Luer Lock Adapter Guidewire Graduate Straight Latex Free 160-210 - [id number] Implanted:Qty: 2 on 12/21/2022 by Dayne Humphrey MD at [facility] Stent Bilateral: Ureter [place] [employer] Cecilia 09/27/2026 [id number] / / [id number] [place] [address] [place] [address] MEDICARE [facility] MEDICARE [facility] MEDICARE MEDICARE IDPA Advance Directives For more information, please contact: [phone] * Full Code (Latest Code Status on File) Date Activated Date Inactivated Comments 12/21/2022 4:32 PM 12/26/2022 4:50 PM Care Teams Bag Valver Relationship Specialty Start Date End Date Maury Smith MD [address] [place] [address] PCP - General Family Medicine 12/08/22 [place] [address] [place] [address] Consulting Physician Urology 12/26/22
--- OUTSIDE RECORDS SUMMARY | 2024-08-16 11:57 | XMS_ITS | Data Portability ---
Author Organization [facility] [place] Address [address] [place] [address] Care Team Providers Care Band Splicer Name Role Phone JOSE A VISH Primary Care Provider [phone] Assessment Encounter Date Assessment Date Assessment LastModified by Organization Details LastModified Time 02/11/2022 02/11/2022 reviewed labs per PCP- scanned into chart. elevated FSH, normal CBC and other hormone labs. mammo UTD WWE due in Mar, will schedule doing well on current Hrt. we discussed RBA to HRT. pt aware of risks. Discussed health risks of smoking/vapin g and encouraged cessation. [email or web address] Not available 02/11/2022 14:12:04 06/09/2022 06/09/2022 healthy female exam/menopaus e patient declines std testing pap done (LEEP 2018) mammogram due in nov, 10 years dexa none Encouraged weight bearing exercise and 1500mg daily of Calcium with Vitamin D FU 1 year or prn [email or web address] Not available 06/10/2022 15:21:28 Plan of Treatment Reminders Order Date Submit Date Provider Last Modified By Organization Details Last Modified Time Details Appointments None recorded. Lab None recorded. Referral None recorded. Procedures None recorded. Surgeries None recorded. Imaging None recorded. Medication Orders estradiol 0.5 mg tablet 2022 023 [id number], [address] [place], [address], 13:04:47 progesteron e micronized 200 mg capsule 2022 023 [id number], [address] [place], [address], 13:04:47 Patient TargetsNo targets recorded. Patient InstructionsNo [...] as clini abdiaziz arreola nted. Not Available [facility] (Lab) [address] [facility], [place], [address], 06/12/2022 12:57:36 01/26/20 23 01/25/2023 MAMMO , scree zoie, bilat eral No observ ation record ed. [email or web address] Formerly [facility] [address] [place], [address], 04/01/2023 16:56:53 Result Notes None recorded. Problems Name Problem SNOMED Code Status Onset Date Resolution Date Notes Provider Name and Address Organization Details Recorded Time Hormone replaceme nt therapy Active 2021 Olivia Manuel MD [address], [place], [address], [facility] 2 13:47:09 Menopausa l symptom 61418881 Active 2021 Olivia Manuel MD [address], [place], [address], [facility] 2 13:47:11 Degenerat ion of intervert ebral disc 07664911 Active 2021 Olivia Manuel MD [address], [place], [address], [facility] 2 14:06:12 Fibromyal soraida 502457732 Active 2021 Olivia Manuel MD [address], [place], [address], [facility] 2 14:06:23 Gastroeso phageal reflux disease 579218288 Active 2021 Olivia Manuel MD [address], [place], [address], [facility] 2 14:07:08 History of loop electrosu rgical excision procedure 527356917834 02 Active 2021 and 2017, normal paps since 2018 Olivia Manuel MD [address], [place], [address], [facility] 2 14:07:45 Electroni c cigarette user 926762580 Active 2021 Olivia Manuel MD [address], [place], [address], [facility] 2 14:11:01 Malignant neoplasm of urinary bladder 682342755 Active 2022 Olivia Manuel MD [address] [place], [address], [facility] 3 13:02:19 Problem Notes None recorded. Procedures Surgical History Date Name Laterality Status Provider Name and Address Organization Details Recorded Time 11/28/19 22 Date of Last Mammogram completed [facility] 02/11/2022 09:33:46 06/28/19 22 Date of Last Colonoscopy completed [facility] 02/11/2022 12:01:10 04/03/19 22 Date of Last Pap Smear completed [facility] 02/11/2022 09:33:29 03/29/19 03 procedure on ulna completed [facility] 02/11/2022 12:18:26 03/29/18 97 loop electrosurgical excision procedure completed [facility] 02/11/2022 11:59:41 Tubal Ligation completed [facility] 02/11/2022 09:30:40 cholecystectomy completed [facility] 02/11/2022 09:30:57 Imaging Results Imaging Date Name Status LastModified by Organiz ation Details LastModified Time 01/25/2023 MAMMO, screening, bilateral completed [email or web address] Former[facility] [address] [place], [address], 04/01/2023 16:56:53 Procedure Notes None recorded. Medical Equipment None Reported. Allergies Allergen ID Allergen Name Allergen Category Reaction Reaction Severity Criticality Documentation Date Start Date Code Code System Note Provider Name and Address Organization Details Recorded Time tramadol medicatio n Not available Not available Not available 02/11/2022 57731 RxNorm [facility] 09:29:11 21998 Substance with sulfonami de structure and antibacte rial mechanism of action (substanc e) medicatio n Not available Not available Not available 02/11/2022 57119 8003 SNOMED Augustina harley, [facility] 2 09:29:17 46963 naproxen medicatio n Not available Not available Not available 02/11/2022 7258 RxNorm Augustina Dillard [facility], [facility] 2 09:29:26 58568 iodine medicatio n Not available Not available Not available 02/11/2022 5933 RxNorm Augustina Dillard [facility], [facility] 2 09:29:47 59387 Flagyl medicatio n Not available Not available Not available 02/11/202297593 6 RxNorm Augustina harley, [facility] 2 09:29:52 Medications Name Sig [...] Updated DateTime 02/11/2022 160.02 cm 33.1 kg/m2 87470.77 g 132 mm[Hg] 86 mm[Hg] Augustina Dillard [facility] 2 11:58:42 Date Recorded Body height Body mass index (BMI) Body weight Systolic blood pressure Diastolic blood pressure Provider Name and Address Organization Details Last Updated DateTime 06/09/2022 160.02 cm 33.3 kg/m2 18453.37 g 142 mm[Hg] 81 mm[Hg] [facility]ina [facility] 3 12:38:59 Social History Question Answer Notes LastModified by Local Matters Details LastModified Time Tobacco Smoking Status Current Every Day Smoker Augustina Dillard [facility] 02/11/2022 12:22:42 Have You Ever Been Counseled For Unhealthy Alcohol Use? No Information not available 02/11/2022 Has Tobacco Cessation Counseling Been Provided? No Information not available 02/11/2022 Sex: Unknown Functional Status Question Answer Note LastModified by Local Matters Details LastModified Time Do you or have [...] (Food, seasonal, environmental ) N Other N Drug/Latex Allergies/Reactions N Breast Cancer N Blood Transfusion N Lung Disease N Dermatologic Disorders N Defects or Inherited Disease N Breast Problem N Gestational Diabetes N Hematologic disorders N Anesthesia Complications N History of STI Y Deep Vein Thrombosis N Polycystic ovary syndrome N Anxiety Disorder N Autoimmune disease N Arthritis Y Polyps N Infertility N History of abnormal pap Y Acid Reflux (GERD) N Cancer Y Varicosities N Stroke N Neurologic/Epilepsy N Endometriosis N High Cholesterol N Headaches N Fibromyalgia Y Kidney Disease N Heart Problems N Thyroid Problems N Kidney or Bladder Problems N GI Problems Y Eating Disorder [...] SNOMED-CT Code Diagnosis ICD10 Code Diagnosis Note [id number] Olivia Manuel MD [place] [address] [address] 02/11/2022 11:31:01 02/11/2022 14:41:24 Hormone replacement therapy 289185892 Z79.890 Menopausal symptom 36587 002 N95.1 Transition of care 41015 76010 105 Z75.8 History of loop electrosurgical excision procedure 6276401827 9102 Z98.890 Electronic cigarette user 153949338 Z72.89 [id number] Olivia Manuel MD [place] [address] [address] 06/09/2022 12:09:46 06/10/2022 15:39:54 Malignant neoplasm of urinary bladder 314299344 C67.9 Gynecologi c examination 88402629 Z01.419 Z11.51 Hormone re placement therapy 073316799 Z79.890 Health Concerns Section Related Observation LastModified by Organization Detai ls LastModified Time None Recorded Concern Status LastModified by Organization Details LastModified Time None Recorded Advance Directives Directive None Recorded Payers Encounter Date Sequence Insurance Name Policy Number Policy Nayak Covered Member ID Nayak Member ID Guarantor Name 02/11/2022 2 [place] [facility] Tory Hearty [id number] Tory Hearty 02/11/2022 1 [place] Tory D Hearty [id number] Tory Hearty 06/09/2022 2 [place] [facility] [place] [place] Tory Hearty [id number] Tory Hearty 06/09/2022 1 [place] Tory D Hearty [id number] Tory Hearty Notes Date Note Type Note [...] doing much better but wanted a new accountant machine processing. She now feels fat but happy, is sleeping, and mood much improved. Concerns: last WWE: pap 03/2021. history of LEEPs 1996 and 2017, paps all normal since. msmmo 11/2021 Depression:deniesv apes, quit smoking Domestic violence:denies Olivia Manuel MD [address], [place], [address], [facility] 02/11/2022 14:12:40 06/09/2022 text/html Patient is [...] concerns-none Olivia Manuel MD [address], [place], [address], [facility] 06/10/2022 15:21:52 OBGyn Episode Ob Episode Information Episode Created Date Number of Fetuses Patient Bloodtype Patient rh Status Prepregnancy Weight lbs Domestic Partner Domestic Partner Phone Father Name Stretching Press Operator Status 02/12/20 22 1 CLOSED Fetus Data First Name Last Name Admitted to NICU Weight (g) Sex Living Outcome Pediatric Complications Fetus ID Race Codes Race Delivery Type 3288.54 2 M Full Term 71093 Vaginal Delivery Demarcus Calculation Initial Demarcus Date [...] Domestic Partner Domestic Partner Phone Father Name Stretching Press Operator Status 02/12/20 22 1 CLOSED Fetus Data First Name Last Name Admitted to NICU Weight (g) Sex Living Outcome Pediatric Complications Fetus ID Race Codes Race Delivery Type 3373.36 3704 M Full Term 76748 Vaginal Delivery Demarcus Calculation Initial Demarcus Date [...] Domestic Partner Domestic Partner Phone Father Name Stretching Press Operator Status 02/12/20 22 1 CLOSED Fetus Data First Name Last Name Admitted to NICU Weight (g) Sex Living Outcome Pediatric Complications Fetus ID Race Codes Race Delivery Type 3288.54 2 M Full Term [id number] Vaginal Delivery Demarcus Calculation Initial Demarcus Date [...]
--- OUTSIDE RECORDS SUMMARY | 2024-08-16 11:57 | XMS_ITS | Clinical Summary ---
Author Organization [facility] Address [address] [facility] [place] [address] Phone Care Team Providers Care Fire Supervisor Name Role Phone Maury Smith MD [...] Comments Blood Pressure 142/86 02/05/2017 10:47 AM EDGE INKER Pulse 96 02/05/2017 10:47 AM EDGE INKER Temperature 36.7 C (98 F) 02/05/2017 10:47 AM EDGE INKER Respiratory Rate 16 02/05/2017 10:47 AM EDGE INKER Oxygen Saturation 99% 02/05/2017 10:47 AM EDGE INKER Inhaled Oxygen Concentration - - Weight 68 [...] Procedure Name Priority Date/Time Associated Diagnosis Comments [facility] SCREENING BILATERAL DIGITAL W CAD Routine 03/11/2016 9:08 AM EDGE INKER Visit for screening mammogram from Last 3 Months or Most Recently Relevant to Health Maintenance Results * MISTY SCREENING BILATERAL DIGITAL W CAD (03/11/2016 9:08 AM EDGE INKER) Anatomical Region Laterality Modality breast Bilateral Mammography 03/11/2016 8:52 AM EDGE INKER Narrative 03/11/2016 3:31 PM EDGE INKER - MISTY SCREENING BILATERAL DIGITAL W CAD [...] to exams dated: 08/03/2014 and 01/22/2011 [facility]. BREAST TISSUE:The tissue of both breasts [...] exam. Electronically signed by: Milo stein/penrad:03/11/2016 12:15:44 Service Writer Advisor: Charlene Cruz(Gabbi), [facility] letter sent: Normal Exam Reading location: [facility] BI-RADS: 1 Negative Procedure Note [...] made to exams dated: 08/03/2014 and 01/22/2011 [facility]. BREAST TISSUE:The tissue of both breasts [...] signed by: Milo Dacosta M.D. [email or web address]/[email or web address]:03/11/2016 12:15:44 Service Writer Advisor: Charlene Cruz(Gabbi), [facility] letter sent: Normal Exam Reading location: [facility] BI-RADS: 1 Negative us Maury Smith MD IMG MAMMO ORDERABLES Final Result from Last 3 Months or Most Recently Relevant to Health Maintenance Care Teams Fire Supervisor Relationship Specialty Start Date End Date Maury Smith MD [address] [place] [address] PCP - General Pediatrics 05/03/15
--- OUTSIDE RECORDS SUMMARY | 2024-08-16 11:57 | XMS_ITS | Clinical Summary ---
Author Organization [facility] Address [address] [facility] [place] [address] Care Team Providers Care Emergency Doctor Name Role Phone Maury Smith MD Primary Care Provider [phone] Allergies Active Allergy Reactions Criticality Noted Date [...] Encounters Date Type Department Care Team Description 08/11/2024 Orders Only [facility] Oncology and Hematology [facility] [address] [place] [address] Jez Crooks MD 08/10/2024 11:45 AM CDT Office Visit [facility] Oncology and Hematology [facility] [address] [place] [address] Jez Crooks MD Malignant neoplasm of urinary bladder, unspecified site (CMS/HCC) (Primary Dx); Other secondary thrombocytopenia 07/11/2024 External Device Data STL ABSTRACTION Provider, [...] Sign Reading Time Taken Comments Blood Pressure 131/89 08/10/2024 11:40 AM CDT Pulse 93 08/10/2024 11:40 AM CDT Temperature 36.9 C (98.4 F) 08/10/2024 11:40 AM CDT Respiratory Rate 16 08/10/2024 11:40 AM CDT Oxygen Saturation 98% 08/10/2024 11:40 AM CDT Inhaled Oxygen Concentration - - Weight 82.4 kg (181 lb 9.6 oz) 08/10/2024 11:40 AM CDT Height 162.6 cm (5' 4 ) 07/02/2022 9:49 AM CDT Body Mass Index 31.17 07/02/2022 9:49 AM CDT Plan of Treatment Upcoming Encounters Date Type Department Care Team (Late st Contact Info) Description 02/15/2025 11:00 AM SECURITY CHECKER Office Visit [facility] Oncology and Hematology [facility] [address] [facility] [address] [place] [address] Jez Crooks MD [address] [facility] [address] [place] [address] Health Maintenance Due Date Last Done Comments Pre-Diabetes and Diabetes Screening 1974 DTAP/TDAP/TD VACCINES (1 - Tdap) 1993 HEPATITIS B VACCINES (1 of 3 - 19+ 3-dose series) 1993 Traditional Medicare (ACO) A nnual Wellness Visit 1993 FIT-DNA Q 3 years 07/29/2019 FIT/FOBT [...] 06/27/2021, 06/20/19 22 Colorectal Cancer Screening 06/28/2031 Procedures Procedure Name Priority Date/Time Associated Diagnosis Comments BASIC METABOLIC PANEL Routine 08/10/2024 3:35 PM CDT CBC WITH DIFFERENTIAL Routine 08/10/2024 3:29 PM CDT from Last 3 Months Results * BASIC METABOLIC PANEL (08/10/2024 3:35 PM CDT) Blood Jez Crooks MD CHEMISTRY ORDERABLES Final Resu lt * CBC WITH DIFFERENTIAL (08/10/2024 3:29 PM CDT) Blood Jez Crooks MD HEMATOLOGY ORDERABLES Final Res ult from Last 3 Months Insurance MEDICARE PART A AND B MEDICAID [place] Care Teams Emergency Doctor Relationship Specialty Start Date End Date Maury Smith MD [address] [place] [id number] PCP - General Family Practice 07/23/22
--- OUTSIDE RECORDS SUMMARY | 2024-08-16 11:57 | XMS_ITS | Referral Summary ---
Author Organization [facility] Address [address] [place] [address] Care Team Providers Care Industrial Safety And Health Technician Name Role Phone Maury Smith MD Primary Care Provide r Dayne Humphrey MD Unavailable [phone] Allergies Active Allergy Reactions Criticality Noted [...] How often do you attend chur or mosque services? More than 4 times per year 12/22/2022 Do you belong to any clubs o r organizations such as yarsani groups, unions, fraternal or athletic groups, or [...] place to sleep or slept in a mcc (including now)? No 12/22/2022 Personal Safety Answer [...] on file Medical Devices Implanted Type Area Train Gateman Device Identifier Shelf Expiration Date Model / Serial / Lot [employer] Cecilia 7fr 80cm Open Tip Luer Lock Adapter Guidewire Graduate Straight Latex Free 160210 - [id number] Implanted:Qty: 2 on 12/21/2022 by Dayne Humphrey MD at [facility] Stent Bilateral: Ureter [employer] Cecilia 09/27/2026 [id number] / / [id number] Insurance [employer] MEDICARE [facility] MEDICARE [facility] MEDICARE MEDICARE [place] Advance Directives For more information, please contact: [phone] * Full Code (Latest Code Status on File) Date Activated Date Inactivated Comments 12/21/2022 4:32 PM 12/26/2022 4:50 PM Care Teams Industrial Safety And Health Technician Relationship Specialty Start Date End Date Maury Smith MD [address] [place] [address] PCP - General Family Medicine 12/08/22 [place] [address] [place] [address] Consulting Physician Urology 12/26/22
--- OUTSIDE RECORDS SUMMARY | 2024-08-16 11:57 | XMS_ITS | Encounter Summary ---
Author Organization [facility] [employer] [facility] Address [address] [place] [address] Care Team Providers Care Insulation Batting Machine Operator Name Role Phone Maury Smith MD Primary Care Provider [phone] Encounter Details Date Type Department Care Team (Late Contact Info) Description 08/11/2024 Orders Only [facility] Oncology and Hematology - [place] [address] [place] [address] Jez Crooks MD [address] [employer] [address] [place] [address] Social History Tobacco Use Types Packs/Day Years Used Date Smoking Tobacco: Former Cigarettes Smokeless Tobacco: Never Alcohol Use Standard Drinks/Week Comments Not Currently 0 (1 standard drink = 0.6 oz pur e alcohol) Comments Unknown Sex and Gender Information Value Date Recorded Sex Assigned at Not on file Legal Sex Female 9:33 AM CDT Gender Identity Not on file Sexual Orientation Not on file documented as of this encounter Plan of Treatment Upcoming Encounters Date Type Department Care Team (Late Contact Info) Description 02/15/2025 11:00 AM MAINTENANCE MECHANIC TECHNICIAN Office Visit [facility] Oncology and Hematology - [place] [address] [place] [address] Jez Crooks MD [address] [employer] [address] [place] [address] documented as of this encounter Procedures Procedure Name Priority Date/Time Associated Diagnosis Comments BASIC METABOLIC PANEL Routine 08/10/2024 3:35 PM CDT CBC WITH DIFFERENTIAL Routine 08/10/2024 3:29 PM CDT documented in this encounter Results * BASIC METABOLIC PANEL (08/10/2024 3:35 PM CDT) Blood us Jez Crooks MD CHEMISTRY ORDERABLES Final Resu lt * CBC WITH DIFFERENTIAL (08/10/2024 3:29 PM CDT) Blood us Jez Crooks MD HEMATOLOGY ORDERABLES Final Res ult documented in this encounter Visit Diagnoses Not on filedocumented in this encounter Care Teams Insulation Batting Machine Operator Relationship Specialty Start Date End Date Maury Smith MD [address] [place] [id number] PCP - General Family Practice 07/23/22 documented as of this encounter
[2024-08-16 12:15] LABS: Hematocrit 41.2 % (35.0-49.0); Hemoglobin 14.4 g/dL (12.0-15.0); Mean Corpuscular Hemoglobin 32.1 pg (27.0-31.0); Mean Corpuscular Volume 91.8 fL (78.0-102.0); Mean Platelet Volume 8.8 fl (9.2-11.8); Platelet Count Result 281 K/mm3 (150-420); Red Blood Count 4.49 M/mm3 (4.20-5.40); Red Cell Distribution Width 11.9 % (11.6-14.4); White Blood Count 8.1 K/mm3 (4.8-10.8)
== END 2024-08-16 11:44 | disposition home or self-care (01) ==
LOC: CHSLAB 11:46
PROVIDERS: PCP Family Medicine; Visit Provider Internal Medicine Hematology & Oncology
DX: D69.59 Other secondary thrombocytopenia (principal)
CPT/HCPCS: 36415; 85027

== ENCOUNTER 2024-10-11 09:54 | Outpatient (CLI) | payer MEDICARE, SELFPAY ==
--- NOTE | ~2024-10-11 | XR_ITS ---
Left wrist Technique: PA, oblique, lateral, and ulnar deviation views were obtained. Clinical History: Pain Findings: No acute fracture or dislocation is seen. Osseous alignment is anatomic. Joint spaces are p reserved. Soft tissues are unremarkable. Impression: Unremarkable left wrist radiographs. Reviewed, dictated and finalized at location . Impression: Unremarkable left wrist radiographs.
--- OUTSIDE RECORDS SUMMARY | 2024-10-11 10:06 | XMS_ITS | Clinical Summary ---
Author Organization [facility] Address [address] [facility], [place] [address] Phone Care Team Providers Care Cst Name Role Phone Maury Smith MD Primary [...] Comments Blood Pressure 142/86 02/05/2017 10:47 AM LABOR TRAINING MANAGER Pulse 96 02/05/2017 10:47 AM LABOR TRAINING MANAGER Temperature 36.7 C (98 F) 02/05/2017 10:47 AM LABOR TRAINING MANAGER Respiratory Rate 16 02/05/2017 10:47 AM LABOR TRAINING MANAGER Oxygen Saturation 99% 02/05/2017 10:47 AM LABOR TRAINING MANAGER Inhaled Oxygen Concentration - - Weight 68 kg (150 lb) 01/24/2016 8:33 AM CDT Height 162.6 cm (5' 4) 01/24/2016 8:33 AM CDT Body Mass Index 25.75 01/24/2016 8:33 AM CDT Plan of Treatment Health Maintenance Due Date Last Done Comments Hepatitis C Virus (HCV) Screening 1975 TdaP Immunization 1974 Hepatitis B Immunization (1 of 3 - 19+ 3-dose series) 1993 Cologuard 07/29/2019 Colonoscopy 07/29/2019 Colorectal Cancer Screening 07/29/2019 Immunochemical Fecal Occult Blood 07/29/2019 SARS-COV-2 Immunization (1 - 2023-25 season) 2023 Pneumococcal Immunization (5 0+ years) (1 of 1 - PCV) 2024 Zoster Immunization (1 of 2) 2024 Influenza Immunization (Seas on Ended) 2024 Respiratory Syncytial Virus (RSV) Immunization (Adult) (1 - 1-dose 75+ series) 2049 Discussion re Starting/Frequ ency of Mammograms Discontinued 03/11/2016 Human Papillomavirus (HPV) Immunization Aged Out No longer eligible b ased on patient's age to complete this topic Meningococcal Immunization (ACWY) Aged Out No longer eligible based on patient's age to complete this topic Rotavirus Immunization Aged Out No lo nger eligible based on patient's age to complete this topic Procedures Procedure Name Priority Date/Time Associated Diagnosis Comments MISTY SCREENING BILATERAL DIGITAL W CAD Routine 03/11/2016 9:08 AM LABOR TRAINING MANAGER Visit for screening mammogram from Last 3 Months or Most Recently Relevant to Health Maintenance Results * MISTY SCREENING BILATERAL DIGITAL W CAD (03/11/2016 9:08 AM LABOR TRAINING MANAGER) Anatomical Region Laterality Modality breast Bilateral Mammography 03/11/2016 8:52 AM LABOR TRAINING MANAGER Narrative 03/11/2016 3:31 PM LABOR TRAINING MANAGER - MISTY SCREENING BILATERAL DIGITAL W CAD [...] to exams dated: 08/03/2014 and 01/22/[address] [facility]. BREAST TISSUE:The tissue of both breasts [...] exam. Electronically signed by: Milo stein/penrad:03/11/2016 12:15:44 Transit Specialist: Charlene Cruz(Gabbi), [facility] letter sent: Normal Exam Reading location: [facility] BI-RADS: 1 Negative Procedure Note [...] to exams dated: 08/03/2014 and 01/22/[address] [facility]. BREAST TISSUE:The tissue of both breasts is [...] exam. Electronically signed by: Milo stein/penrad:03/11/2016 12:15:44 Transit Specialist: Charlene Cruz(R), [facility] letter sent: Normal Exam Reading location: [facility] BI-RADS: 1 Negative Maury Smith MD IMG MAMMO ORDERABLES Final Result from Last 3 Months or Most Recently Relevant to Health Maintenance Care Teams Cst Relationship Specialty Start Date End Date Maury Smith MD [address] [place] [address] PCP - General Pediatrics 05/03/15
--- OUTSIDE RECORDS SUMMARY | 2024-10-11 10:06 | XMS_ITS | Clinical Summary ---
Author Organization [facility] [place] [address] Care Team Providers Care Loan Funder Name Role Phone Maury Smith MD Primary Care Provider [phone] Allergies Active Allergy Reactions Criticality Noted Date [...] o bone Heart Disease Father Hypertension Father NC Father Diabetes Mother Hypertension Mother Hypertension Sister [...] on file Legal Sex Female 2:32 PM BAR ROLLER Gender Identity Not on file Sexual Orientation [...] 10:30 AM CDT Height 162.6 cm (5' 4) 06/18/2022 10:30 AM CDT Body Mass Index [...] this topic Insurance MEDICARE MEDICAID Care Teams Loan Funder Relationship Specialty Start Date End Date Maury Smith MD [address] [place] [address] PCP - General FAMILY PRACTICE 06/03/22
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
--- OUTSIDE RECORDS SUMMARY | 2024-10-11 10:06 | XMS_ITS | Referral Summary ---
Author Organization [facility] Address [address] [place] [address] Care Team Providers Care Director Of Assessment Name Role Phone Maury Smith MD Primary Care Provide r Dayne Humphrey MD Unavailable [phone] Allergies Active Allergy Reactions Criticality Noted [...] How often do you attend chur or baptist services? More than 4 times per year 12/22/2022 Do you belong to any clubs o r organizations such as rastafari groups, unions, fraternal or athletic groups, or [...] place to sleep or slept in a group home (including now)? No 12/22/2022 Personal Safety Answer [...] 6:38 AM CDT Height 162.6 cm (5' 4) 12/21/2022 6:38 AM CDT Body Mass Index 31.71 12/21/2022 6:38 AM CDT Plan of Treatment Not on file Medical Devices Implanted Type Area Events Specialist Device Identifier Shelf Expiration Date Model / Serial / Lot [employer] Cecilia 7fr 80cm Open Tip Luer Lock Adapter Guidewire Graduate Straight Latex Free [id number] - [id number] Implanted:Qty: 2 on 12/21/2022 by Dayne Humphrey MD at [facility] Stent Bilateral: Ureter [employer] Cecilia 09/27/2026 [id number] / / [id number] Insurance [place] MEDICARE [facility] MEDICARE [facility] MEDICARE MEDICARE [place] Advance Directives For more information, please contact: [phone] * Full Code (Latest Code Status on File) Date Activated Date Inactivated Comments 12/21/2022 4:32 PM 12/26/2022 4:50 PM Care Teams Director Of Assessment Relationship Specialty Start Date End Date Maury Smith MD [address] [place] [address] PCP - General Family Medicine 12/08/22 [place] [address] [place] [address] Consulting Physician Urology 12/26/22
--- OUTSIDE RECORDS SUMMARY | 2024-10-11 10:06 | XMS_ITS | Clinical Summary ---
[facility] Organization [facility] Address [address] [facility] [place] [address] Care Team Providers Care Animal Care Attendant Name Role Phone Maury Smith MD Primary Care Provider [phone] Allergies Active Allergy Reactions Criticality Noted Date [...] Encounters Date Type Department Care Team Description 09/12/2024 External Device Data STL ABSTRACTION Provider, Abstract 09/01/2024 Orders Only [facility] Oncology and Hematology [facility] [address] [place] [address] Jez Crooks MD 08/17/2024 External Device Data STL ABSTRACTION Provider, Abstract 08/16/2024 External Device Data STL ABSTRACTION Provider, Abstract 08/15/2024 External Device Data STL ABSTRACTION Provider, Abstract 08/11/2024 Orders Only [facility] Oncology and Hematology [facility] [address] [place] [address] Jez Crooks MD 08/10/2024 11:45 AM CDT Office Visit [facility] Oncology [facility] [address] [place] [address] Jez Crooks MD Malignant neoplasm of urinary bladder, unspecified site (CMS/HCC) (Primary Dx); Other secondary thrombocytopenia from Last 3 Months Family History Medical [...] 11:40 AM CDT Height 162.6 cm (5' 4) 07/02/2022 9:49 AM CDT Body Mass Index 31.17 07/02/2022 9:49 AM CDT Plan of Treatment Upcoming Encounters Date Type Department Care Team (Late st Contact Info) Description 02/15/2025 11:00 AM BLOCKER HEATED METAL FORMS Office Visit [facility] Oncology and Hematology [facility] [address] [facility] [address] [place] [address] Jez Crooks MD [address] [facility] [address] [place] [address] Health Maintenance Due Date Last Done Comments Pre-Diabetes and Diabetes Screening 1975 DTAP/TDAP/TD VACCINES (1 - Tdap) 1993 HEPATITIS B VACCINES (1 of 3 - 19+ 3-dose series) 1993 FIT-DNA Q 3 years 07/29/2019 FIT/FOBT Q 1 year 07/29/2019 Flex Sig/CT Colonography Q 5 years 07/29/2019 ZOSTER VACCINE (1 of 2) 2024 INFLUENZA VACCINE (#1) 2024 BREAST CANCER SCREENING 02/17/2025 02/18/20 24, 02/09/2024, 02/09/2024, Additional history exists PAP SMEAR 06/09/2025 06/09/2022, 05/27, 04/25/2021 CERVICAL CANCER SCREENING 06/10/2027 HPV/Cotest (21-29) 06/10/2027 06/09/2022 HPV/Cotest (30-65) 06/10/2027 06/09/2022 COLORECTAL SCREENING 06/28/2031 06/27/2021, 06/20/19 Colorectal Cancer Screening 06/28/2031 Procedures Procedure Name Priority Date/Time Associated Diagnosis Comments CBC WITH DIFFERENTIAL Routine 08/16/2024 10:50 AM CDT BASIC METABOLIC PANEL Routine 08/10/2024 3:35 PM CDT CBC WITH DIFFERENTIAL Routine 08/10/2024 3:29 PM CDT from Last 3 Months Results * CBC WITH DIFFERENTIAL (08/16/2024 10:50 AM CDT) Only the most recent of2 resultswithin the time period is included. Blood Jez Crooks MD HEMATOLOGY ORDERABLES Final Res ult * BASIC METABOLIC PANEL (08/10/2024 3:35 PM CDT) Blood Jez Crooks MD CHEMISTRY ORDERABLES Final Resu lt from Last 3 Months Insurance MEDICARE PART A AND B MEDICAID [place] Care Teams Animal Care Attendant Relationship Specialty Start Date End Date Maury Smith MD [address] [place] [address] PCP - General Family Practice 07/23/22
--- OUTSIDE RECORDS SUMMARY | 2024-10-11 10:06 | XMS_ITS | Clinical Summary ---
Author Organization [facility] Address [address] [place] [address] Care Team Providers Care Brick Off Bearer Name Role Phone Maury Smith MD Primary Care Provide r Dayne Humphrey MD Unavailable [phone] Allergies Active Allergy Reactions Criticality Noted [...] How often do you attend chur or faith services? More than 4 times per year 12/22/2022 Do you belong to any clubs o r organizations such as restorationist groups, unions, fraternal or athletic groups, or [...] place to sleep or slept in a assisted (including now)? No 12/22/2022 Personal Safety Answer [...] Ended) 2024 Medical Devices Implanted Type Area Salesperson Toy Trains And Accessories Device Identifier Shelf Expiration Date Model / Serial / Lot [employer] Cecilia 7fr 80cm Open Tip Luer Lock Adapter Guidewire Graduate Straight Latex Free 160-210 - [id number] Implanted:Qty: 2 on 12/21/2022 by Dayne Humphrey MD at [facility] Stent Bilateral: Ureter [employer] Cecilia 09/27/2026 [id number] / / [id number] [place] [address] MEDICARE [facility] MEDICARE [facility] MEDICARE MEDICARE [place] Advance Directives For more information, please contact: [phone] * Full Code (Latest Code Status on File) Date Activated Date Inactivated Comments 12/21/2022 4:32 PM 12/26/2022 4:50 PM Care Teams Brick Off Bearer Relationship Specialty Start Date End Date Maury Smith MD [address] [place] [address] PCP - General Family Medicine 12/08/22 [place] [address] [place] [address] Consulting Physician Urology 12/26/22
== END 2024-10-11 09:55 | disposition home or self-care (01) ==
LOC: CHSIMG 09:56
PROVIDERS: PCP Family Medicine; Visit Provider Family Medicine
DX: M25.532 Pain in left wrist (principal)
CPT/HCPCS: 73110

== ENCOUNTER 2024-10-12 08:32 | Outpatient (CLI) | payer MEDICARE, SELFPAY ==
--- OUTSIDE RECORDS SUMMARY | 2024-10-12 08:35 | XMS_ITS | Referral Summary ---
Author Organization [facility] Address [address] [place] [address] Care Team Providers Care Plant Facilities Technician Name Role Phone Maury Smith MD Primary Care Provide r Dayne Humphrey MD Unavailable [phone] Allergies Active Allergy Reactions Criticality Noted [...] How often do you attend chur or jehovah's witness services? More than 4 times per year 12/22/2022 Do you belong to any clubs o r organizations such as druze groups, unions, fraternal or athletic groups, or [...] place to sleep or slept in a fpc (including now)? No 12/22/2022 Personal Safety Answer [...] on file Medical Devices Implanted Type Area Power Superintendent Device Identifier Shelf Expiration Date Model / Serial / Lot [employer] Cecilia 7fr 80cm Open Tip Luer Lock Adapter Guidewire Graduate Straight Latex Free [id number] - [id number] Implanted:Qty: 2 on 12/21/2022 by Dayne Humphrey MD at [facility] Stent Bilateral: Ureter [employer] Cecilia 09/27/2026 [id number] / / [id number] Insurance [place]ND MEDICARE [facility] MEDICARE [facility] MEDICARE MEDICARE IDPA Advance Directives For more information, please contact: [phone] * Full Code (Latest Code Status on File) Date Activated Date Inactivated Comments 12/21/2022 4:32 PM 12/26/2022 4:50 PM Care Teams Plant Facilities Technician Relationship Specialty Start Date End Date Maury Smith MD [address] [place] [address] PCP - General Family Medicine 12/08/22 [place] [address] [place] [address] Consulting Physician Urology 12/26/22
--- OUTSIDE RECORDS SUMMARY | 2024-10-12 08:35 | XMS_ITS | Clinical Summary ---
Author Organization [facility] Address [address] [place] [address] Care Team Providers Care Box Spring Upholsterer Name Role Phone Maury Smith MD Primary Care Provide r Dayne Humphrey MD Unavailable [phone] Allergies Active Allergy Reactions Criticality Noted [...] How often do you attend chur or restorationism services? More than 4 times per year [...] Vaccine (1 of 2) 2024 Influenza Vaccine (#1) 2024 Medical Devices Implanted Type Area Park Naturalist Device Identifier Shelf Expiration Date Model / Serial / Lot [employer] Cecilia 7fr 80cm Open Tip Luer Lock Adapter Guidewire Graduate Straight Latex Free 160-210 - [id number] Implanted:Qty: 2 on 12/21/2022 by Dayne Humphrey MD at [facility] Stent Bilateral: Ureter [employer] Cecilia 09/27/2026 [id number] / / [id number] [place] [address] [place] [address] MEDICARE [facility] MEDICARE [facility] MEDICARE MEDICARE IDPA Advance Directives For more information, please contact: [phone] * Full Code (Latest Code Status on File) Date Activated Date Inactivated Comments 12/21/2022 4:32 PM 12/26/2022 4:50 PM Care Teams Box Spring Upholsterer Relationship Specialty Start Date End Date Maury Smith MD [address] [place] [address] PCP - General Family Medicine 12/08/22 [place] [address] [place] [address] Consulting Physician Urology 12/26/22
--- OUTSIDE RECORDS SUMMARY | 2024-10-12 08:35 | XMS_ITS | Clinical Summary ---
Author Organization [facility] Address [address] [facility] [place] [address] Care Team Providers Care Solar Installation Crew Supervisor Name Role Phone Maury Smith MD Primary Care Provider [phone] Allergies Active Allergy Reactions Criticality Noted Date [...] STL ABSTRACTION Provider, Abstract 09/01/[address] [facility] Oncology and Hematology [facility] [address] [place] [address] Jez Crooks MD 08/17/2024 External Device Data STL ABSTRACTION Provider, Abstract 08/16/2024 External Device Data STL ABSTRACTION Provider, Abstract 08/15/2024 External Device Data STL ABSTRACTION Provider, Abstract 08/11/[address] [facility] [address] [place] [address] Jez Crooks MD 08/10/2024 11:45 AM CDT Office Visit [facility] Oncology [facility] [place] [address] [place] [address] Jez Crooks MD Malignant neoplasm of urinary [...] st Contact Info) Description 02/15/2025 11:00 AM COMPUTER APPLICATIONS ENGINEER Office Visit [facility] Oncology and Hematology [facility] [address] [facility] [address] [place] [address] Jez Crooks MD [address] [facility] [address] [place] [address] Health Maintenance Due Date Last [...] A AND B [place] Care Teams Solar Installation Crew Supervisor Relationship Specialty Start Date End Date Maury Smith MD [address] [place] [address] PCP - General Family Practice 07/23/22
--- OUTSIDE RECORDS SUMMARY | 2024-10-12 08:35 | XMS_ITS | Clinical Summary ---
Author Organization [facility] Address [address] [facility] [place] [address] Phone Care Team Providers Care Rock Contractor Name Role Phone Maury Smith MD Primary [...] Comments Blood Pressure 142/86 02/05/2017 10:47 AM HAT BODY SORTER Pulse 96 02/05/2017 10:47 AM HAT BODY SORTER Temperature 36.7 C (98 F) 02/05/2017 10:47 AM HAT BODY SORTER Respiratory Rate 16 02/05/2017 10:47 AM HAT BODY SORTER Oxygen Saturation 99% 02/05/2017 10:47 AM HAT BODY SORTER Inhaled Oxygen Concentration - - Weight 68 [...] DIGITAL W CAD Routine 03/11/2016 9:08 AM HAT BODY SORTER Visit for screening mammogram from Last 3 Months or Most Recently Relevant to Health Maintenance Results * MISTY SCREENING BILATERAL DIGITAL W CAD (03/11/2016 9:08 AM HAT BODY SORTER) Anatomical Region Laterality Modality breast Bilateral Mammography 03/11/2016 8:52 AM HAT BODY SORTER Narrative 03/11/2016 3:31 PM HAT BODY SORTER - MISTY SCREENING BILATERAL DIGITAL W CAD [...] to exams dated: 08/03/2014 and 01/22/[address] [facility]. BREAST TISSUE:The tissue of both breasts is [...] exam. Electronically signed by: Milo stein/penrad:03/11/2016 12:15:44 Infection Control Coordinator: Charlene Cruz(Gabbi), [facility] letter sent: Normal Exam Reading location: [facility] BI-RADS: 1 Negative Procedure Note Milo Dacosta [...] to exams dated: 08/03/2014 and 01/22/2011 [facility]. BREAST TISSUE:The tissue of both breasts [...] exam. Electronically signed by: Milo stein/penrad:03/11/2016 12:15:44 Infection Control Coordinator: Charlene Cruz(R), [facility] letter sent: Normal Exam Reading location: [facility] BI-RADS: 1 Negative Maury Smith MD IMG MAMMO ORDERABLES Final Result from Last 3 Months or Most Recently Relevant to Health Maintenance Care Teams Rock Contractor Relationship Specialty Start Date End Date Maury Smith MD [address] [place] [address] PCP - General Pediatrics 05/03/15
[2024-10-12 08:46] LABS: Add Urine Microscopic? YES; Appearance Urine Clear (Clear); Glucose Urine UA Negative (Negative); Leukocyte Esterase Ur Negative (Negative); Nitrate Urine Positive (Negative); Specific Grav Ur 1.010 (1.010-1.020)
[2024-10-12 08:57] LABS: MALB Creatinine Ratio 7.8 mg/g (0-30)
[2024-10-12 09:14] LABS: Anion Gap 3 mmol/L (4-12); Blood Urea Nitrogen 10 mg/dL (7-17); Calcium 9.2 mg/dL (8.4-10.2); Carbon Dioxide 27 mmol/L (22-30); Chloride 107 mmol/L (98-107); Cholesterol 221 mg/dL (0-200); Estimated Glomerular Filt Rate > 60; Glucose 101 mg/dL (65-110); HDL Direct 40 mg/dL; Osmolality Calculated 283 mOsm/kg (285-295); Potassium 4.4 mmol/L (3.4-5.0); Sodium 137 mmol/L (137-145); Triglycerides 420 mg/dL (<150)
[2024-10-12 09:44] LABS: Thyroid Stimulating Hormone 0.776 uIU/mL (0.465-4.680)
== END 2024-10-12 08:33 | disposition home or self-care (01) ==
LOC: CHSLAB 08:33
PROVIDERS: PCP Family Medicine; Visit Provider Family Medicine
DX: I10 Essential (primary) hypertension (principal)
CPT/HCPCS: 36415; 80048; 80061; 81001; 82043; 84443

== ENCOUNTER 2025-02-05 09:31 | Outpatient (CLI) | payer MEDICARE, MEDICAID, SELFPAY ==
--- NOTE | ~2025-02-05 | CT_ITS ---
EXAMINATION: CT abdomen pelvis w con DATE: 02/05/2025 10:08 INDICATION: Malignant neoplasm of urinary bladder. TECHNIQUE: Computed tomography (CT) of the abdomen and pelvis was performed with 100 mL Omnipaque 350 intravenous contrast. Automated exposure control and iterative reconstruction technique were employed. The dose-length product was 486.29 mGy-cm. COMPARISON: CT abdomen and pelvis 08/01/24 FINDINGS: The visualized portions of the lung bases demonstrate mild atelectasis. No pleural effusion. The heart size is normal. No pericardial effusion. The liver and spleen are normal. There are changes of cholecystectomy. The pancreas and adrenal glands are normal. There are cysts in the kidneys bacilio suring up to 1.4 cm on the left. There is a left inguinal hernia containing fat. There are no dilated loops of bowel. The appendix is normal. There is an ileal conduit on the right. There is an umbilical hernia containing fat. There are no pathologically enlarged lymph nodes. There is no free intraperitoneal fluid. There is moderate lumbar spondylosis. There is a benign bone island in left pelvis. IMPRESSION: 1. No evidence of metastatic disease. Reviewed, dictated and finalized at location E. EN PRINTING SUPERVISOR
[2025-02-05 09:53] LABS: Estimated Glomerular Filt Rate > 60
--- OUTSIDE RECORDS SUMMARY | 2025-02-05 10:09 | XMS_ITS | Clinical Summary ---
Author Organization [facility] Address [address] [facility] [place] [address] Phone Care Team Providers Care Flying Teacher Name Role Phone Maury Smith MD Primary [...] Comments Blood Pressure 142/86 02/05/2017 10:47 AM SHRIMPER Pulse 96 02/05/2017 10:47 AM SHRIMPER Temperature 36.7 C (98 F) 02/05/2017 10:47 AM SHRIMPER Respiratory Rate 16 02/05/2017 10:47 AM SHRIMPER Oxygen Saturation 99% 02/05/2017 10:47 AM SHRIMPER Inhaled Oxygen Concentration - - Weight 68 [...] Cervical Cancer Screening (CCS) 2004 HPV/Cotest 2004 Cologuard 07/29/2019 Colonoscopy 07/29/2019 Colorectal Cancer Screening 07/29/2019 Immunochemical Fecal Occult Blood 07/29/2019 Pneumococcal Immunization (5 0+ years) (1 of 1 - PCV) 2024 Zoster Immunization (1 of 2) 2024 Influenza Immunization (#1) 2024 SARS-COV-2 Immunization ( - season) 2024 Respiratory Syncytial Virus (RSV) Immunization (Adult) [...] DIGITAL W CAD Routine 03/11/2016 9:08 AM SHRIMPER Visit for screening mammogram from Last 3 Months or Most Recently Relevant to Health Maintenance Results * MISTY SCREENING BILATERAL DIGITAL W CAD (03/11/2016 9:08 AM SHRIMPER) Anatomical Region Laterality Modality breast Bilateral Mammography 03/11/2016 8:52 AM SHRIMPER Narrative 03/11/2016 3:31 PM SHRIMPER - MISTY SCREENING BILATERAL DIGITAL W CAD [...] to exams dated: 08/03/2014 and 01/22/2011 [facility]. BREAST TISSUE:The tissue of both breasts [...] exam. Electronically signed by: Milo Dacosta M.D. mmd/penrad:03/11/2016 12:15:44 Material Assembler: Charlene Cruz(R), [facility] letter sent: Normal Exam Reading location: [facility] BI-RADS: 1 Negative Procedure Note Milo Dacosta MD - 03/11/2016 - MISTY SCREENING BILATERAL DIGITAL W CAD BILATERAL DIGITAL SCREENING MAMMOGRAM WITH CAD WITH MEDIOLATERAL OBLIQUE CRANIOCAUDAL: 03/11/2016 The study was acquired using digital technology and interpreted from soft copy. Current study was also evaluated with Instacart version 7.2. CLINICAL: Routine screening. Patient has no complaints. No personal history of cancer. No family history of breast cancer. COMPARISONS: Comparison is made to exams dated: 08/03/2014 and 01/22/2011 [facility]. BREAST TISSUE:The tissue of both breasts is [...] signed by: Milo Dacosta M.D. mmshanna/penrad:03/11/2016 12:15:44 Material Assembler: Charlene Cruz(R), [facility] letter sent: Normal Exam Reading location: [facility] BI-RADS: 1 Negative Maury Smith MD IMG MAMMO ORDERABLES Final Result from Last 3 Months or Most Recently Relevant to Health Maintenance Care Teams Flying Teacher Relationship Specialty Start Date End Date Maury Smith MD [address] [place] [address] PCP - General Pediatrics 05/03/15
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
--- OUTSIDE RECORDS SUMMARY | 2025-02-05 10:09 | XMS_ITS | Clinical Summary ---
[facility] Address [address] [place] [address] Care Team Providers Care Electronic Warfare Operator Name Role Phone Maury Smith MD Primary Care Provider [phone] Allergies Active Allergy Reactions Criticality Noted Date [...] Encounters Date Type Department Care Team Description 01/31/2025 External Device Data STL ABSTRACTION Provider, Abstract 01/24/2025 External Device Data STL ABSTRACTION Provider, Abstract 01/17/2025 External Device Data STL ABSTRACTION Provider, Abstract 01/16/2025 External Device Data STL ABSTRACTION Provider, Abstract 12/13/2024 External Device Data STL ABSTRACTION Provider, Abstract 12/12/2024 External Device Data STL ABSTRACTION Provider, Abstract [...] st Contact Info) Description 02/15/2025 11:00 AM NEWS BROADCASTER Office Visit [facility] Oncology and Hematology - [place] [address] [place] [address] Jez Crooks MD [address] [facility] [address] [place] [address] Health Maintenance Due Date Last [...] A AND B [place] Care Teams Electronic Warfare Operator Relationship Specialty Start Date End Date Maury Smith MD [address] [place] [address] PCP - General Family Practice 07/23/22
--- OUTSIDE RECORDS SUMMARY | 2025-02-05 10:09 | XMS_ITS | Clinical Summary ---
Author Organization [facility] Address [address] [place] [address] Care Team Providers Care Music Grapher Name Role Phone Maury Smith MD Primary Care Provide r Dayne Humphrey MD Unavailable [phone] Allergies Active Allergy Reactions Criticality Noted [...] Vaping Smokeless Tobacco: Never Social Connection and Isolation Panel Answer Date Recorded In a typical week, how many times do you talk on the phone with family, friends, or neighbors? More than three times a week 12/22/2022 How often do you get togethe r with friends or relatives? Never 12/22/2022 How often do you attend [facility] or amish services? More than 4 times per year 12/22/2022 Do you belong to any clubs o r organizations such as orthodox groups, unions, fraternal or athletic groups, or [...] place to sleep or slept in a residential (including now)? No 12/22/2022 Personal Safety Answer [...] (#1) 2024 Medical Devices Implanted Type Area Extruder Operator Multiple Device Identifier Shelf Expiration Date Model / Serial / Lot [employer] Cecilia 7fr 80cm Open Tip Luer Lock Adapter Guidewire Graduate Straight Latex Free 160-210 - [id number] Implanted:Qty: 2 on 12/21/2022 by Dayne Humphrey MD at [facility] Stent Bilateral: Ureter [employer] Cecilia 09/27/2026 [id number] / [id number] Insurance [facility] MEDICARE [place] MEDICARE [place] MEDICARE MEDICARE [place] Advance Directives For more information, please contact: [phone] * Full Code (Latest Code Status on File) Date Activated Date Inactivated Comments 12/21/2022 4:32 PM 12/26/2022 4:50 PM Care Teams Music Grapher Relationship Specialty Start Date End Date Maury Smith MD [address] [place] [address] PCP - General Family Medicine 12/08/22 [place] [address] [place] [address] Consulting Physician Urology 12/26/22
== END 2025-02-05 09:32 | disposition home or self-care (01) ==
LOC: CHSIMG 09:32
PROVIDERS: PCP Family Medicine; Visit Provider Internal Medicine Hematology & Oncology
DX: C67.9 Malignant neoplasm of bladder, unspecified (principal)
CPT/HCPCS: 74177; Q9967

== ENCOUNTER 2025-02-12 08:16 | Outpatient (CLI) | payer MEDICARE, MEDICAID, SELFPAY ==
--- NOTE | ~2025-02-12 | MM_ITS ---
EXAMINATION: screening [facility] BI w manuela INDICATION: Asymptomatic, referred for screening mammogram COMPARISON: 02/18/2024 through 10/20/2019 TECHNIQUE: Digital Breast Tomosynthesis CC, MLO views of Both breasts were obtained with computer-aided detection to assist in interpretation of the study. FINDINGS: The breasts are extremely dense, which lowers the sensitivity of mammography. There is a group of microcalcifications in the superior central right breast at anterior third. Elsewhere, there are no mammographic features of malignancy. IMPRESSION: 1. Right breast Incompletely characterized group of calcifications. 2. No evidence of malignancy in the Left breast. RECOMMENDATION: Right breast Diagnostic mammogram with true lateral, and appropriate magnification views. BI-RADS Category 0: Incomplete: Needs additional imaging evaluation. Reviewed, dictated and finalized at location B. L BUSINESS DIRECTOR IMPRESSION: 1. Right breast Incompletely characterized group of calcifications. 2. No evidence of malignancy in the Left breast. RECOMMENDATION: Right breast Diagnostic mammogram with true lateral, and appropriate magnificat ion views. BI-RADS Category 0: Incomplete: Needs additional imaging evaluation.
== END 2025-02-12 08:17 | disposition home or self-care (01) ==
LOC: CHSIMG 08:18
PROVIDERS: PCP Family Medicine; Visit Provider Family Medicine
DX: Z12.31 Encounter for screening mammogram for malignant neoplasm of breast (principal); R92.8 Other abnormal and inconclusive findings on diagnostic imaging of breast
CPT/HCPCS: 77063; 77067

== ENCOUNTER 2025-02-19 06:37 | Day surgery (SDC) | payer MEDICARE, MEDICAID, SELFPAY ==
[2025-02-06 13:09] VITALS: BMI 31.6
--- OUTSIDE RECORDS SUMMARY | 2025-02-19 06:41 | XMS_ITS | Clinical Summary ---
Author Organization [facility] Address [facility] [place] [address] Care Team Providers Care Service Promoter Salesperson Name Role Phone Maury Smith MD Primary Care Provider [phone] Allergies Active Allergy Reactions Criticality Noted Date [...] o bone Heart Disease Father Hypertension Father [place] Father Diabetes Mother Hypertension Mother Hypertension Sister [...] on file Legal Sex Female 2:32 PM NURSE OFFICE Gender Identity Not on file Sexual Orientation [...] Every 5 Years 2004 Mammogram Screening 2014 Pneumococcal Vaccine: 50+ Ye ars (1 of 1 - PCV) 2024 Zoster Vaccines (1 of 2) 2024 COVID-19 Vaccine ( - 2024-2 6 season) 2024 Influenza Adult (#1) 2024 Cervical Cancer Screening Pa p Smear (Age 30 to 64) Every 3 Years 06/09/2025 06/09/2022 Cervical Cancer Screening with HPV 06/09/2025 Hepatitis A Vaccines Aged Out No long er eligible based on patient's age to complete this topic Meningococcal B Vaccine Aged Out No l onger eligible based on patient's age to complete this topic Meningococcal Vaccine Aged Out No claire hardeep eligible based on patient's age to complete this topic RSV Immunizations Under 20 Months Aged Out No longer eligible based on patient's age to complete this topic Insurance MEDICARE MEDICAID Care Teams Service Promoter Salesperson Relationship Specialty Start Date End Date Maury Smith MD [address] [place] [address] PCP - General FAMILY PRACTICE 06/03/22
--- OUTSIDE RECORDS SUMMARY | 2025-02-19 06:41 | XMS_ITS | Clinical Summary ---
Author Organization [facility] Address [address] [facility], [place] [address] Phone Care Team Providers Care Television Journalist Name Role Phone Maury Smith MD Primary Care Provider [phone] Allergies Active Allergy Reactions Criticality Noted Date [...] Comments Blood Pressure 142/86 02/05/2017 10:47 AM LONE LEAD LINEMAN Pulse 96 02/05/2017 10:47 AM LONE LEAD LINEMAN Temperature 36.7 C (98 F) 02/05/2017 10:47 AM LONE LEAD LINEMAN Respiratory Rate 16 02/05/2017 10:47 AM LONE LEAD LINEMAN Oxygen Saturation 99% 02/05/2017 10:47 AM LONE LEAD LINEMAN Inhaled Oxygen Concentration - - Weight 68 [...] DIGITAL W CAD Routine 03/11/2016 9:08 AM LONE LEAD LINEMAN Visit for screening mammogram from Last 3 Months or Most Recently Relevant to Health Maintenance Results * MISTY SCREENING BILATERAL DIGITAL W CAD (03/11/2016 9:08 AM LONE LEAD LINEMAN) Anatomical Region Laterality Modality breast Bilateral Mammography 03/11/2016 8:52 AM LONE LEAD LINEMAN Narrative 03/11/2016 3:31 PM LONE LEAD LINEMAN - MISTY SCREENING BILATERAL DIGITAL W CAD [...] to exams dated: 08/03/2014 and 01/22/2011 [facility]. BREAST TISSUE:The tissue of both [...] signed by: Milo Dacosta M.D. mmd/penrad:03/11/2016 12:15:44 Appetizer Packer: Charlene Cruz(R), [facility] letter sent: Normal Exam Reading location: [facility] BI-RADS: 1 Negative Procedure Note Milo Dacosta MD - 03/11/2016 - MISTY SCREENING BILATERAL DIGITAL W CAD BILATERAL DIGITAL SCREENING MAMMOGRAM WITH CAD WITH MEDIOLATERAL OBLIQUE CRANIOCAUDAL: 03/11/2016 The study was acquired using digital technology and interpreted from soft copy. Current study was also evaluated with [employer] version 7.2. CLINICAL: Routine screening. Patient has no complaints. No personal history of cancer. No family history of breast cancer. COMPARISONS: Comparison is made to exams dated: 08/03/2014 and 01/22/2011 [facility]. BREAST TISSUE:The tissue of both breasts is [...] signed by: Milo Dacosta M.D. mmshanna/penrad:03/11/2016 12:15:44 Appetizer Packer: Charlene Cruz(R), [facility] letter sent: Normal Exam Reading location: [facility] BI-RADS: 1 Negative Maury Smith MD IMG MAMMO ORDERABLES Final Result from Last 3 Months or Most Recently Relevant to Health Maintenance Care Teams Television Journalist Relationship Specialty Start Date End Date Maury Smith MD [address] [place] [address] PCP - General Pediatrics 05/03/15
--- OUTSIDE RECORDS SUMMARY | 2025-02-19 06:41 | XMS_ITS | Clinical Summary ---
Author Organization [facility] Address [address] [place] [address] Care Team Providers Care Teacher Emotionally Impaired Name Role Phone Maury Smith MD Primary Care Provide r Dayne Humphrey MD Unavailable [phone] Allergies Active Allergy Reactions Criticality Noted [...] Never 12/22/2022 How often do you attend [facility] or faith services? More than 4 times [...] (#1) 2024 Medical Devices Implanted Type Area Wash Tank Tender Device Identifier Shelf Expiration Date Model / Serial / Lot [employer] Cecilia 7fr 80cm Open Tip Luer Lock Adapter Guidewire Graduate Straight Latex Free 160-210 - [id number] Implanted:Qty: 2 on 12/21/2022 by Dayne Humphrey MD at [facility] Stent Bilateral: Ureter [employer] Cecilia 09/27/2026 [id number] / [id number] Insurance [facility] [address] MEDICARE [place] MEDICARE [place] MEDICARE [facility] Address: [address] [address] [place] [address] MEDICARE [place] Advance Directives For more information, please contact: [phone] * Full Code (Latest Code Status on File) Date Activated Date Inactivated Comments 12/21/2022 4:32 PM 12/26/2022 4:50 PM Care Teams Teacher Emotionally Impaired Relationship Specialty Start Date End Date Maury Smith MD [address] [place] [address] PCP - General Family Medicine 12/08/22 [place] [address] [place] [address] Consulting Physician Urology 12/26/22
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
--- OUTSIDE RECORDS SUMMARY | 2025-02-19 06:41 | XMS_ITS | Clinical Summary ---
Author Organization [facility] Address [address] [place] [address] Care Team Providers Care Analytical Consultant Name Role Phone Maury Smith MD Primary Care Provider [phone] Allergies Active Allergy Reactions Criticality Noted Date [...] Encounters Date Type Department Care Team Description 02/05/2025 Orders Only [facility] Oncology and Hematology - [facility] [address] [facility] [address] [place] [address] Jez Crooks MD 01/31/2025 External Device Data STL ABSTRACTION Provider, [...] Care Team (Late st Contact Info) Description 02/21/2025 10:00 AM DRAWBENCH OPERATOR Office Visit [facility] Oncology and Hematology [facility] [address] [facility] [address] [place] [address] Jez Crooks MD [address] [facility] [address] [place] [address] Health Maintenance Due Date Last [...] Procedure Name Priority Date/Time Associated Diagnosis Comments CT ABDOMEN PELVIS W CONTRAST Routine 02/05/2025 12:47 PM DRAWBENCH OPERATOR from Last 3 Months Results * CT ABDOMEN PELVIS W CONTRAST (02/05/2025 12:47 PM DRAWBENCH OPERATOR) Anatomical Region Laterality Modality Abdomen Computed Tomogra phy Jez Crooks MD CT ORDERABLES Final Result from Last 3 Months Insurance MEDICARE PART A AND B [place]ICAID [place] Care Teams Analytical Consultant Relationship Specialty Start Date End Date Maury Smith MD [address] [place] [address] PCP - General Family Practice 07/23/22
[2025-02-19 07:02] VITALS: BP 132/95; PULSE 95; RESP 18; TEMP 36.6; O2SAT 100
[2025-02-19] MEDS: LACTATED RINGERS 1,000 ML 150 ML IV CONT (07:22)
--- NOTE | 2025-02-19 07:50 | WPDANESEPPF ---
Anes - Initial Pre Proc Eval Procedure: Operation Date: 02/19/25 08:30 Proposed Procedures p Screening Colonoscopy - Misael Love DO Date/Time: 02/19/25 07:50 Surgeon: Misael Love DO Pre Op Diagnosis: History of Adenoma Polyps Patient Data Age: 49 Gender: F Height: 1.6 m Weight: 79.5 kg Last Vital Signs Temp 97.9 F 02/19/25 07:02 Pulse 95 02/19/25 07:02 Resp 18 02/19/25 07:02 BP 132/95 H 02/19/25 07:02 Pulse Ox 100 02/19/25 07:02 O2 Del Method Room Air 02/19/25 07:02 Allergies Allergy/AdvReac Type Severity Reaction Status Date / Time naproxen Allergy Unknown Hives Verified 02/19/25 06:59 Sulfa (Sulfonamide Allergy Unknown Hives Verified 02/19/25 06:59 Antibiotics) tramadol AdvReac Unknown Hypotension Verified 02/19/25 06:59 IV DYE Allergy Intermediate Hives Uncoded 07/23/23 10:00 Home Medications ?Medication ?Instructions ?Recorded ?Confirmed ?Type cyclobenzaprine 10 mg tablet 10 mg PO HS PRN Pain 11/12/19 02/19/25 History estradiol 0.5 mg tablet 0.5 mg PO DAILY 04/14/22 02/19/25 History famotidine 40 mg tablet 40 mg PO DAILY PRN acid reflux 04/14/22 02/19/25 History progesterone micronized 200 mg 200 mg PO DIRECTED 04/14/22 02/19/25 History capsule losartan 50 mg-hydrochlorothiazide 1 tablet PO DAILY 04/30/22 02/19/25 History 12.5 mg tablet albuterol sulfate 90 mcg/actuation 1 inh inhalation QID PRN 07/03/22 02/19/25 History aerosol inhaler Bronchospasm ibuprofen 600 mg tablet 600 mg PO Q6H PRN pain #14 tabs 07/08/22 02/19/25 Rx hydrocodone 5 mg-acetaminophen 325 1 tablet PO Q6H PRN Pain 07/15/23 02/19/25 History mg tablet escitalopram oxalate 10 mg tablet 10 mg PO DAILY 02/06/25 02/19/25 History Patient hx anesthesia problems: none Family hx anesthesia problems: none Results Review: All pre-operative results and documents have been reviewed as part of the pre-operative evaluation. [facility] Past Medical History Medical History Asthma COPD (chronic obstructive pulmonary disease) DDD (degenerative disc disease) Depression GERD (gastroesophageal reflux disease) SI (sacroiliac) joint dysfunction Social History Social History Smoking packs per day: 0.5 Smoking cigarettes per day: 10.0 Years smoked: 25 Smoking pack-years: 12.50 Smoking status: Current some day smoker Tobacco type: cigarettes and e-cigarettes/vaping Smoking end date: 03/29/19 Additional smoking assessment comments: QUIT CIGARETTES, NOW VAPING Alcohol intake: never Substance use: never Substance use type: does not use Living arrangements: with family Spiritual care concerns: No Anes - Eval Final PreProcedure Day of Procedure 02/19/25 07:50 Heart: regular rate and rhythm Lungs: clear to auscultation Airway: Mallampati scale class II Neurological: alert and oriented Last oral intake: >/= 8 hours ASA classification: II Anesthetic plan: proceed Anesthesia type and monitoring: general Results Review: All pre-operative results and documents have been reviewed as part of the pre-operative evaluation. Informed Consent: The patient's anesthetic plan and its attendant risks and benefits were discussed with the patient/family/POA. Questions were solicited and answers provided to the satisfaction of the patient/family/POA.
--- NOTE | 2025-02-19 09:15 | PM.IMHP ---
H&P: HPI History of Present Illness Date/Time: 02/19/25 09:15 Chief Complaint: hx colon polyps Narrative: 49 yo presents for colonoscopy. Last done 3 years ago and multiple polyps removed. Denies hematochezia/melena. Fam hx colon cancer in 2nd degree relative. Review of Systems Review of Systems: All systems reviewed & are unremarkable except as noted in HPI and below Constitutional: Constitutional: Denies chills, Denies fever(s), Denies headache(s) and Denies weight loss Eyes: Eyes: Denies change in vision ENT: Denies dizziness, Denies headache(s), Denies neck mass and Denies throat swelling Cardiovascular: Cardiovascular: Denies chest pain, Denies lightheadedness and Denies dyspnea Respiratory: Respiratory: Denies cough, Denies dyspnea and Denies wheezing Gastrointestinal: Gastrointestinal: Denies abdominal pain, Denies change in bowel habits, Denies nausea and Denies vomiting Genitourinary: Genitourinary: Denies hematuria and Denies dysuria Musculoskeletal: Musculoskeletal: Reports as per HPI Integumentary/Breasts: Skin/Breast: Reports as per HPI Neurologic: Denies dizziness and Denies headache(s) Allergic/Immunologic: Allergic/Immunologic: Denies throat swelling and Denies wheezing FOR[facility]LY [facility] Past Medical History Medical History Asthma COPD (chronic obstructive pulmonary disease) DDD (degenerative disc disease) Depression GERD (gastroesophageal reflux disease) SI (sacroiliac) joint dysfunction Social History Social History Smoking packs per day: 0.5 Smoking cigarettes per day: 10.0 Years smoked: 25 Smoking pack-years: 12.50 Smoking status: Current some day smoker Tobacco type: cigarettes and e-cigarettes/vaping Smoking end date: 03/29/19 Additional smoking assessment comments: QUIT CIGARETTES, NOW VAPING Alcohol intake: never Substance use: never Substance use type: does not use Living arrangements: with family Spiritual care concerns: No Meds Home Medications and Allergies Home Medications ?Medication ?Instructions ?Recorded ?Confirmed ?Type cyclobenzaprine 10 mg tablet 10 mg PO HS PRN Pain 11/12/19 02/19/25 History estradiol 0.5 mg tablet 0.5 mg PO DAILY 04/14/22 02/19/25 History famotidine 40 mg tablet 40 mg PO DAILY PRN acid reflux 04/14/22 02/19/25 History progesterone micronized 200 mg 200 mg PO DIRECTED 04/14/22 02/19/25 History capsule losartan 50 mg-hydrochlorothiazide 1 tablet PO DAILY 04/30/22 02/19/25 History 12.5 mg tablet albuterol sulfate 90 mcg/actuation 1 inh inhalation QID PRN 07/03/22 02/19/25 History aerosol inhaler Bronchospasm ibuprofen 600 mg tablet 600 mg PO Q6H PRN pain #14 tabs 07/08/22 02/19/25 Rx hydrocodone 5 mg-acetaminophen 325 1 tablet PO Q6H PRN Pain 07/15/23 02/19/25 History mg tablet escitalopram oxalate 10 mg tablet 10 mg PO DAILY 02/06/25 02/19/25 History Allergies Allergy/AdvReac Type Severity Reaction Status Date / Time naproxen Allergy Unknown Hives Verified 02/19/25 06:59 Sulfa (Sulfonamide Allergy Unknown Hives Verified 02/19/25 06:59 Antibiotics) tramadol AdvReac Unknown Hypotension Verified 02/19/25 06:59 IV DYE Allergy Intermediate Hives Uncoded 07/23/23 10:00 Vital Signs Vital Signs - 24 hr 02/19/25 07:02 Temperature 97.9 F Pulse Rate 95 Respiratory Rate 18 Blood Pressure 132/95 H Pulse Oximetry 100 Oxygen Delivery Room Air Exam Const: General: no acute distress and alert Orientation/consciousness: patient oriented x3 HENMT: Head: normocephalic and atraumatic Ears: hearing grossly normal bilaterally Face/Nose/Sinus: Normal nares present Mouth: Yes Normal oral and palatal mucosa present Eyes: Periorbital: periorbital findings normal Sclera: sclerae normal EOM: EOMs intact bilaterally Neck: Neck: normal visual inspection, no lymphadenopathy and trachea midline Chest: Chest palpation & inspection: normal inspection of the chest Resp: Effort & Inspection: normal respiratory effort Auscultation: clear to auscultation bilaterally Cardio: Jugular venous distension: no JVD Rate: regular rate Rhythm: regular rhythm Heart sounds: S1 normal heart sound present and S2 normal heart sound present Peripheral pulses: Peripheral pulses 2+ throughout GI: Inspection: normal to inspection GI Palp: Yes Soft to palpation, No Tenderness to palpation present (GI), No Guarding due to palpation present (GI) and No Rebound tenderness present Percussion: Yes normal to percussion Auscultation: normal bowel sounds : General: Yes no CVA tenderness Back/Spine/Pelvis: Back: no CVA tenderness Neuro: General: patient oriented x3, no focal motor deficits and CN's II-XI intact bilaterally Cognition (Neuro): normal cognition Speech: normal speech Motor exam (neuro): 5/5 motor strength present throughout Extrem: General: capillary refill normal and no clubbing, cyanosis or edema Assessment and Plan Assessment and plan (1) Hx of colonic polyps: Code(s): Z86.0100 - Personal history of colon polyps, unspecified Status: Acute Assessment and Plan: I have recommended colonoscopy. I have discussed the procedure, risks, benefits, and alternatives. Questions were answered. Patient is agreeable to proceed.
--- NOTE | 2025-02-19 09:19 | WPDANESPN ---
Anes - Prog Note Post-Op Date/Time: 02/19/25 09:19 Vital Signs: Last Vital Signs Temp 97.9 F 02/19/25 07:02 Pulse 95 02/19/25 07:02 Resp 18 02/19/25 07:02 BP 132/95 H 02/19/25 07:02 Pulse Ox 100 02/19/25 07:02 O2 Del Method Room Air 02/19/25 07:02 Pain Score (VAS): no Patient Feedback: Patient satisfied with anesthetic care.
[2025-02-19 09:48] VITALS: BP 104/68; PULSE 73; RESP 16; O2SAT 100
[2025-02-19 09:58] VITALS: BP 129/99; PULSE 77; RESP 20; O2SAT 100
[2025-02-19 10:08] VITALS: BP 123/97; PULSE 72; RESP 20; O2SAT 99
== END 2025-02-19 10:17 | disposition home or self-care (01) ==
PROVIDERS: PCP Family Medicine; Visit Provider Surgery
PROC: 0DJD8ZZ Inspection of Lower Intestinal Tract, Via Natural or Artificial Opening Endoscopic (ICD-10-PCS; CPT 45378; principal; 2025-02-19 08:30)
DX: Z12.11 Encounter for screening for malignant neoplasm of colon (principal); D12.3 Benign neoplasm of transverse colon; K57.30 Diverticulosis of large intestine without perforation or abscess without bleeding; K64.8 Other hemorrhoids
CPT/HCPCS: 45385

== ENCOUNTER 2025-02-19 10:27 | Outpatient (NON) | payer MEDICARE, MEDICAID, SELFPAY ==
--- NOTE | 2025-02-19 | S_PTH ---
PATIENT: Devika Nickerson LOC: ANAB #:[id number] AGE/SX: 49/F ROOM: RE02/19/[address]: Misael Love DO : 1975 BED: DIS: 02/19/2025 SPEC #: [id number] RECD: 02/20/25 10:48 STATUS: HARPREET REQ #: [id number] JUAN MIGUEL: 02/19/25 00:[address]: Misael Love DEPT: [facility] Surgical RECD BY: Juan Luis Mcallister ENTERED: 02/20/25 10:48 SP TYPE: Surgical OTHR DR: Maury Smith MD Tissues: A - Colon Polypectomy Procedures: Hematoxylin and Eosin Stain Gross and Microscopic Level 4
--- OUTSIDE RECORDS SUMMARY | 2025-02-20 11:49 | XMS_ITS | Clinical Summary ---
Author Organization [facility] Address [address] [address] Care Team Providers Care Chemical Test Engineer Name Role Phone Maury Smith MD Primary Care Provider [phone] Allergies Active Allergy Reactions Criticality Noted Date [...] Department Care Team Description 02/05/2025 Orders Only [facility] [place] [facility] [address] [place] [address] Jez Crooks MD 01/31/2025 External Device Data [...] st Contact Info) Description 02/21/2025 10:00 AM DIRECTOR OF SALES AND MARKETING Office Visit [facility] [place] [address] [facility] [address] [place] [address] Jez Crooks MD [address] [place] [address] Health Maintenance Due Date Last [...] PELVIS W CONTRAST Routine 02/05/2025 12:47 PM DIRECTOR OF SALES AND MARKETING from Last 3 Months Results * CT ABDOMEN PELVIS W CONTRAST (02/05/2025 12:47 PM DIRECTOR OF SALES AND MARKETING) Anatomical Region Laterality Modality Abdomen Computed Tomogra phy Jez Crooks MD CT ORDERABLES Final Result from Last 3 Months Insurance MEDICARE PART A AND B [place]ICAID [place] Care Teams Chemical Test Engineer Relationship Specialty Start Date End Date Maury Smith MD [address] [place] [address] PCP - General Family Practice 07/23/22
--- OUTSIDE RECORDS SUMMARY | 2025-02-20 11:49 | XMS_ITS | Clinical Summary ---
Author Organization [facility] Address [address] [place] [address] Care Team Providers Care Fondant Puff Maker Name Role Phone Maury Smith MD Primary Care Provide r Dayne Humphrey MD Unavailable [phone] Allergies Active Allergy Reactions Criticality Noted [...] Never 12/22/2022 How often do you attend [facility] or alevism services? More than 4 times per year 12/22/2022 Do you belong to any clubs o r organizations such as latter-day groups, unions, fraternal or athletic groups, or [...] place to sleep or slept in a long-term (including now)? No 12/22/2022 Personal Safety Answer [...] (#1) 2024 Medical Devices Implanted Type Area Molder Vacuum Device Identifier Shelf Expiration Date Model / Serial / Lot [employer] Cecilia 7fr 80cm Open Tip Luer Lock Adapter Guidewire Graduate Straight Latex Free 160-210 - [id number] Implanted:Qty: 2 on 12/21/2022 by Dayne Humphrey MD at [facility] Stent Bilateral: Ureter [employer] Cecilia 09/27/2026 [id number] / [id number] Insurance [facility] MEDICARE [place] MEDICARE [place] MEDICARE MEDICARE [place] Advance Directives For more information, please contact: [phone] * Full Code (Latest Code Status on File) Date Activated Date Inactivated Comments 12/21/2022 4:32 PM 12/26/2022 4:50 PM Care Teams Fondant Puff Maker Relationship Specialty Start Date End Date Maury Smith MD [address] [place] [address] PCP - General Family Medicine 12/08/22 [place] [address] [place] [address] Consulting Physician Urology 12/26/22
--- OUTSIDE RECORDS SUMMARY | 2025-02-20 11:49 | XMS_ITS | Clinical Summary ---
Author Organization [facility] Address [address] [facility] [place] [address] Phone Care Team Providers Care Process Control Technician Name Role Phone Maury Smith MD Primary Care Provider [phone] Allergies Active Allergy Reactions Criticality Noted Date [...] Comments Blood Pressure 142/86 02/05/2017 10:47 AM ASSOCIATE SOFTWARE ENGINEER Pulse 96 02/05/2017 10:47 AM ASSOCIATE SOFTWARE ENGINEER Temperature 36.7 C (98 F) 02/05/2017 10:47 AM ASSOCIATE SOFTWARE ENGINEER Respiratory Rate 16 02/05/2017 10:47 AM ASSOCIATE SOFTWARE ENGINEER Oxygen Saturation 99% 02/05/2017 10:47 AM ASSOCIATE SOFTWARE ENGINEER Inhaled Oxygen Concentration - - Weight 68 [...] DIGITAL W CAD Routine 03/11/2016 9:08 AM ASSOCIATE SOFTWARE ENGINEER Visit for screening mammogram from Last 3 Months or Most Recently Relevant to Health Maintenance Results * MISTY SCREENING BILATERAL DIGITAL W CAD (03/11/2016 9:08 AM ASSOCIATE SOFTWARE ENGINEER) Anatomical Region Laterality Modality breast Bilateral Mammography 03/11/2016 8:52 AM ASSOCIATE SOFTWARE ENGINEER Narrative 03/11/2016 3:31 PM ASSOCIATE SOFTWARE ENGINEER - MISTY SCREENING BILATERAL DIGITAL W CAD [...] to exams dated: 08/03/2014 and 01/22/2011 [facility]. BREAST TISSUE:The tissue of both breasts [...] signed by: Milo Dacosta M.D. mmd/penrad:03/11/2016 12:15:44 Airconditioning Drafting Officer: Charlene Cruz(R), [facility] letter sent: Normal Exam Reading location: [facility] BI-RADS: 1 Negative Procedure Note Milo Dacosta MD - 03/11/2016 - MISTY SCREENING BILATERAL DIGITAL W CAD BILATERAL DIGITAL SCREENING MAMMOGRAM WITH CAD WITH MEDIOLATERAL OBLIQUE CRANIOCAUDAL: 03/11/2016 The study was acquired using digital technology and interpreted from soft copy. Current study was also evaluated with [employer] version 7.2. CLINICAL: Routine screening. Patient has no complaints. No personal history of cancer. No family history of breast cancer. COMPARISONS: Comparison is made to exams dated: 08/03/2014 and 01/22/2011 [facility]. BREAST TISSUE:The tissue of both breasts [...] signed by: Milo Dacosta M.D. [email or web address]/[email or web address]:03/11/2016 12:15:44 Airconditioning Drafting Officer: Charlene Cruz(R), [facility] letter sent: Normal Exam Reading location: [facility] BI-RADS: 1 Negative Maury Smith MD IMG MAMMO ORDERABLES Final Result from Last 3 Months or Most Recently Relevant to Health Maintenance Care Teams Process Control Technician Relationship Specialty Start Date End Date Maury Smith MD [address] [place] [address] PCP - General Pediatrics 05/03/15
--- OUTSIDE RECORDS SUMMARY | 2025-02-20 11:49 | XMS_ITS | Clinical Summary ---
Author Organization [facility] Address [facility] [place] [address] Care Team Providers Care Technical Asst Name Role Phone Maury Smith MD Primary Care Provider [phone] Allergies Active Allergy Reactions Criticality Noted Date [...] o bone Heart Disease Father Hypertension Father AL Father Diabetes Mother Hypertension Mother Hypertension Sister [...] on file Legal Sex Female 2:32 PM DIRECTOR OF SPECIAL SERVICES Gender Identity Not on file Sexual Orientation [...] this topic Insurance MEDICARE MEDICAID Care Teams Technical Asst Relationship Specialty Start Date End Date Maury Smith MD [address] [place] [address] PCP - General FAMILY PRACTICE 06/03/22
== END 2025-02-19 10:28 | disposition home or self-care (01) ==
LOC: ANHLAB 02-20 10:29
PROVIDERS: PCP Family Medicine; Visit Provider Surgery
DX: Z12.11 Encounter for screening for malignant neoplasm of colon (principal); D12.3 Benign neoplasm of transverse colon
CPT/HCPCS: 88305

== ENCOUNTER 2025-02-21 09:28 | Outpatient (CLI) | payer MEDICARE, MEDICAID, SELFPAY ==
[2025-02-21 09:47] LABS: Hematocrit 41.9 % (37.0-47.0); Hemoglobin 14.8 g/dL (12.0-15.0); Mean Corpuscular HGB Conc 35.3 g/dl (32-36); Mean Corpuscular Hemoglobin 32.3 pg (26-34); Mean Corpuscular Volume 91.5 fl (80-100); Platelet Count Result 274 k/mm3 (150-375); Red Blood Count 4.58 M/mm3 (4.2-5.4); White Blood Count 6.8 K/mm3 (4.5-10.0)
[2025-02-21 09:52] LABS: Blood Urea Nitrogen 9 mg/dL (8-26); Carbon Dioxide 25 mmol/L (22-30); Chloride 102 mmol/L (98-109); Estimated Glomerular Filt Rate > 60; Glucose 110 mg/dL (70-105); Ionized Calcium (POC) 1.24 mmol/L (1.11-1.31); Potassium 3.4 mmol/L (3.5-4.9); Sodium 141 mmol/L (138-146)
--- OUTSIDE RECORDS SUMMARY | 2025-02-21 10:00 | XMS_ITS | Clinical Summary ---
Author Organization [facility] Address [facility] [place] [address] Care Team Providers Care Electronic Scale Subassembler Name Role Phone Maury Smith MD Primary Care Provider [phone] Allergies Active Allergy Reactions Criticality Noted Date [...] on file Legal Sex Female 2:32 PM INSPECTOR MULTIFOCAL LENS Gender Identity Not on file Sexual Orientation [...] this topic Insurance MEDICARE MEDICAID Care Teams Electronic Scale Subassembler Relationship Specialty Start Date End Date Maury Smith MD [address] [place] [address] PCP - General FAMILY PRACTICE 06/03/22
--- OUTSIDE RECORDS SUMMARY | 2025-02-21 10:00 | XMS_ITS | Clinical Summary ---
Author Organization [facility] Address [address] [place] [address] Care Team Providers Care Shipbuilding Draftsperson Name Role Phone Maury Smith MD Primary Care Provide r Dayne Humphrey MD Unavailable [phone] Allergies Active Allergy Reactions Criticality Noted [...] How often do you attend [facility] or judaism services? More than 4 times per year 12/22/2022 Do you belong to any clubs o r organizations such as anabaptist groups, unions, fraternal or athletic groups, or [...] place to sleep or slept in a long term (including now)? No 12/22/2022 Personal Safety Answer [...] (#1) 2024 Medical Devices Implanted Type Area Ramp Service Man Device Identifier Shelf Expiration Date Model / Serial / Lot [employer] Cecilia 7fr 80cm Open Tip Luer Lock Adapter Guidewire Graduate Straight Latex Free 160-210 - [id number] Implanted:Qty: 2 on 12/21/2022 by Dayne Humphrey MD at [facility] Stent Bilateral: Ureter [employer] Cecilia 09/27/2026 [id number] / [id number] Insurance [facility] MEDICARE [place] MEDICARE [place] MEDICARE MEDICARE [place] Advance Directives For more information, please contact: [phone] * Full Code (Latest Code Status on File) Date Activated Date Inactivated Comments 12/21/2022 4:32 PM 12/26/2022 4:50 PM Care Teams Shipbuilding Draftsperson Relationship Specialty Start Date End Date Maury Smith MD [address] [place] [address] PCP - General Family Medicine 12/08/22 [place] [address] [place] [address] Consulting Physician Urology 12/26/22
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
--- OUTSIDE RECORDS SUMMARY | 2025-02-21 10:01 | XMS_ITS | Clinical Summary ---
[facility] Organization [facility] Address [address] [place] [address] Care Team Providers Care Professor Of Food Biochemistry Name Role Phone Maury Smith MD Primary Care Provider [phone] Allergies Active Allergy Reactions Criticality Noted Date [...] Department Care Team Description 02/05/2025 Orders Only [facility] Oncology and Hematology - [place] [facility] [address] [address] [place] [address] Jez Crooks MD 01/31/2025 External Device Data [...] 07/02/2022 9:49 AM CDT Plan of Treatment Health Maintenance [...] PELVIS W CONTRAST Routine 02/05/2025 12:47 PM DRAFTER DIRECTIONAL SURVEY from Last 3 Months Results * CT ABDOMEN PELVIS W CONTRAST (02/05/2025 12:47 PM DRAFTER DIRECTIONAL SURVEY) Anatomical Region Laterality Modality Abdomen Computed Tomogra phy Jez Crooks MD CT ORDERABLES Final Result from Last 3 Months Insurance MEDICARE PART A AND B [place]ICAID [place] Care Teams Professor Of Food Biochemistry Relationship Specialty Start Date End Date Maury Smith MD [address] [place] [address] PCP - General Family Practice 07/23/22
--- OUTSIDE RECORDS SUMMARY | 2025-02-21 10:01 | XMS_ITS | Clinical Summary ---
Author Organization [facility] Address [address] [facility] [place] [address] Phone Care Team Providers Care Embedded Linux Engineer Name Role Phone Maury Smith MD [...] Comments Blood Pressure 142/86 02/05/2017 10:47 AM RADAR SIGNAL PROCESSING ENGINEER Pulse 96 02/05/2017 10:47 AM RADAR SIGNAL PROCESSING ENGINEER Temperature 36.7 C (98 F) 02/05/2017 10:47 AM RADAR SIGNAL PROCESSING ENGINEER Respiratory Rate 16 02/05/2017 10:47 AM RADAR SIGNAL PROCESSING ENGINEER Oxygen Saturation 99% 02/05/2017 10:47 AM RADAR SIGNAL PROCESSING ENGINEER Inhaled Oxygen Concentration - - Weight [...] DIGITAL W CAD Routine 03/11/2016 9:08 AM RADAR SIGNAL PROCESSING ENGINEER Visit for screening mammogram from Last 3 Months or Most Recently Relevant to Health Maintenance Results * MISTY SCREENING BILATERAL DIGITAL W CAD (03/11/2016 9:08 AM RADAR SIGNAL PROCESSING ENGINEER) Anatomical Region Laterality Modality breast Bilateral Mammography 03/11/2016 8:52 AM RADAR SIGNAL PROCESSING ENGINEER Narrative 03/11/2016 3:31 PM RADAR SIGNAL PROCESSING ENGINEER - MISTY SCREENING BILATERAL DIGITAL W [...] exams dated: 08/03/2014 and 01/22/[address] [facility]. BREAST TISSUE:The tissue of both breasts [...] signed by: Milo Dacosta M.D. mmd/penrad:03/11/2016 12:15:44 Aircraft Structural Repairer: Charlene Cruz(R), [facility] letter sent: Normal Exam Reading location: [facility] BI-RADS: 1 Negative Procedure Note Milo Dacosta MD - 03/11/2016 - MISTY SCREENING BILATERAL DIGITAL W CAD BILATERAL DIGITAL SCREENING MAMMOGRAM WITH CAD WITH MEDIOLATERAL OBLIQUE CRANIOCAUDAL: 03/11/2016 The study was acquired using digital technology and interpreted from soft copy. Current study was also evaluated with [employer] version 7.2. CLINICAL: Routine screening. Patient has no complaints. No personal history of cancer. No family history of breast cancer. COMPARISONS: Comparison is made to exams dated: 08/03/2014 and 01/22/2011 [facility]. BREAST TISSUE:The tissue of both breasts is [...] signed by: Milo Dacosta M.D. mmshanna/penrad:03/11/2016 12:15:44 Aircraft Structural Repairer: Charlene Cruz(R), [facility] letter sent: Normal Exam Reading location: [facility] BI-RADS: 1 Negative Maury Smith MD IMG MAMMO ORDERABLES Final Result from Last 3 Months or Most Recently Relevant to Health Maintenance Care Teams Embedded Linux Engineer Relationship Specialty Start Date End Date Maury Smith MD [address] [place] [address] PCP - General Pediatrics 05/03/15
[2025-02-21 12:49] LABS: Alanine Aminotransferase 37 U/L (6-35); Albumin Level 4.9 g/dL (3.5-5.1); Alkaline Phosphatase 51 U/L (38-126); Anion Gap 9 mmol/L (4-12); Aspartate Amino Transferase 45 U/L (14-36); Bilirubin,Total 1.0 mg/dL (0.2-1.3); Blood Urea Nitrogen 10 mg/dL (7-17); Calcium 9.7 mg/dL (8.4-10.2); Carbon Dioxide 26 mmol/L (22-30); Chloride 105 mmol/L (98-107); Estimated Glomerular Filt Rate > 60; Glucose 105 mg/dL (65-110); Potassium 3.5 mmol/L (3.4-5.0); Sodium 140 mmol/L (137-145); Total Protein 8.2 g/dL (6.3-8.2)
== END 2025-02-21 09:29 | disposition home or self-care (01) ==
PROVIDERS: PCP Family Medicine; Visit Provider Internal Medicine Hematology & Oncology
DX: D69.59 Other secondary thrombocytopenia (principal); C67.9 Malignant neoplasm of bladder, unspecified
CPT/HCPCS: 36415; 80047; 80053; 85027

== ENCOUNTER 2025-03-16 09:24 | Outpatient (CLI) | payer MEDICARE, MEDICAID, SELFPAY ==
--- NOTE | ~2025-03-16 | MM_ITS ---
EXAMINATION: MM diagnostic trish RT w manuela INDICATION: 49-year old female; BI-RADS 0, callback to evaluate Right breast calcification COMPARISON: 02/12/2025 TECHNIQUE: Digital breast tomosynthesis True lateral view and magnification CC and ML views of Right breast were obtained. FINDINGS: The breasts are extremely dense, which lowers the sensitivity of mammography. The calcifications seen in the superior central Right breast on the screening mammogram is not seen on the magnification views. Most likely these are artifacts. IMPRESSION: Negative mammogram. RECOMMENDATION: Annual screening mammography in 12 months BI-RADS 2, BENIGN Reviewed, dictated and finalized at location [facility]
--- OUTSIDE RECORDS SUMMARY | 2025-03-16 09:42 | XMS_ITS | Clinical Summary ---
[facility] Organization [facility] Address [address] [place] [address] Care Team Providers Care Cylinder Honer Name Role Phone Maury Smith MD Primary Care Provider [phone] Allergies Active Allergy Reactions Criticality Noted Date [...] Encounters Date Type Department Care Team Description 03/13/2025 External Device Data STL ABSTRACTION Provider, Abstract 02/28/2025 Orders Only [facility] Oncology and Hematology [facility] [address] [place] [address] Jez Crooks MD 02/21/2025 10:00 AM EXPELLER OPERATOR Office Visit [facility] Oncology and Hematology [facility] [address] [place] [address] Jez Crooks MD Malignant neoplasm of urinary bladder, unspecified site (CMS/HCC) (Primary Dx) 02/21/2025 Orders Only [facility] Oncology and Hematology [facility] [address] [place] [address] Jez Crooks MD Malignant neoplasm of urinary bladder, unspecified site (CMS/HCC) (Primary Dx) 02/05/2025 Orders Only [facility] Oncology and Hematology - [address] [place] [address] Jez Crooks MD 01/31/2025 External Device Data [...] Sign Reading Time Taken Comments Blood Pressure 120/85 02/21/2025 10:03 AM EXPELLER OPERATOR Pulse 80 02/21/2025 10:01 AM EXPELLER OPERATOR Temperature 36.8 C (98.3 F) 02/21/2025 10:01 AM EXPELLER OPERATOR Respiratory Rate 15 02/21/2025 10:01 AM EXPELLER OPERATOR Oxygen Saturation 97% 02/21/2025 10:01 AM EXPELLER OPERATOR Inhaled Oxygen Concentration - - Weight 81 kg (178 lb 9.6 oz) 02/21/2025 10:01 AM EXPELLER OPERATOR Height 162.6 cm (5' 4) 07/02/2022 9:49 AM CDT Body Mass Index 30.66 07/02/2022 9:49 AM CDT Plan of Treatment Upcoming Encounters Date Type Department Care Team (Late st Contact Info) Description 08/23/2025 11:45 AM CDT Office Visit [facility] On[facility] H[facility] [address] [facility] [address] [place] [address] Jez Crooks MD [address] [facility] [address] [place] [address] Health Maintenance Due Date Last [...] Procedure Name Priority Date/Time Associated Diagnosis Comments COMPREHENSIVE METABOLIC PANEL Routine 02/21/2025 11:24 AM EXPELLER OPERATOR CBC WITH AUTODIFFERENTIAL Routine 2024 10:[address] ABDOMEN PELVIS W CONTRAST Routine 02/05/2025 12:47 PM EXPELLER OPERATOR from Last 3 Months Results * COMPREHENSIVE METABOLIC PANEL (02/21/2025 11:24 AM EXPELLER OPERATOR) Blood us Jez Crooks MD CHEMISTRY ORDERABLES Final Resu lt * CBC WITH AUTODIFFERENTIAL (02/21/2025 10:54 AM EXPELLER OPERATOR) Blood us Jez Crooks MD HEMATOLOGY ORDERABLES Final Res ult * CT ABDOMEN PELVIS W CONTRAST (02/05/2025 12:47 PM EXPELLER OPERATOR) Anatomical Region Laterality Modality Abdomen Computed Tomogra phy us Jez Crooks MD CT ORDERABLES Final Result from Last 3 Months Insurance MEDICARE PART A AND B MEDICAID [place] Care Teams Cylinder Honer Relationship Specialty Start Date End Date Maury Smith MD [address] [place] [id number] PCP - General Family Practice 07/23/22
--- OUTSIDE RECORDS SUMMARY | 2025-03-16 09:42 | XMS_ITS | Clinical Summary ---
Author Organization [facility] Address [address] [place] [address] Care Team Providers Care Registration Scheduling Specialist Name Role Phone Maury Smith MD Primary Care Provide r Dayne Humphrey MD Unavailable [phone] Allergies Active Allergy Reactions Criticality Noted [...] Never 12/22/2022 How often do you attend [facility] or [facility] services? More than 4 times per year [...] (#1) 2024 Medical Devices Implanted Type Area Coordinating Producer Device Identifier Shelf Expiration Date Model / Serial / Lot [employer] Cecilia 7fr 80cm Open Tip Luer Lock Adapter [employer] Graduate Straight Latex Free 160-210 - [id number] Implanted:Qty: 2 on 12/21/2022 by Dayne Humphrey MD at [facility] Stent Bilateral: Ureter [employer] Cecilia 09/27/2026 [id number] / [id number] Insurance [facility] MEDICARE [place] MEDICARE [place] MEDICARE MEDICARE [place] Advance Directives For more information, please contact: [phone] * Full Code (Latest Code Status on File) Date Activated Date Inactivated Comments 12/21/2022 4:32 PM 12/26/2022 4:50 PM Care Teams Registration Scheduling Specialist Relationship Specialty Start Date End Date Maury Smith MD [address] [place] [address] PCP - General Family Medicine 12/08/22 [place] [id number] [place] [address] Consulting Physician Urology 12/26/22
--- OUTSIDE RECORDS SUMMARY | 2025-03-16 09:42 | XMS_ITS | Clinical Summary ---
Author Organization [facility] Address [address] [facility] [place] [address] Phone Care Team Providers Care Party Plan Demonstrator Name Role Phone Maury Smith MD Primary [...] Comments Blood Pressure 142/86 02/05/2017 10:47 AM TUMBLING MACHINE OPERATOR Pulse 96 02/05/2017 10:47 AM TUMBLING MACHINE OPERATOR Temperature 36.7 C (98 F) 02/05/2017 10:47 AM TUMBLING MACHINE OPERATOR Respiratory Rate 16 02/05/2017 10:47 AM TUMBLING MACHINE OPERATOR Oxygen Saturation 99% 02/05/2017 10:47 AM TUMBLING MACHINE OPERATOR Inhaled Oxygen Concentration - - Weight 68 [...] DIGITAL W CAD Routine 03/11/2016 9:08 AM TUMBLING MACHINE OPERATOR Visit for screening mammogram from Last 3 Months or Most Recently Relevant to Health Maintenance Results * MISTY SCREENING BILATERAL DIGITAL W CAD (03/11/2016 9:08 AM TUMBLING MACHINE OPERATOR) Anatomical Region Laterality Modality breast Bilateral Mammography 03/11/2016 8:52 AM TUMBLING MACHINE OPERATOR Narrative 03/11/2016 3:31 PM TUMBLING MACHINE OPERATOR - MISTY SCREENING BILATERAL DIGITAL W CAD [...] to exams dated: 08/03/2014 and 01/22/2011 [facility]. BREAST TISSUE:The tissue of both breasts is [...] signed by: Milo Dacosta M.D. mmd/penrad:03/11/2016 12:15:44 Family Nurse: Charlene Cruz(R), [facility] letter sent: Normal Exam Reading location: [facility] BI-RADS: 1 Negative Procedure Note Milo Dacosta MD - 03/11/2016 - MISTY SCREENING BILATERAL DIGITAL W CAD BILATERAL DIGITAL SCREENING MAMMOGRAM WITH CAD WITH MEDIOLATERAL OBLIQUE CRANIOCAUDAL: 03/11/2016 The study was acquired using digital technology and interpreted from soft copy. Current study was also evaluated with [employer] version 7.2. CLINICAL: Routine screening. Patient [...] signed by: Milo Dacosta M.D. mmshanna/penrad:03/11/2016 12:15:44 Family Nurse: Charlene Cruz(R), [facility] letter sent: Normal Exam Reading location: [facility] BI-RADS: 1 Negative Maury Smith MD IMG MAMMO ORDERABLES Final Result from Last 3 Months or Most Recently Relevant to Health Maintenance Care Teams Party Plan Demonstrator Relationship Specialty Start Date End Date Maury Smith MD [address] [place] [address] PCP - General Pediatrics 05/03/15
== END 2025-03-16 09:25 | disposition home or self-care (01) ==
PROVIDERS: PCP Family Medicine; Visit Provider Family Medicine
DX: R92.8 Other abnormal and inconclusive findings on diagnostic imaging of breast (principal)
CPT/HCPCS: 77061; 77065; G0279